=== PATIENT | male | born 1985 | race Caucasian/White ===

== ENCOUNTER 2022-06-18 07:42 | Outpatient (CLI) | payer OTHER, SELFPAY ==
[2022-06-18 08:52] LABS: SARS PCR* Negative SARS-CoV-2 (Negative)
--- NOTE | 2022-06-18 09:33 | W.ANESCHARGE ---
Anesthesia Charges Start Date/Time Anesthesia Start Date: 06/18/22 Anesthesia Start Time: 09:03 Stop Date/Time Anesthesia Stop Date: 06/18/22 Anesthesia Stop Time: 09:29 Summary Emergency: No
== END 2022-06-18 07:43 | disposition home or self-care (01) ==
LOC: OP CLINIC 07:43
PROVIDERS: PCP Nurse Practitioner Family; Visit Provider Surgery
DX: K52.9 Noninfective gastroenteritis and colitis, unspecified (principal); K57.30 Diverticulosis of large intestine without perforation or abscess without bleeding
CPT/HCPCS: 00811; 45380; 87635; 88305; J2704

== ENCOUNTER 2022-08-06 21:01 | Outpatient (CLI) | payer OTHER, SELFPAY ==
--- OUTSIDE RECORDS SUMMARY | 2022-08-06 21:04 | XMS_ITS | Continuity of Care Document ---
:1985 Author Organization [facility] Care Team Providers Name Role Phone [facility] Unavailable Unavailable Problems Combined list of problems from Department of Defense and Veterans Affairs facilities. It does not include entries that were removed or entered in error. Problem Status Onset Problem Type Date of Comments Source Date Resolution visit for: Inactive 07/26/20 Condition [facility] screening exam 11 depression Myopia, bilateral Active 10/03/18 Condition Do D 99 Regular Active 10/03/18 Condition DoD astigmatism, 99 bilateral Adjustment Disorder Active Condition [place] with Anxiety [place] HCS (ICD-9-CM 309.24) Concussion W/O Coma Active Condition [facility] HCS Gastroesophageal Active Condition [place] Reflux Disorder * [facility] (ICD-9-CM 530.81) Headaches * Active Condition [place] (ICD-9-CM 784.0) [place] [facility] Pain in joint Active Condition [place] involving shoulder V A HCS region (ICD-9-CM 719.41) Psychological Active Condition [place] factors affecting [facility] other physical condition (ICD-9-CM 316./V62.89) visit for: Active Condition [facility] services physical tendonitis Active Condition Do[place] bicipital left epistaxis Inactive Condition DoD joint pain, Active Condition Do[place] localized in the left shoulder assessment of Inactive Condition DoD patient condition work status blepharitis Inactive Condition DoD gastroenteritis Inactive Condition DoD visit for: Inactive Condition Do[place] examination of subpopulation astigmatism Inactive Condition [place] refractive error - Inactive Condition D oD myopia Diagnosis: Active Diagnosis [place] ICD-10-CM H53.30 [facility] Unspecified disorder of binocular visionwith Provider Comments: Unspecified Disorder of Binocular Vision Medications Combined list of outpatient medications from Department of Defense and Veterans Affairs facilities. Medications provided include 1) outpatient medications from the last 15 months, and 2) patient-reported medications. Medication Details Route Status Patient Prescription Prescription Last Ordering Order Source Instructions Expires Number Dispense Provider Date Date AMOX Active [id number] Nicholas EDWARDS 03/04/ Ph armac TR-POTASSIU 2 ENNIFER 2021 y Data M Transac CLAVULANATE tion (AMOXICILLI Service N/POTASSIUM Facilit CLAV), y 875-125 MG, TABLET, ORAL, SANDOZ, 20 ea. BOTTLE ESOMEPRAZOL TAKE 1 ORALLY ACTIVE NENA SUE 12/18/ [place] MAGNESIUM CAPSULE ER A 2010 OLIS V A 40MG CAP,EC BY MOUTH HCS EVERY DAY MODERNA Active [id number] BACHENBER 11/07/ P harmac COVID (12Y 1 G,RIDDHI 2021 y Clint a UP)VAC(EUA) Transac (COVID-19 tion vaccine, Service mRNA, Facilit [id number], y LNP-S (Moderna)/P F), 100MCG/0.5, VIAL, INTRAMUSC, MODERNA [employer], 5 ml VIAL OMEPRAZOLE Active [id number] BELLEFONTAINE, 11/07 4/ Pharmac (omeprazole 2 EPHANIE 2021 y Data ), 20 MG, Transac CAPSULE DR tion ORAL, Service SANDOZ, Facilit 1000 ea. y BOTTLE OMEPRAZOLE Active [id number] BELLEFONTAINE,ST 2/ Pharmac (omeprazole 2 EPHANIE 2021 y Data ), 20 MG, Transac CAPSULE , tion ORAL, Service SANDOZ, Facilit 1000 ea. y BOTTLE OMEPRAZOLE Active [id number] BELLEFONTAINE,ST 05/06 3/ Pharmac (omeprazole 2 EPHANIE 2021 y Data ), 20 MG, Transac CAPSULE DR tion ORAL, Service SANDOZ, Facilit 1000 ea. y BOTTLE OMEPRAZOLE Active [id number] EBONY 08/07 4/ Pharmac (omeprazole 1 ISMAEL 2020 y Data ), 20 MG, Transac CAPSULE DR tion ORAL, Service SANDOZ, Facilit 1000 ea. y BOTTLE PEG-3350 Active [id number] MAYER, P harmac AND 2 2021 y Data ELECTROLYTE Transac S (peg tion 3350/sod Service sulf/sod Facilit bicarb/sod y chloride/po tassium chloride), 236-22.74G, SOLN RECON, ORAL, [employer] PHARMA, 4000 ml BOTTLE Allergies, Adverse Reactions, Alerts Combined list of allergies from Department of Defense and Veterans Affairs facilities. It does not include entries that were removed or entered in error. Substance Category Reaction Severity Reaction Status Date Comments S ource type Reported No Known Drug Drug active R. W. Allergies allergy allergy 9 [place] [facility] Immunizations Combined list of available immunizations from the Department of Defense and Veterans Affairs facilities. Immunization Series Date Administered Site Reaction Lot CVX Drug St atus Comments Source Given By Number Code Cobbler Sole COVID-19, 08/27/ REECE MAYEN () Not C OVID-, DoD mRNA, LNP-S, 2020 MOTHY Given mRNA, PF, 100 mcg LNP-S, or 50 mcg PF, 100 dose mcg or 50 mcg dose Influenza, 1 16 150 Transcribed comple t Influenza DoD injectable, 2018 516 (TRS) ed , quadrivalent, inject abl preservative e, free quadrival ent, preservat michael free Influenza, 1 16 150 Seqirus (SEQ) comp let Influenza DoD injectable, 2018 518 ed , quadrivalent, inject abl preservative e, free quadrival ent, preservat michael free influenza 1 07/16/ UNK 88 Unknown (UNK) complet influenza DoD virus 2018 ed virus vaccine, vaccine, unspecified unspecif i formulation ed formulati on influenza, 1 [id number] Seqirus (SEQ) compl et influenza DoD injectable, 2016 ed , quadrivalent, inject abl contains e, preservative quadriv al ent, contains preservat michael Influenza, 1 9701 141 Seqirus (SEQ) comp let Influenza DoD seasonal, 2016 ed , injectable seasonal, injectabl e Influenza, 1 [id number] 141 Novartis complet I nfluenza DoD seasonal, 2016 Pharmaceutica ed , injectable l Preeit. (NOV) s easonal, injectabl e measles, 2 06/23/ UNK 03 Unknown (UNK) Not me asles, DoD mumps and 2015 Given mumps and rubella virus rubell a vaccine virus vaccine varicella 1 01/10/ UNK 21 Unknown (UNK) Not v aricella DoD virus vaccine 2015 Given virus vaccine Influenza, 1 07/30/ [id number] 150 Unknown (UNK) comple t Influenza DoD injectable, 2013 ed , quadrivalent, inject abl preservative e, free quadrival ent, preservat michael free Influenza, 1 09/11/ [id number] 153 Novartis complet I nfluenza DoD injectable, 2013 Pharmaceutica ed , Madin Grace l Preeti. (NOV) injectabl Canine e, Madin Kidney, Grace preservative Canine free Kidney, preservat michael free tetanus 1 07/29/ [id number] 115 Sanofi complet tetanu s DoD toxoid, 2011 Pasteur (PMC) ed toxo id, reduced reduced diphtheria diphtheri toxoid, and a toxoid , acellular and pertu is acellular vaccine, pertussis adsorbed vaccine, adsorbed Influenza, 1 07/29/ [id number] 140 [employer]KlNeuronex complet Influenza DoD seasonal, 2011 1AA (SKB) ed , injectable, seasonal , preservative injecta bl free e, preservat michael free Influenza, 1 07/11/ [id number] 140 MedImmune, complet Influenza DoD seasonal, 2010 Inc. (MED) ed , injectable, seasonal , preservative injecta bl free e, preservat michael free INFLUENZA, complet [place] UNSPECIFIED 2010 ed OL IS VA FORMULATION HC S influenza 1 07/28/ [id number] 15 CSL complet influe nza DoD virus 2010 Biotherapies, ed virus vaccine, Inc. (CSL) vaccin e, split virus split (incl. virus purified (incl. surface purified antigen)-reti surfac e red CODE antigen)- retired CODE Novel 1 08/19/ [id number] 127 Novartis complet Novel DoD influenza-H1N 2008 1A Pharmaceutica ed influenza 10-14, l Preeti. (NOV) -H1N1- 09, injectable injectabl e anthrax 3 08/17/ [id number] 24 Unknown (UNK) complet anthrax DoD vaccine 2009 ed vaccine influenza 1 06/30/ [id number] 15 Sanofi complet infl uenza DoD virus 2009 Pasteur (PMC) ed virus vaccine, vaccine, split virus split (incl. virus purified (incl. surface purified antigen)-reti surfac e red CODE antigen)- retired CODE anthrax 2 02/17/ [id number] 24 Emergent complet anthr ax DoD vaccine 2009 Bio[employer]ense ed vaccine [place] ([facility]) vaccinia 1 01/30/ [id number] 75 Unknown (UNK) comple t vaccinia DoD (smallpox) 2009 3A ed (smallpox vaccine ) vaccine anthrax 1 01/18/ [id number] 24 Emergent complet anthr ax DoD vaccine 2009 [employer] ed vaccine [employer] [place] (MIP) typhoid Vi 1 01/18/ [id number] 101 Sanofi complet typh oid DoD capsular 2008 Pasteur (PMC) ed Vi polysaccharid capsul ar e vaccine polysacch aride vaccine influenza 1 11/23/ [id number] 111 Unknown (UNK) compl et influenza DoD virus 2009 ed virus vaccine, vaccine, live, live, attenuated, attenuat e for d, for intranasal intranasa use l use TD(ADULT) 139 complet A RMY UNSPECIFIED 2008 ed FORMULATION influenza 1 10/17/ [id number] 111 MedImmune, complet influenza DoD virus 2008 Inc. (MED) ed virus vaccine, vaccine, live, live, attenuated, attenuat e for d, for intranasal intranasa use l use hepatitis B 3 07/12/ [id number] 43 [employer] [facility] t hepatitis DoD vaccine, 2006 0CA (SKB) ed B adult dosage vaccine , adult dosage hepatitis A 3 07/12/ AHAVB11 52 [employer] [facility] t hepatitis DoD vaccine, 2006 5CA (SKB) ed A adult dosage vaccine , adult dosage hepatitis A 2 11/12/ AHABB04 104 [facility] hepatitis DoD and hepatitis 2005 3CC (SKB) ed A and B vaccine hepatitis B vaccine measles, 1 0936P 03 Merck (MSD) complet me asles, DoD mumps and 2006 ed mumps and rubella virus rubell a vaccine virus vaccine tetanus and 1 10/10/ [id number] 09 Sanofi complet te tanus DoD diphtheria 2005 Pasteur (PMC) ed a nd toxoids, diphtheri adsorbed, a preservative toxoids , free, for adsorbed, adult use (2 preserv at Lf of tetanus michael fr ee, toxoid and 2 for edd lt Lf of use (2 Lf diphtheria of toxoid) tetanus toxoid and 2 Lf of diphtheri a toxoid) poliovirus 1 10/10/ Y0575 10 Sanofi complet polio viru DoD vaccine, 2006 Pasteur (PMC) ed s inactivated vaccine, inactivat ed meningococcal 1 10/10/ [id number] 32 Sanofi complet meningoco DoD polysaccharid 2006 Pasteur (PMC) ed ccal e vaccine polysacch (MPSV4) aride vaccine (MPSV4) hepatitis A 1 10/10/ AHABB03 104 SmithKline comple t hepatitis DoD and hepatitis 2006 0BA (SKB) ed A and B vaccine hepatitis B vaccine influenza 1 10/10/ [id number] 111 [facility] influenza DoD virus 2006 Inc. (MED) ed virus vaccine, vaccine, live, live, attenuated, attenuat e for d, for intranasal intranasa use l use Encounters Combined list of: 1) Encounters from Department of Veterans Affairs facilities going back up to the last 18 months. 2) Encounters from the Department of Defense facilities going back up to 280 months. Location Location Encounter Encounter Reason Attending ADM DC Stat us Disposition Source Details Type Number For Provider Date Date Visit OUTPATIENT [id number] RC, 10/09 Released w/o General SEEMA /2006 Limitations [facility] LAVINIA Teresa(IEP Optomet ry) OUTPATIENT [id number] 05/27 Released w /o Theater /2008 Limitations Facilit y OUTPATIENT [id number] 11/21 Released w /o Theater /2009 Limitations Facilit y OUTPATIENT [id number] 12/11 Released w /o Theater /2009 Limitations Facilit y OUTPATIENT [id number] harry REYES, 07/25 Release d w/o R. W. r SHANNON B Limitations Blis s injury [facility] JOSEPH Villatoro(Scor pion Team) OUTPATIENT [id number] harry NOLEN, 08/12 Release d R. W. r pain JOELLE with [place] Work/Duty [facility] Limitations JOSEPH Villatoro(Scor pion Team) [facility]PATIENT [id number] [facility], 08/22 Relea sed w/o R. W. UPDATE JOHN E. Limitations [place] [facility] JOSEPH Villatoro(Opto metry Clinic) OUTPATIENT [id number] f/u jose NOLEN, 09/04 Released R. W. harry LAI with [place] r Work/Duty [facility] Limitations JOSEPH Villatoro(Scor pion Team) OUTPATIENT [id number] ximena SCHWARTZ, 12/08 Release d w/o [place] 5 prescri CASANOVA Limitations hl p and [facility] request Optomet info ry) about laser surgery OUTPATIENT [id number] mha/430 [place], 03/17 Relea sed w/o [place]st[place] 0 6745 LEOBARDO GONZALEZIC Limitations hl [facility] M01B Red) OUTPATIENT [id number] pha/430 KENDRICK, 03/18 Release d w/o [place] 3 6745 ROGELIO Limitations hl BAH [facility] M01A Green) OUTPATIENT [id number] Notes ALEXIS 03/18 Relea sed w/o [facility] 6 Entered XI Limitations hl by: JUDAH [facility] LAUREN DEIDRE Hearing S,JUDAH Conserv A 13 ation) Mar 2019 0957 ------- ------- ------- ------- -- Audiogr am OUTPATIENT [id number] Gwendolyn REEVES, 07/16 Released w/o [place] 7 Entered MEG L Limitations hl by: [facility] LEANDRO, M01C MEG West) L 16 Jul 2019 0917 ------- ------- ------- ------- -- Flu late entry 019 OUTPATIENT [id number] MANISHA SCHWARTZ, 08/19 Release d w/o [place] 2 CASANOVA L Limitations hl [facility] Optomet ry) OUTPATIENT [id number] initial WENDY, 09/22 Relea sed w/o [place] 8 consult IFRAH Limitations hl [facility] Ophthal mology) OUTPATIENT [id number] BRIEF SHAW, 10/26 Released w/o [place] 0 SHANNON Limitations hl [facility]hthal [facility]) OUTPATIENT [id number] consent SHAW, 10/28 Releas ed [employer] 1 SHANNON with hl Work/Duty [facility] Limitations Ophthal mology) OUTPATIENT [id number] 1 day SHAW, 10/29 Released w/o [employer] 1 pop Limitations hl lasik [facility]) OUTPATIENT [id number] 1 week SHAW, 11/03 Release d w/o [place] 7 pop SHANNON Limitations hl lasik [facility] Ophthal [facility]) OUTPATIENT [id number] f/u EFREN, 11/30 Release d w/o [place] 7 lasik CASANOVA L /2020 Limitations hl surgery [facility] - Optomet [id number] ry) OUTPATIENT [id number] Sleep [place], 12/08 Release d w/o [place] 9 initial LEOBARDO CHIU Limitations h l /////// [facility]([address] Red) OUTPATIENT [id number] Gwendolyn KENDRICK, 12/16 Released w/o [employer] 2 Entered ROGELIO Limitations hl by: OLVIN [facility] JAIME, M01A JUMA Price) 17 Dec 2019 1534 ------- ------- ------- ------- -- Possibl e COVID J2 TELE [id number] Notes NIKKY, 12/20 Land varsha CONSULT 7 Entered hl by: [facility] Manju KENDRICK M01A CHARU Price) TORO Haley 21 Dec 2019 0828 ------- ------- ------- ------- -- Negativ e COVID OUTPATIENT [id number] Gwendolyn ZULUAGA, 01/18 Relea sed w/o [employer] 2 Entered Limitations hl by: GUANAKO [facility] HAYDEE M01A ALISE ARDON) EZEKIEL MUJICA 19 Jan 2020 1057 ------- ------- ------- ------- -- Labs OUTPATIENT [id number] Gwendolyn NICHOLAS, 01/23 Released w/o [employer] 6 Entered ALANIS P Limitations hl by: [facility] Nicholas NICHOLAS EREMY P Conserv Jan ation) 2019 1411 ------- ------- ------- ------- -- audiogr am OUTPATIENT [id number] shpe/ 1 KARYNA, 01/30 Releas ed w/o Landstu 1 [phone] FRANK H Limitations h l 5438 [facility] M01B Red) TELE [id number] Gwendolyn VENCES, 02/09 Land varsha CONSULT 7 Entered BOBBY hl by: [facility] CRISTOFER M01B ANO,THE Red) BINH M 10 Feb 2020 0849 ------- ------- ------- ------- -- Referra l to [facility] TELE [id number] Notes [facility], 02/13 Landstu CONSULT 2 Entered hl by: ALESSANDRO [facility] CRISTOFER M01B ANO,THE Red) [facility] 14 Feb 2020 0715 ------- ------- ------- ------- -- Referra l OUTPATIENT [id number] Notes [facility]02/16 Released w/o Landstu 9 Entered Limitations hl by: ALESSANDRO [facility], M01A TEJINDER Price) KIKA Negrete 17 Feb 2020 1014 ------- ------- ------- ------- -- care coordin ation follow up OUTPATIENT [id number] Notes [facility]02/22 Released w/o [place] 0 Entered Limitations hl by: ALESSANDRO [facility], M01A TEJINDER Price) KIKA Negrete 23 Feb 2020 1447 ------- ------- ------- ------- -- new bere hagen CASE [id number] Diagnos DORSIOBHAN-ERIC 04/03 [place] MANAGEMENT [id number] is: RAGINI POWER /2020 [facility] ICD-10- LLE L [facility] CM H53.30 Unspeci fied disorde r of binocul ar vision< br/>wit h Provide r Comment s: Unspeci fied Disorde r of Binocul ar Vision Procedures Combined list of: 1) Procedures from Department of Veterans Affairs facilities going back up to the last 18 months, not all VA non-surgical procedures are included; 2) All procedures from the Department of Defense facilities. Procedure Procedure Type Code Date Perfomer Comments Sourc e Ear mold/insert, CASILLASGAXIO DoD not disposable, any 019 JUDAH BRINK type DEIDRE Patient education, CASILLASGAXIO DoD not otherwise cla 019 LA, JUDAH ified, DEIDRE non-physician provider, individual, per se ion Threshold Audiogram Threshold Audiogram 0208T ALEXIS GOMEZ DoD (Pure Tone) (Pure Tone) 019 JUDAH BRINK Automated Automated DEIDRE Psychometric Psychometric 80825 MARGA [place] Emotional / Emotional / 019 LEOBARDO CHIU Behavioral A e ment Behavioral Assessment [facility] Services [id number] Adithya SCHWARTZ [facility] Fitting Monofocal Fitting Monofocal 019 L Except For Aphakia Except For Aphakia Ophthalmological Ophthalmological 31856 JOCELYNE SCHAWRTZ [facility] New Patient Start New Patient Start 019 L Comprehensive Care [place] [address] [facility] Refractive State Refractive State 019 [place] [address] JOHN [place] WITHOUT DoD Visual Acuity, Visual Acuity, 011 E. GLASSES Quantitative, Quantitative, 20/400 [facility] Bilateral Bilateral WITH GLASSES 20/20 OU [facility] UPDATED 12/04 FOR VISION [place] [address] [facility] Refractive State Refractive State 006 CHRISTOPHER M [facility] [address] [facility] Fitting Monofocal Fitting Monofocal 006 CHRISTOPHER M Except For Aphakia Except For Aphakia Influenza Split Influenza Split [address] [facility] Virus Vaccine IM Virus Vaccine IM MEG Villegas With Preservative With Preservative Quadrivalent 0.50mL Quadrivalent 0.50mL Dosage Dosage Immunization Immunization 32012 [facility] Administration By Administration By MEG Villegas Injection, One Injection, One Vaccine Vaccine Ophthalmological Ophthalmological 55917 [facility] Prior Patient Start Prior Patient Start L Comprehensive Care [place] [address] [facility] Refractive State Refractive State L Computerized Computerized 63774 [facility] Corneal Topography Corneal Topography L Ophthalmological Ophthalmological 39189 IFRAH NGUYEN [facility] New Patient Start New Patient Start L Comprehensive Care Comprehensive Care Corneal Pachymetry Corneal Pachymetry 45864 SAE NGUYEN Both Eyes Both Eyes L Laser in situ BOB, see [facility] keratomileusis JIMBO for surgery (LASIK) documents Postoperative Postoperative 99919 Do Piyush SQUIRES Visit, Without Visit, Without SHANNON Hendricks Laser in situ SCHWARTZ, CASANOVA Do D keratomileusis L (LASIK) Behavioral health Do Piyush [place] outreach service LEOBARDO CHIU (planned approach to reach a targeted population) Psychometric Psychometric 19193 [place], [facility]-20, [facility] Emotional / Emotional / LEOBARDO CHIU CSSRS, RIP, Behavioral A e ment Behavioral [place] Assessment Sleepiness scale Non-Physician Phone Non-Physician Phone [phone] Beverly SHER Call To Call To FLY Patient/Provider Patient/Provider Brief (5-10min) Brief (5-10min) Threshold Audiogram Threshold Audiogram 0208T GAVIN NICHOLAS (Pure Tone) (Pure Tone) P Automated Automated Patient education, ALANIS NICHOLAS not otherwise cla P ified, non-physician provider, individual, per se ion Coordinated care TEJINDER MCALLISTER [facility] fee, risk adjusted MERIZIER maintenance SCREENING TEST OF Do D VISUAL ACUITY, 011 QUANTITATIVE, BILATERAL SKIN TEST; [facility] TUBERCULOSIS, 009 INTRADERMAL IMMUNIZATION DoD ADMINISTRATION 006 (INCLUDES PERCUTANEOUS, INTRADERMAL, SUBCUTANEOUS, OR INTRAMUSCULAR INJECTIONS); 1 VACCINE (SINGLE OR COMBINATION VACCINE/TOXOID) HEPATITIS A AND [facility] HEPATITIS B VACCINE 006 (HEPA-HEPB), ADULT DOSAGE, FOR INTRAMUSCULAR USE FITTING OF [facility] SPECTACLES, EXCEPT 006 FOR APHAKIA; MONOFOCAL SKIN TEST; [facility] TUBERCULOSIS, 006 INTRADERMAL SKIN TEST; [facility] TUBERCULOSIS, 010 INTRADERMAL COORDINATED CARE DoD FEE, RISK ADJUSTED 020 MAINTENANCE COORDINATED CARE [facility] FEE, RISK ADJUSTED 020 MAINTENANCE SCREENING TEST OF Do D VISUAL ACUITY, 020 QUANTITATIVE, BILATERAL PATIENT EDUCATION, D oD NOT OTHERWISE 020 CLASSIFIED, NON-PHYSICIAN PROVIDER, INDIVIDUAL, PER SESSION TELE ASSESS & MGT Do D SRV PROV QUAL 020 NONPHYS HLTH CARE PRO TO EST PAT,PARENT,GUARD NOT ORIG REL ASSESS & MGT SRV PROV W/IN PREV 7 DAYS NOR LEAD ASSESS & MGT SRV/PX W/IN NXT 24 HR/SOON APT;5-10 MIN MED DIS BRIEF DoD EMOTIONAL/BEHAVIORA 020 L ASSESSMENT (EG, DEPRESSION INVENTORY, ATTENTION-DEFICIT/H YPERACTIVITY DISORDER [ADHD] SCALE), WITH SCORING AND DOCUMENTATION, PER STANDARDIZED INSTRUMENT LASER IN SITU [facility] KERATOMILEUSIS 020 (LASIK) POSTOPERATIVE DoD FOLLOW-UP VISIT, 020 NORMALLY INCLUDED IN THE SURGICAL PACKAGE, INDICATE THAT EVALUATION & MANAGEMENT SERVICE WAS PERFORMED DURING A POSTOPERATIVE PERIOD REASON RELATED ORIGINAL PROCEDURE POSTOPERATIVE DoD FOLLOW-UP VISIT, 020 NORMALLY INCLUDED IN THE SURGICAL PACKAGE, INDICATE THAT EVALUATION & MANAGEMENT SERVICE WAS PERFORMED DURING A POSTOPERATIVE PERIOD REASON RELATED ORIGINAL PROCEDURE LASER IN SITU [facility] KERATOMILEUSIS 020 (LASIK) OPHTHALMOLOGICAL DoD SERVICES: MEDICAL 020 EXAMINATION AND EVALUATION, WITH INITIATION OR CONTINUATION OF DIAGNOSTIC AND TREATMENT PROGRAM; INTERMEDIATE, ESTABLISHED PATIENT OPHTHALMIC [facility] ULTRASOUND, 019 ECHOGRAPHY, DIAGNOSTIC; CORNEAL PACHYMETRY, UNILATERAL OR BILATERAL (DETERMINATION OF CORNEAL THICKNESS) COMPUTERIZED [facility] CORNEAL TOPOGRAPHY, 019 UNILATERAL OR BILATERAL, WITH INTERPRETATION AND REPORT IMMUNIZATION DoD ADMINISTRATION 019 (INCLUDES PERCUTANEOUS, INTRADERMAL, SUBCUTANEOUS, OR INTRAMUSCULAR INJECTIONS); 1 VACCINE (SINGLE OR COMBINATION VACCINE/TOXOID) PURE TONE [facility] AUDIOMETRY 019 (THRESHOLD), AUTOMATED; AIR ONLY SCREENING TEST OF Do D VISUAL ACUITY, 019 QUANTITATIVE, BILATERAL BRIEF DoD EMOTIONAL/BEHAVIORA 019 L ASSESSMENT (EG, DEPRESSION INVENTORY, ATTENTION-DEFICIT/H YPERACTIVITY DISORDER [ADHD] SCALE), WITH SCORING AND DOCUMENTATION, PER STANDARDIZED INSTRUMENT FITTING OF DoD SPECTACLES, EXCEPT 019 FOR APHAKIA; MONOFOCAL Social History Combined list of available smoking, tobacco, and other social history from Department of Defense andVeterans Affairs facilities. Social History Type Response Date Comment Source Tobacco smoking status LIFETIME [facility] This section is an [facility] empty social history section.
--- OUTSIDE RECORDS SUMMARY | 2022-08-06 21:06 | XMS_ITS | Encounter Summary ---
:1985 Author Organization [facility] Address [address] [place] [address] Care Team Providers Name Role Phone Rody Washburn APRN C.N.PAlice, D.N.P. Primary Care Provid Reason for Referral Outpatient (Routine) - Closed Specialty Diagnoses / Procedures Referred By Contact Refer red To Contact Emergency Medicine Diagnoses Pain Left Ankle And Joints Left Foot Chino Shine [facility] Tequila GAVIRIA M.D. [address] [address] Referral ID Status Reason Start Date Expiration Date Visits Requ ested Visits Authorized [id number] Closed 06/14/2021 06/14/2022 1 1 Reason for Visit Reason Comments Leg Injury Encounter Details Date Type Department Care Team Description 06/14/2021 Emergency [place] [facility] Eliza Shine Pain Left Ankle And Mary Mehta III, M.D. Joints Left Foot [id number] (Primary Dx) [place] [phone] (Wo rk) Social History Tobacco Use Types Packs/Day Years Used Date Smoking Tobacco: Former Smokeless Tobacco: Never Alcohol Use Standard Drinks/Week Comments Yes 0 (1 standard drink = 0.6 oz pure alcoho l) 20 drinks weekly Alcohol Habits Answer Date Recorded How often do you have a drink containing 4 or more times a w lower sioux 03/15/2021 alcohol? How many drinks containing alcohol do you have 3 or 4 03/15/2021 on a typical day when you are drinking? How often do you have six or more drinks on one Never 03/15/2021 occasion? Social Isolation Answer Date Recorded In a typical week, how many times do you Twice a week 03/15/2021 talk on the phone with family, friends, or neighbors? How often do you get together with friends Once a week 03/15/2021 or relatives? How often do you attend mu-ism or uatsdin Never 03/15/2021 services? Do you belong to any clubs or organizations Yes 03/15/2021 such as mu-ism groups, unions, [employer] or athletic groups, or school groups? How often do you attend meetings of the More than 4 times pe r year 03/15/2021 clubs or organizations you belong to? Are you now , , , 03/15/2021 , never or living with a partner? Physical Activity Answer Date Recorded On average, how many days per week do you engage in moderate to 4 days 03/15/2021 strenuous exercise (like walking fast, running, jogging, dancing, swimming, biking, or other activities that cause a light or heavy sweat)? On average, how many minutes do you engage in exercise at th is 60 min 03/15/2021 level? Stress Answer Date Recorded Do you feel stress - tense, restless, nervous, or Only a lit tle 03/15/2021 anxious, or unable to sleep at night because your mind is troubled all the time - these days? Financial Resource Strain Answer Date Recorded How hard is it for you to pay for the very basics like Not v nika hard 03/15/2021 food, housing, medical care, and heating? Intimate Partner Violence Answer Date Recorded Within the last year, have you been afraid of your partner o r No 03/15/2021 ex-partner? Within the last year, have you been humiliated or emotionall y No 03/15/2021 abused in other ways by your partner or ex-partner? Within the last year, have you been kicked, hit, slapped, or No 03/15/2021 otherwise physically hurt by your partner or ex-partner? Within the last year, have you been raped or forced to have any No 03/15/2021 kind of sexual activity by your partner or ex-partner? Food Insecurity Answer Date Recorded Within the past 12 months, you worried that your food would Never true 03/15/2021 run out before you got money to buy more. Within the past 12 months, the food you bought just didn't N ever true 03/15/2021 last and you didn't have money to get more. Transportation Needs Answer Date Recorded In the past 12 months, has lack of transportation kept you f rom No 03/15/2021 medical appointments or from getting medications? In the past 12 months, has lack of transportation kept you f rom No 03/15/2021 meetings, work, or getting things needed for daily living? Housing Stability Answer Date Recorded In the last 12 months, was there a time when you were not ab le No 03/15/2021 to pay the mortgage or rent on time? In the last 12 months, how many places have you lived? 1 03/15/2021 In the last 12 months, was there a time when you did not hav e a No 03/15/[address] sleep or slept in a alf (including now)? Education Answer Date Recorded What is the highest level of school Master's degree (e.g., M A, MS, 03/14/2021 you have completed or the highest Shubham, MEd, MILLWORK ESTIMATOR, LAURA) degree you have received? Sex Assigned at Date Recorded Not on file documented as of this encounter Last Filed Vital Signs Vital Sign Reading Time Taken Comments Blood Pressure 138/89 06/14/2021 10:05 AM CDT Pulse 68 06/14/2021 10:05 AM CDT Temperature 36.8 ??C (98.2 ??F) 06/14/2021 10:05 AM CDT Respiratory Rate 16 06/14/2021 10:05 AM CDT Oxygen Saturation 98% 06/14/2021 10:05 AM CDT Inhaled Oxygen Concentration - - Weight 102 kg (224 lb 13.9 oz) 06/14/2021 10:07 AM CDT Height - - Body Mass Index 33.31 03/15/2021 10:53 AM CDT documented in this encounter Discharge Instructions AttachmentsThe following attachments cannot be sent through Care Everywhere.Foot Pain (Hong Konger)documented in this encounter Medications at Time of Discharge Medication Sig Dispensed Refills Start Date End Date diphenhydrAMINE-aceta Take 1 tablet by mouth 0 minophen (TYLENOL PM at bedtime as needed. EXTRA STRENGTH) sleep, do not take more 25-500 mg per tablet than 4 grams total of acetomenophen from all sources naproxen (NAPROSYN) Take 500 mg by mouth 2 0 05/06 500 mg tablet (two) times a day. omeprazole (PriLOSEC) Take 1 capsule (20 mg 90 capsule 3 08/24/[address] capsule total) by mouth daily. documented as of this encounter ED Notes Chino Shine III, M.D. - 06/14/2021 11:11 AM CDT Images from the original note were not included. SUBJECTIVE CHIEF COMPLAINT/REASON FOR VISIT Leg Injury HISTORY OF PRESENT ILLNESS History provided by: Patient and medical records Foot Injury Location: Foot Foot location: L foot Pain details: Quality: Aching, sharp and shooting Radiates to: Does not radiate Severity: Moderate Onset quality: Sudden Duration: 1 day Timing: Constant Progression: Worsening Chronicity: Recurrent Dislocation: no Foreign body present: No foreign bodies Prior injury to area: Yes Relieved by: NSAIDs (pain is improved with walking boot.) Worsened by: Bearing weight and flexion Associated symptoms: decreased ROM Associated symptoms: no back pain, no fatigue, no fever, no itching, no muscle weakness, no numbness, no stiffness, no swelling and no tingling Risk factors: no concern for non-accidental trauma, no frequent fractures, no known bone disorder, no obesity and no recent illness He has had problems with this for a month. He was previously put in a walking boot. REVIEW OF SYSTEMS Constitutional: Negative for fatigue and fever. HENT: Negative for congestion and sore throat. Respiratory: Negative for shortness of breath. Cardiovascular: Negative for leg swelling. Musculoskeletal: Positive for extremity pain. Negative for back pain and stiffness. Skin: Negative for itching. OBJECTIVE Initial Vitals Temperature Pulse Rate Heart Rate Resp Rate Blood Pressure SpO2 06/14/21 1005 06/14/21 1005 -- 06/14/21 1005 06/14/21 1005 06/14/21 1005 36.8 ??C 68 16 138/89 98 % Pain Score 06/14/21 1009 7 PHYSICAL EXAMINATION Constitutional: Nursing note and vitals reviewed. Musculoskeletal: Left foot: Swelling present. No foot drop. Feet: Neurological: Alert and oriented to person, place, and time. He has normal sensation. ASSESSMENT/PLAN IMPRESSION AND PLAN Persistent mid left foot pain that is worse today than in previous days. Initially there was a possibility of a Lisfranc fracture but none was identified. I recommended that he follow up with primary medical provider for consideration of more advanced imaging. In the meantime, he should continue with the boot and use [id number] medications for pain management. Reasons return to the emergency department discussed in detail. DIFFERENTIAL DIAGNOSIS Conditions include, but are not limited to: Fracture, sprain, contusion, dislocation, vascular damage, nerve damage, ligament damage, tendon damage, and other etiologies. I reviewed previous medical records including documentation from previous visits and radiology images/report. I personally reviewed the radiology image(s) and reviewed the radiology report(s). The Radiology exam interpretation(s) is/are normal. Final Diagnoses: as of Jun 14 1111 Pain Left Ankle And Joints Left Foot Chino Shine III, M.D. 06/14/211919 documented in this encounter Plan of Treatment Scheduled Referrals Name Type Priority Associated Order Schedule Diagnoses POST ED VISIT Outpatient Referral Routine Pain Left Ankle And Expected: Orthopedic Surgery Joints Left Foot 06/17 (Approximate), Expires: 06/26/2024 documented as of this encounter Procedures Procedure Name Priority Date/Time Associated Comments Diagnosis DX FOOT LEFT 3+ RAD - Semiurgent 06/14/2021 10:38 Resu lts for this VIEWS (Fast; most ED AM CDT procedure are in patients; some the results inpatients) section. documented in this encounter Results DX Foot Left 3+ Views (06/14/2021 10:38 AM CDT) Anatomical Region Laterality Modality Lower Extremity, Foot, Musculoskeletal RST LOS, Left Digital Radiography Musculoskeletal ARZ LOS, Muskuloskeletal FLA LOS Specimen (Source) Anatomical Collection Method Collection Time Re ceived Time Location / / Volume Laterality 06/14/2021 10:41 AM CDT Impressions 06/14/2021 10:42 AM CDT No acute abnormality. Narrative 06/14/2021 10:42 AM CDT EXAM: DX FOOT LEFT 3+ VIEWS COMPARISON: 06/04/2021 FINDINGS: Accessory ossicle adjacent to the cuboid and navicular. No acute fracture. No soft tissue abnormality. Procedure Note Kashmir Blake M.D. - 06/14/2021Formatti ng of this note might be different from the original. EXAM: DX FOOT LEFT 3+ VIEWS COMPARISON: 06/04/2021 FINDINGS: Accessory ossicle adjacent to the cuboid and navicular. No acute fracture. No soft tissue abnormality. IMPRESSION: No acute abnormality. Chino Shine III, M.D. IMG DIAGNOSTIC IMAGING PROCEDURES documented in this encounter Visit Diagnoses Diagnosis Pain Left Ankle And Joints Left Foot - P rimary documented in this encounter Care Teams Funeral Pre Arrangement Counselor Relationship Specialty Start Date End Date Rody Washburn APRN, C.N.P., D.N.P . PCP - General 05/07/[address] [place] [address] documented as of this encounter
--- OUTSIDE RECORDS SUMMARY | 2022-08-06 21:06 | XMS_ITS | Clinical Summary ---
:1985 Author Organization [facility] Address [address] [place] [address] Care Team Providers Name Role Phone Rody Washburn APRN, C.N.P., D.N.P. Primary Care Provid er Source Comments Patient records contain information from all sites at [facility]. For routine questions regarding patient records, call [phone] during business hours, M-F 8:00 AM - 5:00 PM Central Time. Record requests for emergency care only can be directed to [phone] at any time.[facility] Allergies No known active allergies Medications Medication Sig Dispensed Refills Start Date End Date Status diphenhydrAMINE-ac Take 1 tablet by 0 08/24/2017 Active etaminophen mouth at bedtime as (TYLENOL PM EXTRA needed. sleep, do not STRENGTH) 25-500 take more than 4 mg per tablet grams total of acetomenophen from all sources naproxen Take 500 mg by mouth. 0 05/17/2021 Active (NAPROSYN) 500 mg tablet naproxen Take 500 mg by mouth 0 05/17/2021 Active (NAPROSYN) 500 mg 2 (two) times a day. tablet omeprazole TAKE 1 CAPSULE BY 90 capsule 3 11/26/2021 Active (PriLOSEC) [address] capsule Active Problems Problem Noted Date Tear Hip Labral Initial Right 07/09/2018 Pain Hip Right 02/28/2015 Overview: Right hip borderline dysplasia. Femoroacetabular impingement. Gastroesophageal Reflux Disease Without Esophagitis Encounters Date Type Specialty Care Team Description 05/24/2022 Orders Only Rody Washburn APRN, C .N.P., Screening Lipid D.N.P. from Last 3 Months Immunizations Name Administration Dates Next Due Anthrax 08/17/2009 H1N1 Inj 08/19/2009 HepA / HepB 11/12/2005 HepA Adult 07/12/2007 HepB Adult 07/12/2007 IPV 10/10/2005 Influenza (IM) Preservative Free 07/08/2016, 10/26/2015, Influenza Split 07/07/2017, 07/30/2014, 08/18/2013, 07/28/2010 Influenza TIV (IM) 07/09/2016 Influenza, Injectable, Quadrivalent 07/16/2018, 07/17/2017 Influenza, Seasonal, Injectable 07/11/2015, 07/26/2014, 10/2012 Influenza, Unspecified 07/20/2020, 07/16/2018, 09/11/2013, 08/06/2010 MPSV4 10/10/2005 PPSV23 10/27/2012 Smallpox 01/30/2009 Td, (Adult) Unspecified 10/06/2008, 10/10/2005 Tdap 07/29/2012 TyVi (inj) 01/18/2009 CHARI 10/06/1988 influenza LAIV (Nasal) (2 years 11/23/2008 through 49 years) influenza high dose (65 years or 07/07/2017, 07/30/2014, older) (PF) influenza vaccine quad 06/22/2020, 07/15/2019 (FLUZONE/FLUARIX) (6 months and older)(PF) Social History Tobacco Use Types Packs/Day Years Used Date Smoking Tobacco: Former Smokeless Tobacco: Never Alcohol Use Standard Drinks/Week Comments Yes 0 (1 standard drink = 0.6 oz pure alcoho l) 20 drinks weekly Alcohol Habits Answer Date Recorded How often do you have a drink containing 4 or more times a w marshall 03/15/2021 alcohol? How many drinks containing alcohol [...] or relatives? How often do you attend sabianism or mu-ism Never 03/15/2021 services? Do you belong to any clubs or organizations Yes 03/15/2021 such as sabianism groups, unions, fraternal or athletic groups, or school groups? How [...] pay for the very basics like Not liberty nika hard 03/15/2021 food, housing, medical care, [...] place to sleep or slept in a half-way (including now)? Education Answer Date Recorded What is the highest level of school Master's degree (e.g., M A, MS, 03/14/2021 you have completed or the highest Shubham, MEd, POTATO CHIP PROCESSING SUPERVISOR, LAURA) degree you have received? Sex Assigned at Date Recorded Not on file Last Filed Vital Signs Vital Sign Reading Time Taken Comments Blood Pressure 138/89 06/14/2021 10:05 AM CDT Pulse 68 06/14/2021 10:05 AM CDT Temperature 36.8 ??C (98.2 ??F) 06/14/2021 10:05 AM CDT Respiratory Rate 16 06/14/2021 10:05 AM CDT Oxygen Saturation 98% 06/14/2021 10:05 AM CDT Inhaled Oxygen Concentration - - Weight 102 kg (224 lb 13.9 oz) 06/14/2021 10:07 AM CDT Height 175 cm (5' 8.9) 03/15/2021 10:53 AM CDT Body Mass Index 33.31 03/15/2021 10:53 AM CDT Plan of Treatment Health Maintenance Due Date Last Done Comments HIV Screening 1985 Hepatitis C Screening 1985 Lipid (Cholesterol) 1985 Screening Depression Screening (Annual 10/06/2021 PHQ-2) COVID-19 Vaccine (4 - 10/22/2021 08/27/2021, 01/14/2021, Booster for Moderna series) 12/17/2020 DTaP,Tdap,and Td Vaccines (2 07/29/2022 07/29/2012, 009, - Td or Tdap) 10/10/2005 Hepatitis B Vaccines Completed 07/12/2007, 11/12/2005, 10/10/2005 Orthopoxvirus Vaccine Completed 01/30/2009 Pneumococcal vaccine (0-64 Aged Out 10/27/2012 No lo nger eligible years) based on patient 's age to complete this topic Influenza Vaccine Completed 07/11/2022, 07/04/2021, 07/20/2020, Additional history exists Medical Devices Implanted Type Area Granite Installer Device Shelf Model / Identifier Expiration Date Ser ial / Lot Trimed-Screw Magalie. 2.3mm X 24mm - [place] [id number] Hardware e.g. [employer] Implanted: Qty: 1 on 12/03/2012 pins/screws/r ods Description: Device Granite Installer - Tr[employer] d [employer].. Device Status Text - [id number]. Self Tap-Screw 4.5 X 76 - [place] [id number] Hardware e.g. pins/screws/r ods Depuy Synthes Implanted: Qty: 1 on 08/25/2017 Description: Device Granite Installer - Synth es. Device Status Text - [id number]. Insurance Payer Benefit Plan Subscriber ID Effective Dates Phone Address Type / Group SHU [place] JUNEDALE [id number] [facility] [phone] [facility] T [facility] t 8 [employer] [facility] [address] [place] [address] (Work) IRIS Guaman [phone] Care Teams Pool Table Operator Relationship Specialty Start Date End Date Rody Washburn APRN, C.N.P., D.N.P . PCP - General 05/07/[address] [place] [address]
--- OUTSIDE RECORDS SUMMARY | 2022-08-06 21:06 | XMS_ITS | Encounter Summary ---
:1985 Author Organization [facility] Address [address] [place] [address] Care Team Providers Name Role Phone Rody Washburn APRN, C.NMauro, D.N.P. Primary Care Provid Reason for Referral Outpatient (Routine) - Closed Specialty Diagnoses / Procedures Referred By Contact Refer red To Contact Diagnoses Pain Foot Left [facility] ThomasNMauro, D.N.P. [address] [place] [address] Referral ID Status Reason Start Date Expiration Date Visits Requ ested Visits Authorized [id number] Closed 06/04/2021 06/04/2022 1 1 Scheduling Instructions 3 weeks out please. Reason for Visit Reason Comments Follow-up Outpatient (Routine) - Closed Specialty Diagnoses / Procedures Referred By Contact Refer red To Contact Family Medicine Diagnoses Tendonitis Peroneal Left Karina Alicea V[facility] Thomas LEDESMANMauro, D.N.P. [address] [place] [phone] Referral ID Status Reason Start Date Expiration Date Visits Requ ested Visits Authorized [id number] Closed 05/22/2021 05/22/2022 1 1 Encounter Details Date Type Department Care Team Description 06/04/2021 Office Visit Department of Family Karina Alicea Pain Foot Left (Primary Dx); Medicine, [place] Shukla, Thomas LEDESMANAlicePAlice, Aleksandar holden Peroneal Left Building, in [place], [place] 200 [facility] [address] [place] [phone] Social History Tobacco Use Types Packs/Day Years Used Date Smoking Tobacco: Former Smokeless Tobacco: Never Alcohol Use Standard Drinks/Week Comments Yes 0 (1 standard drink = 0.6 oz pure alcoho l) 20 drinks weekly Alcohol Habits Answer Date Recorded How often do you have a drink containing 4 or more times a w [place] 03/15/2021 alcohol? How many drinks containing alcohol [...] or relatives? How often do you attend holiness or yazidi Never 03/15/2021 services? Do you belong to any clubs or organizations Yes 03/15/2021 such as holiness groups, unions, fraternal or athletic groups, or [...] place to sleep or slept in a jail (including now)? Education Answer Date Recorded What is the highest level of school Master's degree (e.g., M A, MS, 03/14/2021 you have completed or the highest Shubham, MEd, NAIL CUTTER, LAURA) degree you have received? Sex Assigned at Date Recorded Not on file documented as of this encounter Last Filed Vital Signs Vital Sign Reading Time Taken Comments Blood Pressure 130/81 06/04/2021 8:07 AM CDT Pulse 70 06/04/2021 8:07 AM CDT Temperature - - Respiratory Rate - - Oxygen Saturation - - Inhaled Oxygen Concentration - - Weight - - Height - - Body Mass Index - - documented in this encounter Progress Notes Karina Alicea V., BALTAZAR, C.N.P., D.N.P. - 06/04/2021 8:00 AM CDT CHIEF COMPLAINT / REASON FOR VISIT Jhon Banegas is a 35 y.o. male presenting today for evaluation of Follow-up SUBJECTIVE HISTORY OF PRESENT ILLNESS #1 Pain Foot Left #2 Tendonitis Peroneal Left This is a 35-year-old male who is here for left foot pain, with insidious onset, about May 10, 25 days ago, while he was out of town on two weeks of service. 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 He had no specific trauma, though he was on his feet more and using different footwear. He was seen in the emergency department in [place], at an outside facility, where an x-ray was performed, and showed no bony abnormalities. He was discharged with naproxen by mouth 500 mg twice daily, whichhelped the pain initially. When I saw him 2 weeks ago, pain was 7/10, located lateral left foot and is worse when 1st rising inthe morning and rising from a seated position to walk. Whereas he was limping 2 weeks ago, he is notlimping today. Today pain is 4/10 only after prolonged walking in the boot. Has been mostly resting, elevating, taking naproxen 500 twice daily. Tried without boot one day but definitely felt a difference with pain not using the boot. The following portions of the patient???s history were reviewed and updated as appropriate: allergies, current medications, family history, medical history, social history, surgical history and problemlist. OBJECTIVE PHYSICAL EXAM GENERAL APPEARANCE: Well developed, well nourished male in no acute distress. Gait is non-antalgic. SKIN: No skin eruptions over the area of concern of the left foot. EXTREMITIES: Left foot compared to unaffected right foot. The foot and ankle are neurovascularly intact. He is able to fully actively range his left foot and ankle. He can range his ankle without much discomfort. Today there is focal tenderness of the proximal to mid- 5th metatarsal, whereas pain location was less specific on his last exam. There is no other focal tenderness. BP 130/81 (BP Location: Left arm, Patient Position: Sitting, Cuff Size: Large) Pulse 70 ASSESSMENT / PLAN #1 Pain Foot Left - DX Foot Left 3+ Views; Future; Expected date: 06/04/2021 #2 Tendonitis Peroneal Left - Family Medicine office visit (clinic) X-ray today to assess healing/potential stress reaction of the left 5th metatarsal. Continue consistent use of long boot. Discussed 2 week f/u with either primary care or Orthopedics, depending on result. Continue naproxen PRN, elevation, rest. He has paperwork for the he will send to me. documented in this encounter Miscellaneous Notes Addendum Note - Karina Alicea APRN, C.N.P., D.N.P. - 06/04/2021 8:00 AM CDT Addended by: KARINA ALICEA V on: 06/04/2021 02:20 PM Modules accepted: Orders documented in this encounter Plan of Treatment Scheduled Referrals Name Type Priority Associated Order Schedule Diagnoses Musculoskeletal - ICS Outpatient Routine Pain Foot Left Expe cted: nonsurgical consult Referral 06/25/20 21 (clinic) - RST use only ([place] roximate), Expires: 06/04/2024 documented as of this encounter Results DX Foot Left 3+ Views (06/04/2021 8:54 AM CDT) Anatomical Region Laterality Modality Lower Extremity, Foot, Musculoskeletal RST LOS, Left Digital Radiography Musculoskeletal ARZ LOS, Muskuloskeletal FLA LOS Specimen (Source) Anatomical Collection Method Collection Time Re ceived Time Location / / Volume Laterality 06/04/2021 9:10 AM CDT Impressions 06/04/2021 9:11 AM CDT Mild left hindfoot valgus and pes planus. Left foot is otherwise negative. Narrative 06/04/2021 9:11 AM CDT EXAM: ??DX FOOT LEFT 3+ VIEWS Procedure Note Magdiel Simons M.D. - 06/04/2021Forma tting of this note might be different from the original. EXAM: DX FOOT LEFT 3+ VIEWS IMPRESSION: Mild left hindfoot valgus and pes planus . Left foot is otherwise negative. Karina Alicea APRN C.N.P., D.N.P. IMG DIAGNOSTIC IMAGING PROCEDURES documented in this encounter Visit Diagnoses Diagnosis Pain Foot Left - Primary Tendonitis Peroneal Left Pain Foot Left documented in this encounter Care Teams Dimension Warehouse Supervisor Relationship Specialty Start Date End Date Rody Washburn APRN, C.N.P., D.N.P . PCP - General 05/07/19 [address] [place] [address] documented as of this encounter
--- OUTSIDE RECORDS SUMMARY | 2022-08-06 21:06 | XMS_ITS | Encounter Summary ---
:1985 Author Organization [facility] Address [address] [place] [address] Care Team Providers Name Role Phone Rody Washburn APRN, C.N.P., D.N.P. Primary Care Provid er Encounter Details Date Type Department Care Team Description 05/24/2022 Orders Only RST PCP HLTH MNT Rody Washburn APR N, Screening Lipid C.N.P., D.N.P. [address] [place], [place] [phone] (Wo rk) Social History Tobacco Use Types Packs/Day Years Used Date Smoking Tobacco: Former Smokeless Tobacco: Never Alcohol Use Standard Drinks/Week Comments Yes 0 (1 standard drink = 0.6 oz pure alcoho l) 20 drinks weekly Alcohol Habits Answer Date Recorded How often do you have a drink containing 4 or more times a w [place] 03/15/2021 alcohol? How many drinks containing alcohol [...] or relatives? How often do you attend buddhist or christian Never 03/15/2021 services? Do you belong to any clubs or organizations Yes 03/15/2021 such as buddhist groups, unions, fraternal or athletic groups, or [...] place to sleep or slept in a residential (including now)? Education Answer Date Recorded What is the highest level of school Master's degree (e.g., M [place], [place], 03/14/2021 you have completed or the highest Shubham, MEd, CUSTOMER SUCCESS SPECIALIST, LAURA) degree you have received? Sex Assigned at Date Recorded Not on file documented as of this encounter Plan of Treatment Scheduled Orders Name Type Priority Associated Diagnoses Order S chedule Lipid Panel Lab Routine Screening Lipid Expected: , Expires: 11/20/2022 documented as of this encounter Visit Diagnoses Diagnosis Screening Lipid documented in this encounter Care Teams Breast Buffer Relationship Specialty Start Date End Date Rody Washburn APRN, C.N.P., D.N.P . PCP - General 05/07/19 [address] [place] [address] documented as of this encounter
--- OUTSIDE RECORDS SUMMARY | 2022-08-06 21:06 | XMS_ITS | Encounter Summary ---
:1985 Author Organization [facility] Address [address] [place] [id number] Care Team Providers Name Role Phone Rody Washburn APRN, C.N.P., D.N.P. Primary Care Provid er Reason for Visit Reason Comments Foot Pain Left Outpatient (Routine) - Closed Specialty Diagnoses / Procedures Referred By Contact Refer red To Contact Diagnoses Pain Foot [facility] C.[facility].N.P. [address] [place] [phone] Referral ID Status Reason Start Date Expiration Date Visits Requ ested Visits Authorized [id number] Closed 06/04/2021 06/04/2022 1 1 Encounter Details Date Type Department Care Team Description 07/16/2021 Comprehensive Visit Department of Jono Olvera Pain Fo ot Left; Orthopedic Surgery H, PAliceAAlice-C. Pain Left Ankle And Joints Left Foot in [address] [place] [phone] [place], [place] [phone] (Work) [phone] Social History Tobacco Use Types Packs/Day Years Used Date Smoking Tobacco: Former Smokeless Tobacco: Never Alcohol Use Standard Drinks/Week Comments Yes 0 (1 standard drink = 0.6 oz pure alcoho l) 20 drinks weekly Alcohol Habits Answer Date Recorded How often do you have a drink containing 4 or more times a w [place] 03/15/2021 alcohol? How many drinks containing alcohol [...] or relatives? How often do you attend amish or baptism Never 03/15/2021 services? Do you belong to any clubs or organizations Yes 03/15/2021 such as amish groups, unions, fraternal or athletic groups, or [...] place to sleep or slept in a custodial (including now)? Education Answer Date Recorded What is the highest level of school Master's degree (e.g., M A, MS, 03/14/2021 you have completed or the highest Shubham, MEd, SENIOR SHAREPOINT DEVELOPER, LAURA) degree you have received? Sex Assigned at Date Recorded Not on file documented as of this encounter Consult Notes Jono Olvera P.A.-C. - 07/16/2021 8:45 AM CDT SUBJECTIVE REASON FOR VISIT ICS Orthopedic Consult Rody Washburn APRN, C.N.P., D.N.P. #1 Pain Foot Left #2 Pain Left Ankle And Joints Left Foot HISTORY OF PRESENT ILLNESS Mr. Banegas is a 35 y.o. male referred by Karina Tian APRN, C.N.P., D.N.P. for the evaluation of left lateral foot symptoms. He states symptoms developed while he was on training in early May. He recalls no injury. The pain was intense. He was evaluated immediately at that time, filed event paperwork. He has also been evaluated by med specialist at [facility] where MRI was obtained. He has been in a walking boot over the last 6 weeks. He feels pain has improved significantly while in the boot. He tried to wean out on Friday, but felt pain quickly returned. Locates pain to the lateral aspect of the left foot at approximately the base of the fifth metatarsal. OBJECTIVE PHYSICAL EXAM General: Awake and alert. No acute distress. Appropriate affect. Musculoskeletal: Examination was not performed. BMI Readings from Last 1 Encounters: 06/14/21 33.31 kg/m?? Wt Readings from Last 1 Encounters: 06/14/21 102 kg ASSESSMENT / PLAN #1 Pain Foot Left #2 Pain Left Ankle And Joints Left Foot We discussed that this has been filed as a or work related event. He is not needing emergent care or treatment. We will refer him to the appropriate clinic, [facility] where he can be fully evaluated, provided possible work restrictions and help navigate the work/ related event. He states having an MRI as well as orthopedic specialty consultation. We have provided a release of information sheet that he can have this information sent to [facility] for his upcoming appointment.We discussed in the meantime he should remain in the boot as he is pain-free while using. He indicated understanding of and agreement with the treatment plan and wished to proceed. This will be a no charge visit for the patient. Jono Olvera P.A.-C. documented in this encounter Plan of Treatment Not on filedocumented as of this encounter Visit Diagnoses Diagnosis Pain Foot Left Pain Left Ankle And Joints Left Foot documented in this encounter Care Teams Group Controller Relationship Specialty Start Date End Date Rody Washburn APRN, C.N.P., D.N.P . PCP - General 05/07/[address] [place] [address] documented as of this encounter
--- OUTSIDE RECORDS SUMMARY | 2022-08-06 21:06 | XMS_ITS | Encounter Summary ---
:1985 Author Organization [facility] Address [address] [place] [address] Care Team Providers Name Role Phone Rody Washburn APRN, C.N.P., D.N.P. Primary Care Provid Encounter Details Date Type Department Care Team Description 08/29/2021 Orders Only RST PCP HLTH MNT Rody Washburn APR N, C.N.P., D.N.P. [address] [place], [place] [phone] (Wo rk) Social History Tobacco Use Types Packs/Day Years Used Date Smoking Tobacco: Former Smokeless Tobacco: Never Alcohol Use Standard Drinks/Week Comments Yes 0 (1 standard drink = 0.6 oz pure alcoho l) 20 drinks weekly Alcohol Habits Answer Date Recorded How often do you have a drink containing 4 or more times a w [place] 03/15/2021 alcohol? How many drinks containing alcohol [...] or relatives? How often do you attend yazidi or yazidi Never 03/15/2021 services? Do you belong to any clubs or organizations Yes 03/15/2021 such as yazidi groups, unions, fraternal or athletic groups, or [...] place to sleep or slept in a [place] [facility] (including now)? Education Answer Date Recorded What is the highest level of school Master's degree (e.g., [place]ammad [place], MS, 03/14/2021 you have completed or the highest Shubham, MEd, PRIVATE DUTY RN, LAURA) degree you have received? Sex Assigned at Date Recorded Not on file documented as of this encounter Plan of Treatment Not on filedocumented as of this encounter Visit Diagnoses Not on filedocumented in this encounter Care Teams Electromechanical Equipment Tester Relationship Specialty Start Date End Date Rody Washburn APRN, C.N.P., D.N.P . PCP - General 05/07/19 [address] [place] [address] documented as of this encounter
--- OUTSIDE RECORDS SUMMARY | 2022-08-06 21:06 | XMS_ITS | Encounter Summary ---
:1985 Author Organization [facility] Address [address] [place] [address] Care Team Providers Name Role Phone Rody Washburn APRN, C.N.P., D.N.P. Primary Care [facility] Reason for Visit Reason Comments Med Refill Encounter Details Date Type Department Care Team Description 11/22/2021 Refill Department of [facility] Rody Washburn APRN, Med Refill Medicine, [facility], C.N. P., D.N.P. in [facility] [address] [facility] [address] [place] [address] [place] [address] [phone] Social History Tobacco Use Types Packs/Day Years Used Date Smoking Tobacco: Former Smokeless Tobacco: Never Alcohol Use Standard Drinks/Week Comments Yes 0 (1 standard drink = 0.6 oz pure alcoho l) 20 drinks weekly Alcohol Habits Answer Date Recorded How often do you have a drink containing 4 or more times a w [place] 03/15/2021 alcohol? How many drinks containing alcohol [...] or relatives? How often do you attend protestant or anglican Never 03/15/2021 services? Do you belong to any clubs or organizations Yes 03/15/2021 such as protestant groups, unions, fraternal or athletic groups, or [...] place to sleep or slept in a correction (including now)? Education Answer Date Recorded What is the highest level of school Master's degree (e.g., Hammad [place], MS, 03/14/2021 you have completed or the highest Shubham, MEd, STILL CLEANER, LAURA) degree you have received? Sex Assigned at Date Recorded Not on file documented as of this encounter Plan of Treatment Not on filedocumented as of this encounter Visit Diagnoses Not on filedocumented in this encounter Care Teams Muck Miner Relationship Specialty Start Date End Date Rody Washburn APRN, C.N.P., D.N.P . PCP - General 05/07/19 [address] [place] [address] documented as of this encounter
--- OUTSIDE RECORDS SUMMARY | 2022-08-06 21:06 | XMS_ITS | Encounter Summary ---
:[address] [facility] Address [address] [place] [address] Care Team Providers Name Role Phone Rody Washburn APRN, C.N.P., D.N.P. Primary Care [facility] Reason for Visit Reason Comments Med Refill Encounter Details Date Type Department Care Team Description 08/23/2021 Refill Department of [facility] Rody Washburn APRN, Med Refill Medicine, [facility], C.N. P., D.N.P. in [facility] [address] [facility] [address] [place] [address] [place] [phone] [phone] Social History Tobacco Use Types Packs/Day Years Used Date Smoking Tobacco: Former Smokeless Tobacco: Never Alcohol Use Standard Drinks/Week Comments Yes 0 (1 standard drink = 0.6 oz pure alcoho l) 20 drinks weekly Alcohol Habits Answer Date Recorded How often do you have a drink containing 4 or more times a w [place] 03/15/2021 alcohol? How many drinks containing alcohol [...] or relatives? How often do you attend uatsdin or pentecostal Never 03/15/2021 services? Do you belong to any clubs or organizations Yes 03/15/2021 such as uatsdin groups, unions, fraternal or athletic groups, or [...] have completed or the highest Shubham, MEd, MANAGER STATISTICAL PROGRAMMING, LAURA) degree you have received? Sex Assigned at Date Recorded Not on file documented as of this encounter Plan of Treatment Not on filedocumented as of this encounter Visit Diagnoses Not on filedocumented in this encounter Care Teams Ethics Instructor Relationship Specialty Start Date End Date Rody Washburn APRN, C.N.P., D.N.P . PCP - General 05/07/19 [address] [place] [address] documented as of this encounter
--- OUTSIDE RECORDS SUMMARY | 2022-08-06 21:06 | XMS_ITS | Encounter Summary ---
:1985 Author Organization [facility] Address [address] [place] [address] Care Team Providers Name Role Phone Rody Washburn APRN C.N.PAlice, D.N.P. Primary Care Provid Encounter Details Date Type Department Care Team Description 06/15/2021 Clinical Communication Department of [facility], Merritt Cueva APRN C.N.Sen, Building, in D.N.P. [place], [place] [address] [facility] [address] [place] [phone] Social History Tobacco Use Types Packs/Day Years Used Date Smoking Tobacco: Former Smokeless Tobacco: Never Alcohol Use Standard Drinks/Week Comments Yes 0 (1 standard drink = 0.6 oz pure alcoho l) 20 drinks weekly Alcohol Habits Answer Date Recorded How often do you have a drink containing 4 or more times a w [place] 03/15/2021 alcohol? How many drinks containing alcohol [...] or relatives? How often do you attend druze or evangelical Never 03/15/2021 services? Do you belong to any clubs or organizations Yes 03/15/2021 such as druze groups, unions, fraternal or athletic groups, or [...] place to sleep or slept in a intermediate (including now)? Education Answer Date Recorded What is the highest level of school Master's degree (e.g., M A, MS, 03/14/2021 you have completed or the highest Shubham, MEd, WIRE STRANDER, LAURA) degree you have received? Sex Assigned at Date Recorded Not on file documented as of this encounter Miscellaneous Notes Telephone Encounter - Vanda Cote - 06/15/2021 9:35 AM CDT Chino Jc has put in a request for you to schedule an office visit for your ED follow up, with an expected completion date around 06/17. To secure an appointment, please respond with your appointment time preferences (e.g. day of week, time of day, etc.) that would be close to the expected date that was requested. You can also reach us at your clinic appointment line if you would prefer to schedule this over the phone between 7 am-6 pm, Friday-Friday. [place]: [phone] [place]: [phone] [place]: [phone] [place]: [phone] [place]: [phone] [place]: [phone] [place] or [facility]: [phone] [place], [place], or [facility]: [phone] [place]:[phone] [place]: [phone] Thank you for trusting your health care to [facility]. documented in this encounter Plan of Treatment Not on filedocumented as of this encounter Visit Diagnoses Not on filedocumented in this encounter Care Teams Veterinary Radiologist Relationship Specialty Start Date End Date Rody Washburn APRN, C.N.P., D.N.P . PCP - General 05/07/19 [address] [place] [address] documented as of this encounter
--- OUTSIDE RECORDS SUMMARY | 2022-08-06 21:06 | XMS_ITS | Encounter Summary ---
:1985 Author Organization [facility] Address [address] [place] [address] Care Team Providers Name Role Phone Rody Washburn APRN C.N.P., D.N.P. Primary Care Provid er Encounter Details Date Type Department Care Team Description 06/04/2021 Hospital Encounter Department of Karina Tian Pain Foot Left Radiology, Merritt Shukla APRN, C.NMauro, Building, in D.N.P. [place], [place] [address] [facility] [address] [place] [phone] Social History Tobacco Use Types Packs/Day Years Used Date Smoking Tobacco: Former Smokeless Tobacco: Never Alcohol Use Standard Drinks/Week Comments Yes 0 (1 standard drink = 0.6 oz pure alcoho l) 20 drinks weekly Alcohol Habits Answer Date Recorded How often do you have a drink containing 4 or more times a w [place] 03/15/2021 alcohol? How many drinks containing alcohol [...] or relatives? How often do you attend religious or faith Never 03/15/2021 services? Do you belong to any clubs or organizations Yes 03/15/2021 such as religious groups, unions, fraternal or athletic groups, or [...] place to sleep or slept in a skilled nursing (including now)? Education Answer Date Recorded What is the highest level of school Master's degree (e.g., M [place], MS, 03/14/2021 you have completed or the highest Shubham, MEd, SLICE CUTTING MACHINE OPERATOR HELPER, LAURA) degree you have received? Sex Assigned at Date Recorded Not on file documented as of this encounter Medications at Time of Discharge [...] mouth daily. documented as of this encounter Plan of Treatment Not on filedocumented as of this encounter Procedures Procedure Name Priority Date/Time Associated Comments Diagnosis DX FOOT LEFT 3+ RAD - Routine 06/04/2021 8:54 Pain Foot Left Result s for this VIEWS (most inpatients AM CDT procedure a re in and all the results outpatients) section. documented in this encounter Results DX [...] planus . Left foot is otherwise negative. Adithya Beaslye APRN.N.P., D.N.P. IMG DIAGNOSTIC IMAGING PROCEDURES documented in this encounter Visit Diagnoses Diagnosis Pain Foot Left documented in this encounter Care Teams Master Fire Control Technician Relationship Specialty Start Date End Date Rody Washburn APRN, C.N.P., D.N.P . PCP - General 05/07/19 [address] [place] [address] documented as of this encounter
--- OUTSIDE RECORDS SUMMARY | 2022-08-06 21:07 | XMS_ITS | Encounter Summary ---
:1985 Author Organization [facility] Address [address] [place] [address] Care Team Providers Name Role Phone Unavailable Primary Care Provider Unavailable Encounter Details Date Type Department Care Team Description 07/05/2014 Hospital Encounter HX NO MAPPING Social History Tobacco Use Types Packs/Day Years Used Date Smoking Tobacco: Never Assessed Alcohol Habits Answer Date Recorded How often do you have a drink containing 4 or more times a w [place] 03/15/2021 alcohol? How many drinks containing alcohol [...] or relatives? How often do you attend anglican or mu-ism Never 03/15/2021 services? Do you belong to any clubs or organizations Yes 03/15/2021 such as anglican groups, unions, fraternal or athletic groups, or [...] minutes do you engage in exercise at is 60 min 03/15/2021 level? Stress Answer [...] place to sleep or slept in a penitentiary (including now)? Sex Assigned at Date Recorded Not on file documented as of this encounter Plan of Treatment Not on filedocumented as of this encounter Visit Diagnoses Not on filedocumented in this encounter
--- OUTSIDE RECORDS SUMMARY | 2022-08-06 21:07 | XMS_ITS | Encounter Summary ---
:1985 Author Organization [facility] Address [address] [place] [address] Care Team Providers Name Role Phone Unavailable Primary Care Provider Unavailable Encounter Details Date Type Department Care Team Description 07/05/2014 Hospital Encounter HX NO MAPPING Social History Tobacco Use Types Packs/Day Years Used Date Smoking Tobacco: Never Assessed Alcohol Habits Answer Date Recorded How often do you have a drink containing 4 or more times a w [place] 03/15/2021 alcohol? How many drinks containing alcohol [...] How often do you attend holiness or sikhism Never 03/15/2021 services? Do you belong to [...] or slept in a custodial (including now)? Sex Assigned at Date Recorded Not on file documented as of this encounter Plan of Treatment Not on filedocumented as of this encounter Visit Diagnoses Not on filedocumented in this encounter
--- OUTSIDE RECORDS SUMMARY | 2022-08-06 21:07 | XMS_ITS | Encounter Summary ---
:1985 Author Organization [facility] Address [address] [place] [address] Care Team Providers Name Role Phone Rody Washburn APRN, C.N.P., D.N.P. Primary Care Provid er Reason for Visit Reason Comments Knee Pain Ankle Pain Encounter Details Date Type Department Care Team Description 02/08/2020 Emergency [facility] Estephanie Delgado APRN, C.N.P. [address] [place] [address] Pain Knee Right Department Scott Miles, P.A.-CAlice [address] [place] [phone] (Primary Dx) [address] [place] [phone] Social History Tobacco Use Types Packs/Day Years Used Date Smoking Tobacco: Former Smokeless Tobacco: Never Alcohol Use Standard Drinks/Week Comments Yes 0 (1 standard drink = 0.6 oz pure alcoho l) 20 drinks weekly Alcohol Habits Answer Date Recorded How often do you have a drink containing 4 or more times a w [place] 03/15/2021 alcohol? How many drinks containing alcohol [...] or relatives? How often do you attend lutheran or islam Never 03/15/2021 services? Do you belong to any clubs or organizations Yes 03/15/2021 such as lutheran groups, unions, fraternal or athletic groups, or [...] or slept in a half-way (including now)? Sex Assigned at Date Recorded Not on file documented as of this encounter Last Filed Vital Signs Vital Sign Reading Time Taken Comments Blood Pressure 119/78 02/08/2020 4:30 PM CDT Pulse 51 02/08/2020 4:30 PM CDT Temperature 36.3 ??C (97.3 ??F) 02/08/2020 4:22 PM CDT Respiratory Rate 16 02/08/2020 4:22 PM CDT Oxygen Saturation 96% 02/08/2020 4:30 PM CDT Inhaled Oxygen Concentration - - Weight 101 kg (222 lb 10.6 oz) 02/08/2020 4:14 PM CDT Height 172.7 cm (5' 8) 02/08/2020 4:14 PM CDT Body Mass Index 33.86 02/08/2020 4:14 PM CDT documented in this encounter Discharge Instructions Discharge InstructionsScott Miles P.A.-C. - 02/08/2020 4:46 PM CDT Tylenol 500 - 1000 mg every 8 hours as needed for pain. Ibuprofen 400 - 600 mg every 8 hours as needed for pain. Please take with food. Do not exceed 3000 mg of Tylenol daily. Patient education handouts Follow-up with Orthopedics Return to Emergency Department for any new or worsening symptoms as discussed in addition to following up with primary care as directed. AttachmentsThe following attachments cannot be sent through Care Everywhere. Acute Knee Pain Adult Kogq-xj-Ofst (Malaysian)RICE Therapy for Routine Care of Injuries Ayjz-cs-Lpen (Malaysian)documented in this encounter Medications at Time of Discharge Medication Sig Dispensed Refills Start Date End Date diphenhydrAMINE-acetami Take 1 tablet by mouth 0 08/24/2017 nophen (TYLENOL PM at bedtime as needed. EXTRA STRENGTH) 25-500 sleep, do not take mg per tablet more than 4 grams total of acetomenophen from all sources acetaminophen (TYLENOL) Take 2 tablets by 0 08/2403/15/2021 500 mg tablet mouth every 6 (six) hours as needed. for pain; Can purchase over the counter; Maximum acetaminophen should not exceed 4,000 mg in 24 hours from all sources. ibuprofen Take 2-4 tablets by 0 08/25/201703/15 (ADVIL,MOTRIN) 200 mg mouth daily as needed. tablet pain, held for surgery, ok to resume 10/07/2016 omeprazole (PriLOSEC) Take 1 capsule by 0 017 09/21/2020 20 mg capsule mouth daily. documented as of this encounter ED Notes Jhon Delgado APRN, C.N.P. - 02/08/2020 4:59 PM CDT I have personally seen and examined this patient. I have fully participated in the care of this patient. I have reviewed all clinical information including history, physical exam, orders, and plan. I agree with the note of the MEDICAL OFFICE SPECIALIST/PA. Right knee pain without red flag findings. XR completed. Will refer to ortho. Pain control, return, etc discussed. Final Diagnoses: as of Feb 07 1734 Pain Knee Right - Concern for meniscal injury Jhon Delgado APRN, C.N.P. 02/08/201733 Scott Miles P.A.Sarita. - 02/08/2020 4:22 PM CDT SUBJECTIVE CHIEF COMPLAINT/REASON FOR VISIT Knee Pain and Ankle Pain HISTORY OF PRESENT ILLNESS Jhon Banegas is a 34 y.o. male presents to [facility] ED requesting evaluation for knee pain. No significant past medical history. Patient explains that he just returned from [place] - he is currently in the - and specifically wants a note that he has had multiple COVID-19 tests and has no respiratory symptoms or any concern for COVID-19 exposure. Notes he is presenting for evaluation of his right knee which she had a base provider look at his knee and had an x-ray performed over in [place] in late January which was noted to be unremarkable. Noteshis pain is been present for approximately 2 weeks and is most noticeable after he finishes a run due to the patient being a frequent an active runner. Explains that he took an approximate 5 day break from running and had almost complete resolution of his pain however after a 2 mi run today when he finished he had extreme pain in his right knee and some radiation down in to his right ankle for which prompted him for emergency evaluation. Denies any falls onto his right knee or any significant trauma. Denies any hip pain. Denies any previous surgeries or scopes on his right knee. Does note he has had some mild edema on his right knee with compared to his left knee. No fevers. No erythema. Patient is not immunocompromised. History provided by: Patient and medical records station mechanic needed/used: no REVIEW OF SYSTEMS Constitutional: Negative for fever. Respiratory: Negative for shortness of breath. Cardiovascular: Negative for chest pain. Gastrointestinal: Negative for abdominal pain and vomiting. Musculoskeletal: Positive for extremity pain (Right knee). Neurological: Negative for headaches. OBJECTIVE Initial Vitals [02/08/20 1622] Temperature Pulse Rate Heart Rate Resp Rate Blood Pressure SpO2 36.3 ??C (!) 48 -- 16 130/89 95 % Pain Score 9 PHYSICAL EXAMINATION Constitutional: Nursing note and vitals reviewed. He appears not lethargic. No distress. HENT: Head: Normocephalic and atraumatic. Mouth/Throat: Mucous membranes are moist. Eyes: Conjunctivae and EOM are normal. Pupils are equal, round, and reactive to light. Extraocular Movements: EOM normal. Cardiovascular: Normal rate. Capillary refill: takes less than 3 seconds, Edema: no edema noted Negative Homans Pulmonary/Chest: Effort normal. No tachypnea. No respiratory distress. Musculoskeletal: Normal range of motion. No deformity. Comments: Negative anterior and posterior drawer bilaterally Negative for increased laxity of collateral ligaments of knees bilaterally Negative Sasha's test Distal circulation intact noting 2+ dorsalis pedis and posterior tibial pulses with distal capillaryrefill less than 2 seconds Strength and sensory intact upper and lower extremities bilaterally Neurological: He is alert and oriented to person, place, and time. He is not disoriented. He exhibits normal muscle tone. Coordination normal. Skin: Skin is warm, dry and normal color. He is not diaphoretic. Psychiatric: He has a normal mood and affect. His behavior is normal. ASSESSMENT/PLAN Impression and Plan The patient presents to the ED for evaluation of knee pain. ?? DISPOSITION: After considering the HPI, physical exam, diagnostic evaluation my clinical impression is pain knee right - concern for meniscal injury. Patient is awake, alert, oriented and appropriate to questions who is nontoxic or ill-appearing. Initial presentation to ED notable for an afebrile 34-year-old male with vital signs notable for asymptomatic sinus bradycardia to 48. See HPI for more details. All life threatening and critical diagnoses considered. Secondary to knee pain x2 weeks in the absence of any systemic signs of infection and no concern for septic joint or deep vein thrombosis a shared decision making discussion was had with patient when moving forward with x-ray evaluation to rule out acute fracture. I reviewed previous medical records including documentation from previous visits. I personally reviewed the radiology image(s) and reviewed the radiology report(s). The Radiology exam interpretation(s) is/are normal. ED Course as of Feb 07 1659 Tue February 08, [id number] IMPRESSION: Trace right knee joint effusion or synovitis. Right knee otherwise negative. DX Knee Right 4+ Views 1654 Updated patient with results of any x-ray showing negative for acute fractures. Noted that his story is consistent with possible meniscal injury and that he may benefit from MRI imaging and follow-up with Orthopedics. Patient showed verbal understanding. Referral placed orthopedics. Pain management discussed with patient and will proceed with ttqm-bai-asetwpj management includingboth Tylenol and ibuprofen in addition to conservative therapies including rest, ice, compression and elevation. I encourage follow up with their primary care provider as indicated. I also encourage to return emergency department for worsening symptoms or any other concerns that they feels requires further evaluation. This plan of discharge and follow-up including all test results was discussed in detail with opportunity to ask questions during discharge process. At this time there no further questions regarding this plan and discussion. I will discharge them home in stable condition. Final Diagnoses: as of Feb 07 1659 Pain Knee Right - Concern for meniscal injury Scott Miles P.A.-C. 02/08/201658 Alyssa Meadows R.N. - 02/08/2020 4:14 PM CDT 34 year old male admit to ED with complaints of right knee pain that started about 2 weeks ago. Alyssa Meadows R.N. 02/08/20 1615 documented in this encounter Plan of Treatment Not on filedocumented as of this encounter Procedures Procedure Name Priority Date/Time Associated Comments Diagnosis DX KNEE RIGHT 4+ RAD - Semiurgent 02/08/2020 4:43 Resu lts for this VIEWS (Fast; most ED PM CDT procedure are in patients; some the results inpatients) section. documented in this encounter Results DX Knee Right 4+ Views (02/08/2020 4:43 PM CDT) Anatomical Region Laterality Modality Lower Extremity, Knee, Musculoskeletal RST LOS, Right Digital Radiography Musculoskeletal ARZ LOS, Muskuloskeletal FLA LOS Specimen (Source) Anatomical Collection Method Collection Time Re ceived Time Location / / Volume Laterality 02/08/2020 4:45 PM CDT Impressions 02/08/2020 4:46 PM CDT Trace right knee joint effusion or synovitis. Right knee otherwise negative. Narrative 02/08/2020 4:46 PM CDT EXAM: DX KNEE RIGHT 4+ VIEWS Procedure Note Dustin Myers M.D. - 02/08/2020For matting of this note might be different from the original. EXAM: DX KNEE RIGHT 4+ VIEWS IMPRESSION: Trace right knee joint effusion or synov itis. Right knee otherwise negative. Scott Miles P.A.-C. IMBob DIAGNOSTIC IMAGING PROCE GONZALO documented in this encounter Visit Diagnoses Diagnosis Pain Knee Right - Primary documented in this encounter Care Teams Welfare Service Aide Relationship Specialty Start Date End Date Rody Washburn APRN, C.N.P., D.N.P . PCP - General 05/07/19 [address] [place] [phone] documented as of this encounter
--- OUTSIDE RECORDS SUMMARY | 2022-08-06 21:07 | XMS_ITS | Encounter Summary ---
:1985 Author Organization [facility] Address [address] [place] [address] Care Team Providers Name Role Phone Rody Washburn APRN, C.N.P., D.N.P. Primary Care Provid er Encounter Details Date Type Department Care Team Description 02/14/2020 Clinical Communication Department of Presched[facility], Orthopedic Surgery in [place], [place] [address] [place] [phone] Social History Tobacco Use Types Packs/Day Years Used Date Smoking Tobacco: Former Smokeless Tobacco: Never Alcohol Use Standard Drinks/Week Comments Yes 0 (1 standard drink = 0.6 oz pure alcoho l) 20 drinks weekly Alcohol Habits Answer Date Recorded How often do you have a drink containing 4 or more times a w [place] 03/15/2021 alcohol? How many drinks containing alcohol [...] or relatives? How often do you attend synagogue or moravian Never 03/15/2021 services? Do you belong to any clubs or organizations Yes 03/15/2021 such as synagogue groups, unions, fraternal or athletic groups, or [...] place to sleep or slept in a m[facility] (including now)? Sex Assigned at Date Recorded Not on file documented as of this encounter Plan of Treatment Not on filedocumented as of this encounter Visit Diagnoses Not on filedocumented in this encounter Care Teams Motorcycle Mechanic Relationship Specialty Start Date End Date Rody Washburn APRN, C.N.P., D.N.P . PCP - General 05/07/19 [address] [place] [address] documented as of this encounter
--- OUTSIDE RECORDS SUMMARY | 2022-08-06 21:07 | XMS_ITS | Encounter Summary ---
:1985 Author Organization [facility] Address [address] [place] [id number] Care Team Providers Name Role Phone Rody Washburn APRN C.N.PAlice, D.N.P. Primary Care Provid Reason for Referral Outpatient (Routine) - Closed Specialty Diagnoses / Procedures Referred By Contact Refer red To Contact Family Medicine Diagnoses Tendonitis Peroneal Left Karina Tian V.[facility] Adithya LEDESMA.N.PAlice, D.N.P. [address] [place] [phone] Referral ID Status Reason Start Date Expiration Date Visits Requ ested Visits Authorized [id number] Closed 05/22/2021 05/22/2022 1 1 Reason for Visit Reason Comments Other Appointment Request (Routine) - Closed Specialty Diagnoses / Procedures Referred By Contact Refer red To Contact Family Medicine Referral ID Status Reason Start Date Expiration Date Visits Requ ested Visits Authorized [id number] Closed 05/21/2021 05/21/2022 1 1 Encounter Details Date Type Department Care Team Description 05/22/2021 Office Visit Department of Karina Shaikh Tend onitis Peroneal Medicine, Merritt Shukla APRN C.N.PAlice, Left (Primary Dx) Building, in [place], [place] [address] [place] [address] [place] [phone] Social History Tobacco Use Types Packs/Day Years [...] How often do you attend druze or latter day Never 03/15/2021 services? Do you belong to [...] place to sleep or slept in a [facility] (including now)? Education Answer Date Recorded What is the highest level of school Master's degree (e.g., M A, MS, 03/14/2021 you have completed or the highest Shubham, MEd, WASHERY ENGINEER, LAURA) degree you have received? Sex Assigned at Date Recorded Not on file documented as of this encounter Last Filed Vital Signs Vital Sign Reading Time Taken Comments Blood Pressure 145/74 05/22/2021 1:10 PM average of 3 CDT Pulse 60 05/22/2021 1:10 PM CDT Temperature - - Respiratory Rate - - Oxygen Saturation - - Inhaled Oxygen Concentration - - Weight 102 kg (225 lb 1.4 oz) 05/22/2021 1:10 PM CDT Height - - Body Mass Index 33.34 03/15/2021 10:53 AM CDT documented in this encounter Progress Notes Lenny Yang L.P.N. - 05/22/2021 1:30 PM CDT The patient was fitted with a long Walker brace (boot) size large. The patient/caregiver was instructed on how to apply the device and how to increase/decrease the air cells in the device. The patient was encouraged to wear a sock for comfort as well as the proper height/style of shoes to wear on the non-involved foot. The patient/caregiver was able to demonstrate proper application/adjustment of theAircast-AirSelect Walker. Vendor-produced educational materials were provided to the patient. Patient was allowed to walk around room and encouraged to take his time walking. He was given the option of also using crutches to help with walking. He denies that there is enough pain to proceed with crutches. Karina Tian V., BALTAZAR, C.N.P., D.N.P. - 05/22/2021 1:30 PM CDT CHIEF COMPLAINT / REASON FOR VISIT Jhon Banegas is a 35 y.o. male presenting today for evaluation of Other SUBJECTIVE HISTORY OF PRESENT ILLNESS #1 Tendonitis Peroneal Left This is a 35-year-old male who is here for left foot pain, with insidious onset, about May 10, 12 days ago, while he was out of town on two weeks of service. 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 He had no known trauma, though he was on his feet more and using different footwear. He was seenin the emergency department in [place], at an outside facility, where an x-ray was performed, and showed no bony abnormalities. He was discharged with naproxen by mouth 500 mg twice daily, which helped the pain initially. Pain is 7/10, located lateral left foot and is worse when 1st rising in the morning and rising from a seated position to walk. He has been limping. He otherwise feels well and afebrile. Medical history significant for remote hand fracture which sounds like it was traumatic. The following portions of the patient???s history were reviewed and updated as appropriate: allergies, current medications, family history, medical history, social history, surgical history and problemlist. OBJECTIVE PHYSICAL EXAM GENERAL APPEARANCE: Well developed, well nourished male in no acute distress. Gait is antalgic. SKIN: No skin eruptions over the area of concern of the left foot. EXTREMITIES: Left foot compared to unaffected right foot. The foot and ankle are neurovascularly intact. He is able to fully actively range his left foot and ankle, with increased pain on eversion and inversion of the ankle as well as standing on tiptoes. He does have some weakness on tiptoe on the left. Arches are intact. Pain is elicited over left lateral foot and extending slightly to the plantar surface. When I palpate the 5th metatarsal in particular there is no focal tenderness there. There isalso no lateral malleolus tenderness. Other than noted above, normal sensation. BP 145/74 (BP Location: Left arm, Patient Position: Sitting, Cuff Size: Regular) Comment: average of3 Pulse 60 Wt 102 kg BMI 33.34 kg/m?? ASSESSMENT / PLAN #1 Tendonitis Peroneal Left - Family Medicine office visit (clinic); Future; Expected date: 06/05/2021 I do not think additional imaging would be helpful at this time. He was placed in a long walking boot for at least 2 weeks, at which time he will return for repeat evaluation, considering the need for physical therapy at that time. If he has worsening or having no improvement at the return visit, one could consider additional imaging such as ultrasound. He declined a refill of naproxen, electing instead to use his home supply. He should rest ice and elevate his lower extremity and use the boot at all times of day and night except for when showering. documented in this encounter Plan of Treatment Scheduled Referrals Name Type Priority Associated Diagnoses Order S [facility] Medicine Outpatient Referral Routine Tendonitis Peronea l Expected: office visit Left 06/05/2021 (clinic) (Approximate), Expires: 05/22/2024 documented as of this encounter Visit Diagnoses Diagnosis Tendonitis Peroneal Left - Primary documented in this encounter Care Teams Hose Sprayer Relationship Specialty Start Date End Date Rody Washburn APRN, C.N.P., D.N.P . PCP - General 05/07/19 [address] [place] [address] documented as of this encounter
--- OUTSIDE RECORDS SUMMARY | 2022-08-06 21:07 | XMS_ITS | Encounter Summary ---
:1985 Author Organization [facility] Address [address] [place] [address] Care Team Providers Name Role Phone Unavailable Primary Care Provider Unavailable Encounter Details Date Type Department Care Team Description 12/17/2012 Hospital Encounter HX NO MAPPING Social History Tobacco Use Types Packs/Day Years Used Date Smoking Tobacco: Never Assessed Alcohol Habits Answer Date Recorded How often do you have a drink containing 4 or more times a w [place] 03/15/2021 alcohol? How many drinks containing alcohol [...] or relatives? How often do you attend quaker or confucianism Never 03/15/2021 services? Do you belong to any clubs or organizations Yes 03/15/2021 such as quaker groups, unions, fraternal or athletic groups, or [...] or slept in a jail (including now)? Sex Assigned at Date Recorded Not on file documented as of this encounter Plan of Treatment Not on filedocumented as of this encounter Visit Diagnoses Not on filedocumented in this encounter
--- OUTSIDE RECORDS SUMMARY | 2022-08-06 21:07 | XMS_ITS | Encounter Summary ---
:1985 Author Organization [facility] Address [address] [place] [address] Care Team Providers Name Role Phone Rabia Aquino P.A.-C., M.S., M.P.A. Primary Care Provider Unavailable Encounter Details Date Type Department Care Team Description 02/19/2018 Abstract DATA ABSTRACTION Provider, Historical Social History Tobacco Use Types Packs/Day Years Used Date Smoking Tobacco: Former Alcohol Habits Answer Date Recorded How often do you have a drink containing 4 or more times a w [place] 03/15/2021 alcohol? How many drinks containing alcohol [...] or relatives? How often do you attend orthodoxy or judaism Never 03/15/2021 services? Do you belong to any clubs or organizations Yes 03/15/2021 such as orthodoxy groups, unions, fraternal or athletic groups, or [...] place to sleep or slept in a snf (including now)? Sex Assigned at Date Recorded Not on file documented as of this encounter Plan of Treatment Not on filedocumented as of this encounter Visit Diagnoses Not on filedocumented in this encounter Care Teams Air Brake Rigger Relationship Specialty Start Date End Date Rabia Aquino P.A.-C., M.S., PCP - General Internal Medicine 12/0405/06/19 Carol. documented as of this encounter
--- OUTSIDE RECORDS SUMMARY | 2022-08-06 21:07 | XMS_ITS | Encounter Summary ---
:1985 Author Organization [facility] Address [address] [place] [address] Care Team Providers Name Role Phone Unavailable Primary Care Provider Unavailable Encounter Details Date Type Department Care Team Description 07/05/2014 Hospital Encounter HX NO MAPPING Social History Tobacco Use Types Packs/Day Years Used Date Smoking Tobacco: Never Assessed Alcohol Habits Answer Date Recorded How often do you have a drink containing 4 or more times a w m[employer] ig[place] 03/15/2021 alcohol? How many drinks containing alcohol [...] or relatives? How often do you attend hinduism or scientology Never 03/15/2021 services? Do you belong to any clubs or organizations Yes 03/15/2021 such as hinduism groups, unions, fraternal or athletic groups, or [...] or slept in a [facility] (including now)? Sex Assigned at Date Recorded Not on file documented as of this encounter Plan of Treatment Not on filedocumented as of this encounter Visit Diagnoses Not on filedocumented in this encounter
--- OUTSIDE RECORDS SUMMARY | 2022-08-06 21:07 | XMS_ITS | Encounter Summary ---
:[address] [facility] Address [address] [place] [address] Care Team Providers Name Role Phone Rody Washburn APRN, C.N.P., D.N.P. Primary Care Provid Reason for Visit Reason Comments Pre-visit Testing Orders Encounter Details Date Type Department Care Team Description 02/18/2020 Clinical Department of Gabby White Pre-visit Manju hope Communication Orthopedic Surgery Gwendolyn Cueva Orders in [address] [facility] [address] [place], [place] [phone] (Work) [phone] Social History Tobacco Use Types Packs/Day Years Used Date Smoking Tobacco: Former Smokeless Tobacco: Never Alcohol Use Standard Drinks/Week Comments Yes 0 (1 standard drink = 0.6 oz pure alcoho l) 20 drinks weekly Alcohol Habits Answer Date Recorded How often do you have a drink containing 4 or more times a w [place] 03/15/2021 alcohol? How many drinks containing alcohol [...] or relatives? How often do you attend scientologist or evangelical Never 03/15/2021 services? Do you belong to any clubs or organizations Yes 03/15/2021 such as scientologist groups, unions, fraternal or athletic groups, or [...] place to sleep or slept in a longterm (including now)? Sex Assigned at Date Recorded Not on file documented as of this encounter Miscellaneous Notes Telephone Encounter - Kavya Harrison - 02/18/2020 2:38 PM CDT Triage Comments: Gabby White M.D. 02/17/2020 4:39 PM CDT xrays needed: B 45 PA flexion WB views and B patellar axial views. PA or MD Recommend evaluation first, then determine if MRI is needed or not. Per triage note, please verify the orders and sign. I am not sure of the knee x- ray views wanted. Kavya Nugent documented in this encounter Plan of Treatment Not on filedocumented as of this encounter Visit Diagnoses Diagnosis Pain Knee Right - Primary documented in this encounter Care Teams Pigskin Trimmer Relationship Specialty Start Date End Date Rody Washburn APRN, C.N.P., D.N.P . PCP - General 05/07/19 [address] [place] [address] documented as of this encounter
--- OUTSIDE RECORDS SUMMARY | 2022-08-06 21:07 | XMS_ITS | Encounter Summary ---
:1985 Author Organization [facility] Address [address] [place] [address] Care Team Providers Name Role Phone Rody Washburn APRN, C.N.P., D.N.P. Primary Care Provid er Reason for Visit Reason Comments Sinusitis Encounter Details Date Type Department Care Team Description 04/11/2021 Nurse [facility] Sin[facility] Medicine, [facility], in [facility] jovita [address] [place] [address] Social History Tobacco Use Types Packs/Day Years Used Date Smoking Tobacco: Former Smokeless Tobacco: Never Alcohol Use Standard Drinks/Week Comments Yes 0 (1 standard drink = 0.6 oz pure alcoho l) 20 drinks weekly Alcohol Habits Answer Date Recorded How often do you have a drink containing 4 or more times a w [place] 03/15/2021 alcohol? How many drinks containing alcohol [...] or relatives? How often do you attend yazidism or amish Never 03/15/2021 services? Do you belong to any clubs or organizations Yes 03/15/2021 such as yazidism groups, unions, fraternal or athletic groups, or [...] place to sleep or slept in a group home (including now)? Education Answer Date Recorded What is the highest level of school Master's degree (e.g., M A, MS, 03/14/2021 you have completed or the highest Shubham, MEd, LOG CHECK SCALER, LAURA) degree you have received? Sex Assigned at Date Recorded Not on file documented as of this encounter Miscellaneous Notes Telephone Encounter - Macy Cleveland R.N. - 04/11/2021 10:58 AM CDT Chief Complaint / Reason for Call Patient is a 35 y.o. male calling regarding Sinusitis. Assessment Concern: Nasal congestion and feeling of fullness in the head/jaw. Drainage has been green in color.No cough or fever. Rating pain at 3/10. No difficulty breathing. Present for: A few weeks Home cares tried: Sinus sprays Calling to request: Advice The recommended disposition is See a health care provider within 3 days. Patient meets criteria for RN sinusitis protocol. Prescription sent to patient's preferred pharmacy.Advised to call back with any new or worsening symptoms, and patient verbalized understanding. Reason for Disposition ? ? [1] Sinus congestion (pressure, fullness) AND [2] present > 10 days Protocols used: SINUS PAIN OR [id number] Care Advice Patient/Caregiver understands and will follow care advice?: Yes, able to teach back SEE PCP WITHIN 3 DAYS: * You need to be seen within 2 or 3 days. Call your doctor (or EVP SALES/PA) during regular office hours and make an appointment. A clinic or urgent care center are good places to go for care if your doctor'soffice is closed or you can't get an appointment. NOTE: If office will be open tomorrow, tell callerto call then, not in 3 days. PAIN MEDICINES: * For pain relief, take acetaminophen, ibuprofen, or naproxen. * Use the lowest amount that makes your pain feel better. CALL BACK IF: * Difficulty breathing (and not relieved by cleaning out nose) * You become worse. CARE ADVICE given per Sinus Pain or Congestion (Adult) guideline. documented in this encounter Plan of Treatment Not on filedocumented as of this encounter Visit Diagnoses Not on filedocumented in this encounter Care Teams Fire Alarm Mechanic Relationship Specialty Start Date End Date Rody Washburn APRN, C.N.P., D.N.P . PCP - General 05/07/19 [address] [place] [address] documented as of this encounter
--- OUTSIDE RECORDS SUMMARY | 2022-08-06 21:07 | XMS_ITS | Encounter Summary ---
:1985 Author Organization [facility] Address [address] [place] [address] Care Team Providers Name Role Phone Rabia Aquino P.A.-C., M.Torey., M.P.A. Primary Care Provider Unavailable Encounter Details Date Type Department Care Team Description 08/25/2017 - Hospital Encounter HX RST UNIT 9-2 08/27/2017 ORTHOPEDICS Social History Tobacco Use Types Packs/Day Years Used Date Smoking Tobacco: Never Assessed Alcohol Habits Answer Date Recorded How often do you have a drink containing 4 or more times a w match-e-be-nash-she[place]wish band 03/15/2021 alcohol? How many drinks containing alcohol [...] or relatives? How often do you attend restorationism or pentecostal Never 03/15/2021 services? Do you belong to any clubs or organizations Yes 03/15/2021 such as restorationism groups, unions, fraternal or athletic groups, or [...] place to sleep or slept in a fdc (including now)? Sex Assigned at Date Recorded Not on file documented as of this encounter Last Filed Vital Signs Vital Sign Reading Time Taken Comments Blood Pressure 110/59 08/27/2017 10:43 NIBP - Value fr om AM COMMUNICATIONS EQUIPMENT OPERATOR Chartplus. Pulse 77 08/27/2017 10:45 Value from [facility] tplus. AM COMMUNICATIONS EQUIPMENT OPERATOR Temperature - - Respiratory Rate 16 08/27/2017 10:43 Value from [facility] rtplus. AM COMMUNICATIONS EQUIPMENT OPERATOR Oxygen Saturation - - Inhaled Oxygen - - Concentration Weight 99.8 kg (220 lb 0.3 08/25/2017 6:33 AM oz) COMMUNICATIONS EQUIPMENT OPERATOR Height 172.5 cm (5' 7.91) 08/25/2017 6:33 AM COMMUNICATIONS EQUIPMENT OPERATOR Body Mass Index 33.54 08/25/2017 6:33 AM COMMUNICATIONS EQUIPMENT OPERATOR documented in this encounter Medications at Time of [...] mg in 24 hours from all sources. aspirin 81 mg chewable Chew 1 tablet 2 (two) 0 02/08/2020 tablet times a day. Take for 6 weeks following surgery, stop date 10/06/2016 ibuprofen Take 2-4 tablets by 0 08/25/201703/15 (ADVIL,MOTRIN) 200 mg mouth daily as needed. tablet pain, held for surgery, ok to resume 10/07/2016 indomethacin (INDOCIN Take 1 capsule by 0 017 02/08/2020 SR) 75 mg ER capsule mouth daily. Take for a total of 7 day postoperatively, stop date 09/01/2017 omeprazole (PriLOSEC) Take 1 capsule by 0 017 09/21/2020 20 mg capsule mouth daily. oxyCODONE (ROXICODONE) Take 1-2 tablets by 0 08/0602/08/2020 5 mg immediate release mouth every 4 (four) tablet hours as needed. For pain not relieved by acetaminophen; take 1 tablet for pain 4-6/10 and 2 tablets for pain 7-10/10. sennosides-docusate Take 1 tablet by mouth 0 08/0602/08/2020 sodium (SENNA WITH 2 (two) times a day as DOCUSATE SODIUM) 8.6-50 needed. Use as needed mg per tablet for constipation while on narcotic pain medication; Can purchase over the counter. traMADol (ULTRAM) 50 mg Take 1 tablet by mouth 0 08/24/2017 02/08/2020 tablet every 6 (six) hours as needed. Pain not relieved by acetaminophen. documented as of this encounter Plan of Treatment Not on filedocumented as of this encounter Procedures Procedure Name Priority Date/Time Associated Comments Diagnosis ELECTROLYTE (CHEM 4) Routine 08/26/2017 3:49 AM R esults for this PANEL, S/P COMMUNICATIONS EQUIPMENT OPERATOR procedure are i n the results section. CBC WITHOUT Routine 08/26/2017 3:49 AM Results f or this DIFFERENTIAL, B COMMUNICATIONS EQUIPMENT OPERATOR procedure ar e in the results section. DX HIP RIGHT 2-3 Routine 08/25/2017 10:22 Results for this VIEWS AM COMMUNICATIONS EQUIPMENT OPERATOR procedure are i n the results section. FL FLUORO LESS THAN 1 Routine 08/25/2017 9:49 AM Results for this HOUR COMMUNICATIONS EQUIPMENT OPERATOR procedure are i n the results section. HXINTRA-OP AUTO TX Routine 08/25/2017 8:49 AM Res ults for this COMMUNICATIONS EQUIPMENT OPERATOR procedure are i n the results section. ABORH, RBC Routine 08/25/2017 7:09 AM Results f or this COMMUNICATIONS EQUIPMENT OPERATOR procedure are i n the results section. ANTIBODY SCREEN, B Routine 08/25/2017 7:09 AM Res ults for this COMMUNICATIONS EQUIPMENT OPERATOR procedure are i n the results section. documented in this encounter Results Electrolyte (Chem 4) Panel (08/26/2017 3:49 AM COMMUNICATIONS EQUIPMENT OPERATOR) Analysis Performed At Patho logist Time Signature Chloride, S 98 98 - 107 [facility] MMOL/L [facility] HX Bicarbonate, 25 22 - 29 [facility] P/S MMOL/L [facility] eGFR-Black/Afri >60 >60 [facility] can Portuguese ML/MIN/BSA [facility] BUN (Blood Urea 13 8 - 24 [facility] Nitrogen), S MG/DL [facility]ATORIES - [facility] Sodium, S 137 135 - 145 [facility] MMOL/L [facility] - [facility] Potassium, S 4.5 3.6 - 5.2 [facility] MMOL/L [facility] - [facility] Creatinine 0.9 0.8 - 1.3 [facility] MG/DL [facility] - [facility] eGFR >60 >60 [facility] Non-Black/Afric ML/MIN/BSA LABORATORIES - an Portuguese [facility] Anion Gap 14 7 - 15 [facility]ATORIES - [facility] Glucose, S 128 70 - 140 [facility] MG/DL [facility] - [facility] Specimen Anatomical Collection Method Collection Time Receive d Time (Source) Location / / Volume Laterality 08/26/2017 3:49 AM 3:49 COMMUNICATIONS EQUIPMENT OPERATOR AM COMMUNICATIONS EQUIPMENT OPERATOR Aly Steel M.D. LAB BLOOD ADD-ON Performing Organization Address City/[facility]/RUST Code Phon e Number [facility] LABORATORIES - [address] [place] [phone] [facility] (ABNORMAL) CBC without Differential (08/26/2017 3:49 AM COMMUNICATIONS EQUIPMENT OPERATOR) [facility] gist Method Time Signature Hemoglobin 12.1 (L) 13.5 - [facility] 17.5 G/DL [facility] - [facility] Hematocrit 33.4 (L) 38.8 - [facility] 50.0 % LABORATORIES - [facility] RBC Distrib 11.7 (L) 11.8 - [facility] Width 15.6 % [facility] - [facility] Platelet Count 228 150 - 450 [facility] X10(9)/L [facility]ATORIES - [facility] Leukocytes 13.7 (H) 3.5 - [facility] 10.5 LABORATORIES - X10(9)/L [facility] Erythrocytes 3.89 (L) 4.32 - [facility] 5.72 LABORATORIES - X10(12)/L [facility] MCV 85.9 81.2 - [facility] 95.1 FL LABORATORIES - [facility] Specimen Anatomical Collection Method Collection Time Receive d Time (Source) Location / / Volume Laterality 08/26/2017 3:49 AM 7 3:49 COMMUNICATIONS EQUIPMENT OPERATOR AM COMMUNICATIONS EQUIPMENT OPERATOR Aly Steel M.D. LAB BLOOD ADD-ON Performing Organization Address City/[facility]/ZIP Code Phon e Number [facility] LABORATORIES - [address] [place], [place] [address] [facility] DX Hip Right 2-3 Views (08/25/2017 10:22 AM COMMUNICATIONS EQUIPMENT OPERATOR) Anatomical Region Laterality Modality Lower Extremity, Hip Right Radiographic Imagin g Specimen (Source) Anatomical Collection Method Collection Time Re ceived Time Location / / Volume Laterality 08/25/2017 10:22 AM COMMUNICATIONS EQUIPMENT OPERATOR Impressions 08/25/2017 10:24 AM COMMUNICATIONS EQUIPMENT OPERATOR Right periacetabular osteotomy. Negative for PO purposes. Electronically signed by: ?? Renita Covington MD [id number] 25-Aug-2017 10:24 Narrative 08/25/2017 10:24 AM COMMUNICATIONS EQUIPMENT OPERATOR 25-Aug-2017 10:22:00 ??Exam: Hip 2vw AP/Lat RT Indications: POST-OP. Dysplasia vs aceta bular retroversion, right hip carmen-osteotomy. ORIGINAL REPORT - 25-Aug-2017 10:24:00 EXAM: Right Hip 2vw AP/Lat: Procedure Note Tin Covington M.D. - 12/31/2017Form atting of this note might be different from the original. 25-Aug-2017 10:22:00 Exam: Hip 2vw AP/La t RT Indications: POST-OP. Dysplasia vs aceta bular retroversion, right hip carmen-osteotomy. ORIGINAL REPORT - 25-Aug-2017 10:24:00 EXAM: Right Hip 2vw AP/Lat: IMPRESSION: Right periacetabular osteoto my. Negative for PO purposes. Electronically signed by: Renita Covington MD [id number] 25-Aug-2017 10:24 Aly Steel M.D. [facility] Fluoro Less Than 1 Hour (08/25/2017 9:49 AM COMMUNICATIONS EQUIPMENT OPERATOR) Anatomical Region Laterality Modality Radiographic Imaging Specimen (Source) Anatomical Collection Method Collection Time Re ceived Time Location / / Volume Laterality 08/25/2017 9:49 AM COMMUNICATIONS EQUIPMENT OPERATOR Impressions 08/25/2017 9:50 AM COMMUNICATIONS EQUIPMENT OPERATOR Image intensifier used. Image(s) acquired. Electronically signed by: ?? Nawaf Damon MD ??[id number] 25-Aug-2017 09:50 Narrative 08/25/2017 9:50 AM COMMUNICATIONS EQUIPMENT OPERATOR 25-Aug-2017 09:49:00 ??Exam: Fluoro < 1hr MSK Indications: FLUORO. Dysplasia vs acetab ular retroversion, right hip carmen-osteotomy. ORIGINAL REPORT - 25-Aug-2017 09:50:00 EXAM: Fluoro < 1hr MSK: Procedure Note Dany Damon M.D. - 12/31/2017Formatt ing of this note might be different from the original. 25-Aug-2017 09:49:00 Exam: Fluoro < 1hr MSK Indications: FLUORO. Dysplasia vs acetab ular retroversion, right hip carmen-osteotomy. ORIGINAL REPORT - 25-Aug-2017 09:50:00 EXAM: Fluoro < 1hr MSK: IMPRESSION: Image intensifier used. Imag e(s) acquired. Electronically signed by: Nawaf Damon MD [id number] 25-Aug-2017 09:50 Aly Steel M.D. IMG FLUOROSCOPY PROCEDURES HX intra-Op Auto Tx (08/25/2017 8:49 AM COMMUNICATIONS EQUIPMENT OPERATOR) Analysis Performed At Patho logist Time Signature HXRBC # UNITS 0.52 [facility] TRANSFUSED [facility] HXRBC UNIT INFO RBC [facility] Comment: Component Type Intraoperative Salvaged R BC Unit Number =[id number] Issue Date/Time [id number] Specimen (Source) Anatomical Collection Method Collection Time Re ceived Time Location / / Volume Laterality 08/25/2017 8:49 AM COMMUNICATIONS EQUIPMENT OPERATOR Historical Provider LAB HISTORICAL ORDERS Performing Organization Address City/[facility] Phon e Number [facility] LABORATORIES - [address] [place] [phone] [facility] Antibody Screen, RBC (08/25/2017 7:09 AM COMMUNICATIONS EQUIPMENT OPERATOR) Patholo gist Method Time Signature Antibody Negative [facility] Screen [facility] Specimen (Source) Anatomical Collection Method Collection Time Re ceived Time Location / / Volume Laterality 08/25/2017 7:09 AM COMMUNICATIONS EQUIPMENT OPERATOR Historical Provider LAB BLOOD BANK TEST ORDERABL ES Performing Organization Address City/[facility] Phon e Number [facility] - [address] [place] [address] [facility] ABORh, RBC (08/25/2017 7:09 AM COMMUNICATIONS EQUIPMENT OPERATOR) P athologist Signature HXABO/RH BLOOD O Pos [facility] TYPE [facility] Specimen (Source) Anatomical Collection Method Collection Time Re ceived Time Location / / Volume Laterality 08/25/2017 7:09 AM COMMUNICATIONS EQUIPMENT OPERATOR Historical Provider LAB BLOOD BANK TEST ORDERABL ES Performing Organization Address City/State/ZIP Code Phon e Number [facility] LABORATORIES - [address] [place], [place] [address] [facility] documented in this encounter Visit Diagnoses Not on filedocumented in this encounter Care Teams Timber Repairer Relationship Specialty Start Date End Date Rabia Aquino P.A.-C., M.S., PCP - General Internal Medicine 12/0405/06/19 M.P.A. documented as of this encounter
--- OUTSIDE RECORDS SUMMARY | 2022-08-06 21:07 | XMS_ITS | Encounter Summary ---
:1985 Author Organization [facility] Address [address] [place] [address] Care Team Providers Name Role Phone Rody Washburn APRN, C.N.P., D.N.P. Primary Care Provid Reason for Visit Reason Comments Foot Pain Encounter Details Date Type Department Care Team Description 03/14/2021 Nurse Triage Department [facility] [address] [facility] [address] [place] [address] [place], [place] [phone] Social History Tobacco Use Types Packs/Day Years Used Date Smoking Tobacco: Former Smokeless Tobacco: Never Alcohol Use Standard Drinks/Week Comments Yes 0 (1 standard drink = 0.6 oz pure alcoho l) 20 drinks weekly Alcohol Habits Answer Date Recorded How often do you have a drink containing 4 or more times a w [place] 03/15/2021 alcohol? How many drinks containing alcohol [...] or relatives? How often do you attend judaism or cheondoism Never 03/15/2021 services? Do you belong to any clubs or organizations Yes 03/15/2021 such as judaism groups, unions, fraternal or athletic groups, or [...] place to sleep or slept in a usp (including now)? Education Answer Date Recorded What is the highest level of school Master's degree (e.g., M A, MS, 03/14/2021 you have completed or the highest Shubham, MEd, DEPUTY SHERIFF LIEUTENANT, LAURA) degree you have received? Sex Assigned at Date Recorded Not on file documented as of this encounter Miscellaneous Notes Telephone Encounter - Vandana Paz R.N. - 03/14/2021 9:35 AM CDT Chief Complaint / Reason for Call Patient is a 35 y.o. male calling regarding Foot Pain. Assessment Concern: Patient calls to report right foot pain which has flared up in the past 24 hours. He statesthat there is a discolored dime sized area on the ball of his foot causing him discomfort but only when direct pressure is applied. Present for: 1 month Home cares tried: Rest Calling to request: Appointment The recommended disposition is See a health care provider within 3 days. Reason for Disposition ? ? [1] MODERATE pain (e.g., interferes with normal activities, limping) AND [2] present > 3 days Protocols used: FOOT [id number] Care Advice Patient/Caregiver understands and will follow care advice?: Yes, able to teach back SEE PCP WITHIN 3 DAYS PAIN MEDICINES: * For pain relief, take acetaminophen, ibuprofen, or naproxen. * Use the lowest amount that makes your pain feel better. CALL BACK IF: * Fever occurs * You become worse. COVID-19 Nurse Line Screening ASSESSMENT Region Select appropriate region: : [place] Age Pathway Select approprite pathway: : Adult Have you had close contact* with a person who has a LABORATORY CONFIRMED case of COVID-19 in the past 14 days?: No (Continue Screening) In the last 48 hours, have you had a fever* OR symptoms that are unrelated to a preexisting illness?: No symptoms noted (Continue Screening) Have you tested positive for COVID-19 in the last 90 days?: No (Continue Screening) Have you been advised to undergo testing or are you requesting testing?: No, testing not recommended(End Screening) Testing Recommendation Endpoint Is testing recommended? : Not recommended to test PLAN Endpoint recommendation: Screening negative, testing not indicated at this time Care Points: -Wash hands frequently with soap and water for at least 20 seconds -If soap and water are not available, use a hand long wall mining machine helper -Avoid touching your eyes, nose and mouth. -Clean and disinfect high-touch surfaces routinely. -Wear a mask over your nose and mouth. A cloth face cover is not a substitute for social distancing -Continue to keep about 6 feet between yourself and others. -Avoid public areas and public transportation. -Find new ways to connect with family and friends, get support and share feelings. -Seek emergent care if any of the following occur Trouble breathing Bluish lips or face Persistent pain or pressure in the chest New confusion or inability to rouse. -Notify your regular care provider of any new or worsening symptoms. Asymptomatic without exposure Carepoints: Testing is not recommended at this time. If you become symptomatic, please call back for additional screening. Education: Patient/caregiver able to teach back Patient agreeable to plan of care: Yes The following references were used: [facility] novel coronavirus (COVID- 19) resources documented in this encounter Plan of Treatment Not on filedocumented as of this encounter Visit Diagnoses Not on filedocumented in this encounter Care Teams Company Doctor Relationship Specialty Start Date End Date Rody Washburn APRN, C.N.P., D.N.P . PCP - General 05/07/[address] [place] [address] documented as of this encounter
--- OUTSIDE RECORDS SUMMARY | 2022-08-06 21:07 | XMS_ITS | Encounter Summary ---
:1985 Author Organization [facility] Address [address] [place] [address] Care Team Providers Name Role Phone Unavailable Primary Care Provider Unavailable Encounter Details Date Type Department Care Team Description 03/14/2014 [facility] Tony Rod D.O., M.P.H. [address] [place] [phone] (Wo rk) Social History Tobacco Use Types Packs/Day Years Used Date Smoking Tobacco: Never Assessed Alcohol Habits Answer Date Recorded How often do you have a drink containing 4 or more times a w [place] 03/15/2021 alcohol? How many drinks containing alcohol [...] or relatives? How often do you attend yarsanism or anabaptist Never 03/15/2021 services? Do you belong to any clubs or organizations Yes 03/15/2021 such as yarsanism groups, unions, fraternal or athletic groups, or [...]
--- OUTSIDE RECORDS SUMMARY | 2022-08-06 21:07 | XMS_ITS | Encounter Summary ---
:1985 Author Organization [facility] Address [address] [place] [address] Care Team Providers Name Role Phone Unavailable Primary Care Provider Unavailable Encounter Details Date Type Department Care Team Description 12/02/2012 Hospital Encounter HX NO MAPPING Social History Tobacco Use Types Packs/Day Years Used Date Smoking Tobacco: Never Assessed Alcohol Habits Answer Date Recorded How often do you have a drink containing 4 or more times a w [place] 03/15/2021 alcohol? How many drinks containing alcohol [...] How often do you attend holiness or sabianism Never 03/15/2021 services? Do you belong to [...]
--- OUTSIDE RECORDS SUMMARY | 2022-08-06 21:07 | XMS_ITS | Encounter Summary ---
:1985 Author Organization [facility] Address [address] [place] [address] Care Team Providers Name Role Phone Unavailable Primary Care Provider Unavailable Encounter Details Date Type Department Care Team Description 07/05/2014 Hospital Encounter HX NO MAPPING Social History Tobacco Use Types Packs/Day Years Used Date Smoking Tobacco: Never Assessed Alcohol Habits Answer Date Recorded How often do you have a drink containing 4 or more times a w [place] 03/15/2021 alcohol? How many drinks containing alcohol [...] or relatives? How often do you attend zoroastrianism or confucianism Never 03/15/2021 services? Do you belong to any clubs or organizations Yes 03/15/2021 such as zoroastrianism groups, unions, fraternal or athletic groups, or [...] place to sleep or slept in a nursing home (including now)? Sex Assigned at Date Recorded Not on file documented as of this encounter Plan of Treatment Not on filedocumented as of this encounter Visit Diagnoses Not on filedocumented in this encounter
--- OUTSIDE RECORDS SUMMARY | 2022-08-06 21:07 | XMS_ITS | Encounter Summary ---
:1985 Author Organization [facility] Address [address] [place] [address] Care Team Providers Name Role Phone Rody Washburn APRN, C.N.Sen, D.N.P. Primary Care Provid Reason for Referral Outpatient (Routine) - Closed Specialty Diagnoses / Procedures Referred By Contact Refer red To Contact Sports Medicine Diagnoses [facility] LEDESMAN.Sen, D.N.P. [address] [place] [address] Referral ID Status Reason Start Date Expiration Date Visits Requ ested Visits Authorized [id number] Closed 03/15/2021 03/15/2022 1 1 Reason for Visit Reason Comments Foot Pain Right foot Appointment Request (Routine) - Closed Specialty Diagnoses / Procedures Referred By Contact Refer red To Contact Family Medicine Diagnoses [facility] Procedures Referral ID Status Reason Start Date Expiration Date Visits Requ ested Visits Authorized [id number] Closed 03/14/2021 03/14/2022 1 1 Encounter Details Date Type Department Care Team Description 03/15/2021 Office Visit Department of Rody Tomas in Foot Right Medicine, Merritt Cueva APRN, C.N.PAlice, ([facility] Building, in D.N.P. [place], [place] [address] [place] [address] [place] [phone] Social History Tobacco Use Types Packs/Day Years Used Date Smoking Tobacco: Former Smokeless Tobacco: Never Alcohol Use Standard Drinks/Week Comments Yes 0 (1 standard drink = 0.6 oz pure alcoho l) 20 drinks weekly Alcohol Habits Answer Date Recorded How often do you have a drink containing 4 or more times a w [place] 03/15/2021 alcohol? How many drinks containing alcohol [...] or relatives? How often do you attend latter-day or judaism Never 03/15/2021 services? Do you belong to any clubs or organizations Yes 03/15/2021 such as latter-day groups, unions, fraternal or athletic groups, or [...] have completed or the highest Shubham, MEd, ELECTROPHYSIOLOGY TECHNICIAN, LAURA) degree you have received? Sex Assigned at Date Recorded Not on file documented as of this encounter Last Filed Vital Signs Vital Sign Reading Time Taken Comments Blood Pressure 111/68 03/15/2021 10:53 AM CDT Pulse 48 03/15/2021 10:53 AM CDT Temperature - - Respiratory Rate - - Oxygen Saturation - - Inhaled Oxygen Concentration - - Weight 101 kg (222 lb 1.8 oz) 03/15/2021 10:53 AM CDT Height 175 cm (5' 8.9) 03/15/2021 10:53 AM CDT Body Mass Index 32.9 03/15/2021 10:53 AM CDT documented in this encounter Patient Instructions Patient InstructionsRody Washburn APRN, C.N.P., D.N.P. - 03/15/2021 11:00 AM CDT Images from the original note were not included. Patient Education Metatarsalgia Introduction Your feet are a firm but flexible foundation. If you are like the typical Serbian, you will take nearly 15,000 steps today -- walking about ynlv-xys-e-half miles. Over the span of your lifetime, you???ll walk enough to agdaagux the earth three times. Your feet must support you every step of the way. One of the most common problems that can slow you down is an ailment called metatarsalgia (met???-ah-tar-ruth???amber-ah). This pain can range from simply annoying to disabling. This booklet contains information about the common causes of metatarsalgia and steps you can take to help relieve the pain. Metatarsalgia The term metatarsalgia includes a group of foot disorders which share a common symptom -- pain in the front (ball) of the foot. The pain may feel as though you have efrain in your shoe, however, X-rays usually show nothing irregular. The ball of your foot may also become red and inflamed, and a callus may form on the skin under the head (end) of a metatarsal bone (see figure 1). Metatarsalgia has many causes; however, simple treatments usually bring about relief. To help you discover the source of your foot pain, it is important that you begin by understanding the structure ofyour foot. Structure of your foot Your foot is made of 26 bones, held together by tough, cord-like ligaments. As you walk, your tendons work the bones like levers, making movement possible. Tendons are cord-like structures that attach muscle to bone. In the middle of your foot are five long bones called the metatarsals (see figure 1).Each of these bones ends at the ball of your foot and has a narrow shaft and a knobby tip, similar to the knuckles in your hands. Hinge joints between the metatarsals and phalanges (bones in the toes) allow your toes to move up and down and, to a lesser extent, sideways. When you walk, the metatarsal bones bear the weight of your body as your foot pushes off the ground (see figure 2). If there is more pressure on the end of one bone, it presses on the skin beneath it. This causes pain and inflammation in the ball of the foot, or metatarsalgia. A callus, or thickening of the skin, may also form on the ball of the foot and swelling may occur. Common causes Metatarsalgia can affect people of all ages. However, it is most common in middle-aged and elderly women. Factors that increase your risk include: ?? Heredity -- A major function of the foot is to absorb shock. A flat foot or high-arched foot may prevent yourweight from being evenly distributed when you walk or run and focus stress on the balls of your feet. If you were born with either of these foot types or develop flat arches, metatarsalgia may result. In addition, metatarsals that are too long or too short can cause an uneven distribution of weight onyour feet. The result is stress on the balls of your feet. ?? Foot disorders -- Stress fractures and inflammatory arthritis (such as rheumatoid arthritis) can contribute to metatarsalgia. ?? Thinning of the fat pad -- The natural cushioning (fat pad) in the balls on the feet helps to absorb shock. As you age, thiscushioning can become thinner or worn. ?? Overloaded feet -- Excess weight from or obesity and standing or walking on hard surfaces for long periodscan place extra pressure on the bones in the balls of your feet. The result is muscle fatigue, pain and swelling. ?? Nerve disorders -- Alvarez???s neuroma is a benign growth that can develop on a nerve within your foot. The neuroma can cause a burning, numbness or shooting pain that may radiate to other parts of your foot. Soreness may persist even when you are resting. Self-help steps ?? Wear appropriate shoes -- Do not wear tight shoes or shoes with thin soles and high heels. High heels shift the weight of your body to the front of the foot causing more pressure and strain on the joints at the ball of your foot. Wear shoes with low heels (one to two inches maximum) which distribute your body weight over your entire foot. The toe box should be wide enough for the ball of your foot to fit comfortably in thewidest part of the shoe. Wear shoes with good arch support and shock absorption. If you have symptoms of a Alvarez???s neuroma, remove your shoes occasionally and gently massage the painful area -- if you pinch or rub firmly, you may experience pain as intense as when you hit your ???funny bone.? Use an orthotic device -- If you have a foot deformity, wearing a custom shoe insert can help change and distribute pressure on your foot more evenly. A foot and ankle specialist can prescribe an orthotic device that is bestsuited to your needs. Pre-made inserts are also available without a prescription. ?? Use a metatarsal pad -- A metatarsal pad placed just behind the ball of your foot can lift and take pressure off the painful area. Proper placement of the pad is essential. Be sure to ask for assistance from your health care provider when placing the pad. Because the pad occupies space, you may need a larger shoe when using a pad. ?? Use pain relievers -- Vmnr-vva-oblvmek medications such as ibuprofen (examples are Advil??? and Motrin???) or naproxen (examples are Aleve??? and Naproxyn???) may ease your pain and reduce inflammation. Reduce their use as your pain improves. ?? Lose weight -- If you are overweight, shed excess pounds to reduce pressure on your feet. ?? Try alternative forms of exercise -- Temporarily reduce walking or jogging until metatarsalgia pain stops. Gradually return to your usual exercise program when you have recovered. While your foot is healing, try exercises such as swimming, water aerobics or bicycling that put less stress on your feet. ?? Consider surgery -- Surgery is seldom needed to treat metatarsalgia. However, if conservative treatment for Alvarez???s neuroma fails, surgery to remove the neuroma may be needed. Surgical treatment for other types of metatarsalgia includes repositioning of the metatarsal bones. Although these treatments may offer relie f, the potential risk includes transferring metatarsalgia pain to another part of the foot. Be sure to discuss the risks and benefits of various treatment options with a foot and ankle specialist. Conclusion Metatarsalgia in its mildest form can be annoying. However, in more extreme cases it can be disabling. Fortunately, simple treatments usually bring relief and allow most people to gradually resume their normal activities. This material is for your education and information only. This content does not replace medical advice, diagnosis or treatment. New medical research may change this information. If you have questions about a medical condition, always talk with your health care provider. ? 2001 [facility] ([facility]). All rights reserved. [id number] documented in this encounter Progress Notes Rody Washburn APRN, C.N.P., Piyush.N.P. - 03/15/2021 11:00 AM CDT Images from the original note were not included. SUBJECTIVE CHIEF COMPLAINT / REASON FOR VISIT Jhon Banegas is a 35 y.o. male who presents for evaluation of Foot Pain (Right foot ). HISTORY OF PRESENT ILLNESS 1. 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 For the past month he has been experiencing pain on the plantar aspect of his right foot on the ball of the foot, between the second and third toes. Pain began after running. Over the past few weeks pain has become more persistent and severe. No known injury or trauma aside from running routinely on gravel roads. No swelling, erythema, or ecchymosis. The following portions of the patient's history were reviewed and updated as appropriate: allergies,current medications and problem list. OBJECTIVE PHYSICAL EXAM Constitutional Appearance: Normal appearance. Musculoskeletal Right foot: Normal range of motion. No deformity. Left foot: Normal range of motion. No deformity. Feet: Feet Right foot: Skin integrity: Dry skin present. Left foot: Skin integrity: Dry skin present. Comments: Bilateral feet and ankles warm and well-perfused, normal range of motion.Neurological Mental Status: He is alert. ASSESSMENT / PLAN #1 Pain Foot Right Benjamin has been experiencing pain on the plantar aspect of the right foot for the past month. Suspect metatarsalgia. Recommend conservative treatment with rest, ice, OTC metatarsal pad, and supportive shoes. He would like an x-ray and referral to Sports Medicine which is quite reasonable. Should x-ray show fracture follow-up with Ortho as needed. - Sports Medicine - General consult (clinic); Future; Expected date: 03/15/2021 - DX Foot Right 3+ Views; Future; Expected date: 03/15/2021 PATIENT EDUCATION Ready to learn, no apparent learning barriers were identified; learning preferences include listening. documented in this encounter Plan of Treatment Scheduled Referrals Name Type Priority Associated Diagnoses Order S [facility] Sports Medicine - Outpatient Referral Routine Pain Foot Right Expected: General consult 03/15/2021 (clinic) (Approximate), Expires: 03/15/2024 documented as of this encounter Results DX Foot Right 3+ Views (03/15/2021 2:29 PM CDT) Anatomical Region Laterality Modality Lower Extremity, Foot, Musculoskeletal RST LOS, Right Digital Radiography Musculoskeletal ARZ LOS, Muskuloskeletal FLA LOS Specimen (Source) Anatomical Collection Method Collection Time Re ceived Time Location / / Volume Laterality 03/15/2021 2:38 PM CDT Impressions 03/15/2021 2:39 PM CDT No acute abnormalities are identified in the right foot. Narrative 03/15/2021 2:39 PM CDT EXAM: DX FOOT RIGHT 3+ VIEWS COMPARISON: None. FINDINGS: No acute abnormalities are delroy ntified in the right foot. No fractures are seen. There is normal mineralization and alignment. No significant arthritic changes are identified. Procedure Note Varun Limon M.D. - 03/15/2021Format ting of this note might be different from the original. EXAM: DX FOOT RIGHT 3+ VIEWS COMPARISON: None. FINDINGS: No acute abnormalities are delroy ntified in the right foot. No fractures are seen. There is normal mineralization and alignment. No significant arthritic changes are identified. IMPRESSION: No acute abnormalities are identified in the right foot. Rody Washburn APRN, C.N.P., Piyush.N.P. IMG DIAGNOSTIC IMAGING PROCEDURES documented in this encounter Visit Diagnoses Diagnosis Pain Foot Right - Primary Pain Foot Right documented in this encounter Care Teams Poultry Killer Relationship Specialty Start Date End Date Rody Washburn APRN, C.N.P., Piyush.N.P . PCP - General 05/07/19 [address] [place] [address] documented as of this encounter
--- OUTSIDE RECORDS SUMMARY | 2022-08-06 21:07 | XMS_ITS | Encounter Summary ---
:1985 Author Organization [facility] Address [address] [place] [address] Care Team Providers Name Role Phone Unavailable Primary Care Provider Unavailable Encounter Details Date Type Department Care Team Description 12/02/2012 Hospital Encounter HX NO MAPPING Social History Tobacco Use Types Packs/Day Years Used Date Smoking Tobacco: Never Assessed Alcohol Habits Answer Date Recorded How often do you have a drink containing 4 or more times a w [place] 03/15/2021 alcohol? How many drinks containing alcohol [...] or relatives? How often do you attend catholic or taoist Never 03/15/2021 services? Do you belong to any clubs or organizations Yes 03/15/2021 such as catholic groups, unions, fraternal or athletic groups, or [...] place to sleep or slept in a prison (including now)? Sex Assigned at Date Recorded Not on file documented as of this encounter Plan of Treatment Not on filedocumented as of this encounter Visit Diagnoses Not on filedocumented in this encounter
--- OUTSIDE RECORDS SUMMARY | 2022-08-06 21:07 | XMS_ITS | Encounter Summary ---
:1985 Author Organization [facility] Address [address] [place] [address] Care Team Providers Name Role Phone Rody Washburn APRN, C.NMauro, D.N.P. Primary Care Provid Reason for Visit Outpatient (Routine) - Closed Specialty Diagnoses / Procedures Referred By Contact Refer red To Contact Sports Medicine Diagnoses [facility] LEDESMAN.Sen, D.N.P. [address] [place] [phone] Referral ID Status Reason Start Date Expiration Date Visits Requ ested Visits Authorized [id number] Closed 03/15/2021 03/15/2022 1 1 Encounter Details Date Type Department Care Team Description 03/21/2021 Comprehensive Visit Department of Sports Stella, Ed pradhan Pain Foot Right Medicine in [place]wendolyn Negrete [place], [place] [address] [place] [address] [place] [phone] Social History Tobacco Use Types Packs/Day Years Used Date Smoking Tobacco: Former Smokeless Tobacco: Never Alcohol Use Standard Drinks/Week Comments Yes 0 (1 standard drink = 0.6 oz pure alcoho l) 20 drinks weekly Alcohol Habits Answer Date Recorded How often do you have a drink containing 4 or more times a w [place] 03/15/2021 alcohol? How many drinks containing alcohol [...] or relatives? How often do you attend baptist or spiritism Never 03/15/2021 services? Do you belong to any clubs or organizations Yes 03/15/2021 such as baptist groups, unions, fraternal or athletic groups, or [...] place to sleep or slept in a retirement (including now)? Education Answer Date Recorded What is the highest level of school Master's degree (e.g., M A, MS, 03/14/2021 you have completed or the highest Shubham, MEd, MECHANICAL ENGINEERING PROFESSOR, LAURA) degree you have received? Sex Assigned at Date Recorded Not on file documented as of this encounter Patient Instructions Patient InstructionsCarolyn Samuel, L.A.T. - 03/21/2021 1:30 PM CDT Instructions for follow up care: Today you saw Dr. Douglas for evaluation of your right foot. Discussed at your appointment were the following items: Diagnosis: right foot- metatarsalgia Plan: Dr. Douglas recommend cross training for a couple weeks to help settle down the pain in your foot.It is also recommended that you get over the counter orthotic to help with dissipate force over the metatarsal heads. It is also recommended that you change your shoes regularly, especially if you notice excessive wear pattern. 350 -400 miles (500 miles maximum) on a pair of shoes is best, depending on type of shoe you are wearing. When you return to run, make sure that you ramp up your mileage slowly, and cross train intermittently as part of your work out plan. For any further questions or concerns, please contact [facility] Department of Orthopedics and Sports Medicine via your patient portal or call [phone]. documented in this encounter Consult Notes Vicente Douglas M.D. - 03/21/2021 1:30 PM CDT SUBJECTIVE REQUESTING PROVIDER Rody Washburn APRN, C.N.P., D.N.P. REASON FOR CONSULT Right foot pain HISTORY OF PRESENT ILLNESS Mr. Jhon Banegas is a 35 y.o. male who presents today for evaluation of right foot pain. This delightful gentleman relates 4-5 week history of right foot pain in the region of the metatarsal heads. Hestarted running on a regular basis and November and has gradually progressed his mileage to around 4miles, 3-5 days per week. He does not relate any specific injury, though he was running on uneven ground with a fair amount of gravel. Pain is worse with increased walking and with impact activity. He denies any radiation of pain and there is no focal lower extremity weakness or sensory symptoms. The following portions of the patient's history were reviewed and updated as appropriate: allergies,current medications, family history, medical history, social history, surgical history and problem list. REVIEW OF SYSTEMS REVIEW OF SYSTEMS I have briefly reviewed the Review of Systems as noted on the Health history form. I am only responding to those symptoms which are directly relevant to the specific indication for my consultation. I recommend that the patient follow up with their primary or referring provider to pursue any other symptoms which may be of concern. OBJECTIVE There were no vitals taken for this visit. PHYSICAL EXAM Physical Exam General/constitutional: Well-developed, well-nourished male in no acute distress. Mental status/psychologic: Appropriate mood and affect. No atypical or exaggerated pain responses were noted. Grossly oriented with coherent speech and thought processing Neurologic: Sensation: Normal light touch sensation in lower extremities Musculoskeletal: Gait: Gait reveals normal katy and stride. Non-antalgic. Strength: Ankle group muscles have normal and symmetric muscle strength, bulk, and tone Palpation: No widespread tenderness Joint ROM: Joint range of motion within functional limits throughout Provocative maneuvers: Right ankle/foot: Ankle drawer is equal symmetric bilaterally and squeeze and external rotation stress tests are negative. There is no medial or lateral ankle ligament tenderness. Metatarsal squeeze test is negative. There is no palpable Jannet's click. There is mild pain on palpation of the 3rd metatarsal head but no significant swelling. Skin: Skin grossly negative for erythema, breakdown, or concerning lesions in affected area Lymphatic: No lymphedema appreciated in the involved extremity Cardiovascular: Good peripheral perfusion. No significant lower extremity edema Respiratory: Breathing comfortable and regular. No dyspnea noted DIAGNOSTICS Imaging: I reviewed the following images and Radiology report with the patient, with findings as noted: DX Foot Right 3+ Views Result Date: 03/15/2021 Impression: No acute abnormalities are identified in the right foot. ASSESSMENT / PLAN 1. Pain Foot Right I discussed the diagnosis and general prognosis with the patient, and we developed the following action plan: Findings are consistent with right metatarsalgia. We will fit him with orthotics to optimize foot biomechanics and hopefully unload the metatarsal head region. We also discussed cross training with low-impact exercise and activity for the next 2-3 weeks, and we also discussed incorporating some low-impact cross- training into his regular aerobic conditioning program. Follow-up: as needed. EDUCATION We discussed the diagnosis and treatment plan in detail. The patient expressed understanding of the content. Learning preferences include listening. No apparent learning barriers were identified PPE use information for possible contact monitoring: PPE used during visit: Provider was wearing a mask and eye protection throughout entire session. Patient was wearing a mask throughout entire session. Signed by: Vicente Douglas M.D. 03/21/2021 2:14 PM CDT documented in this encounter Plan of Treatment Not on filedocumented as of this encounter Visit Diagnoses Diagnosis Pain Foot Right documented in this encounter Care Teams Toll Service Observer Relationship Specialty Start Date End Date Rody Washburn APRN, C.N.P., D.N.P . PCP - General 05/07/19 [address] [place] [address] documented as of this encounter
--- OUTSIDE RECORDS SUMMARY | 2022-08-06 21:07 | XMS_ITS | Encounter Summary ---
:1985 Author Organization [facility] Address [address] [place] [address] Care Team Providers Name Role Phone Unavailable Primary Care Provider Unavailable Encounter Details Date Type Department Care Team Description 07/05/2014 Hospital Encounter HX NO MAPPING Social History Tobacco Use Types Packs/Day Years Used Date Smoking Tobacco: Never Assessed Alcohol Habits Answer Date Recorded How often do you have a drink containing 4 or more times a w [place] 03/15/2021 alcohol? How many drinks containing alcohol [...] or relatives? How often do you attend zoroastrian or pentecostal Never 03/15/2021 services? Do you belong to any clubs or organizations Yes 03/15/2021 such as zoroastrian groups, unions, fraternal or athletic groups, or [...] place to sleep or slept in a [facility] (including now)? Sex Assigned at Date Recorded Not on file documented as of this encounter Plan of Treatment Not on filedocumented as of this encounter Visit Diagnoses Not on filedocumented in this encounter
--- OUTSIDE RECORDS SUMMARY | 2022-08-06 21:07 | XMS_ITS | Encounter Summary ---
:1985 Author Organization [facility] Address [address] [place] [address] Care Team Providers Name Role Phone Rody Washburn APRN, C.NMauro, D.N.P. Primary Care Provid Encounter Details Date Type Department Care Team Description 03/15/2021 Hospital Encounter Department of Rody Washburn [facility] Right Radiology in [place] D.N.P. [address] [place] [address] [address] [place] [phone] (Wo rk) Social History Tobacco Use Types [...] or relatives? How often do you attend baptism or evangelical Never 03/15/2021 services? Do you belong to any clubs or organizations Yes 03/15/2021 such as baptism groups, unions, fraternal or athletic groups, or [...] have completed or the highest Shubham, MEd, ARMORED SERVICE TECHNICIAN, LAURA) degree you have received? Sex [...] grams total of acetomenophen from all sources omeprazole (PriLOSEC) Take 1 capsule (20 mg 90 capsule 3 08/24/[address] capsule total) by mouth daily. documented as of this encounter Plan of Treatment Not on filedocumented as of this encounter Procedures Procedure Name Priority Date/Time Associated Comments Diagnosis DX FOOT RIGHT 3+ RAD - Routine 03/15/2021 2:29 Pain Foot Right Resu lts for this VIEWS (most inpatients PM CDT procedure a re in and all the results outpatients) section. documented in this encounter Results DX Foot Right 3+ [...] the right foot. Rody Washburn APRN, C.N.P., D.N.P. IMG DIAGNOSTIC IMAGING PROCEDURES documented in this encounter Visit Diagnoses Diagnosis Pain Foot Right documented in this encounter Care Teams Railroad Carman Relationship Specialty Start Date End Date Rody Washburn APRN, C.N.P., D.N.P . PCP - General 05/07/[address] [place] [address] documented as of this encounter
--- OUTSIDE RECORDS SUMMARY | 2022-08-06 21:07 | XMS_ITS | Encounter Summary ---
:1985 Author Organization [facility] Address [address] [place] [address] Care Team Providers Name Role Phone Rody Washburn APRN, C.N.P., D.N.P. Primary Care Provid er Encounter Details Date Type Department Care Team Description 05/13/2019 Orders Only RST PCP [facility] MNT Rody Washburn APR N, Screening Lipid C.N.P., D.N.P. [address] [place], [place] [phone] (Wo rk) Social History Tobacco Use Types Packs/Day Years Used Date Smoking Tobacco: Former Alcohol Habits Answer Date Recorded How often do you have a drink containing 4 or more times a w [place] 03/15/2021 alcohol? How many drinks containing alcohol [...] How often do you attend religious or jainism Never 03/15/2021 services? Do you belong to [...] place to sleep or slept in a care home (including now)? Sex Assigned at Date Recorded Not on file documented as of this encounter Plan of Treatment Not on filedocumented as of this encounter Visit Diagnoses Diagnosis Screening Lipid documented in this encounter Care Teams Head Worker Relationship Specialty Start Date End Date Rody Washburn APRN, C.N.P., D.N.P . PCP - General 05/07/19 [address] [place] [address] documented as of this encounter
--- OUTSIDE RECORDS SUMMARY | 2022-08-06 21:07 | XMS_ITS | Encounter Summary ---
:1985 Author Organization [facility] Address [address] [place] [address] Care Team Providers Name Role Phone Rody Washburn APRN, C.N.P., D.N.P. Primary Care Provid er Encounter Details Date Type Department Care Team Description 08/14/2020 Orders Only RST PCP [facility] MNT Rody Washburn APR N, Screening Lipid C.N.P., D.N.P. [address] [place], [place] [phone] (Wo rk) Social History Tobacco Use Types Packs/Day Years Used Date Smoking Tobacco: Former Smokeless Tobacco: Never Alcohol Use Standard Drinks/Week Comments Yes 0 (1 standard drink = 0.6 oz pure alcoho l) 20 drinks weekly Alcohol Habits Answer Date Recorded How often do you have a drink containing 4 or more times a w hopi 03/15/2021 alcohol? How many drinks containing alcohol [...] or relatives? How often do you attend yarsani or temple Never 03/15/2021 services? Do you belong to any clubs or organizations Yes 03/15/2021 such as yarsani groups, unions, fraternal or athletic groups, or [...] or slept in a intermediate (including now)? Sex Assigned at Date Recorded Not on file documented as of this encounter Plan of Treatment Not on filedocumented as of this encounter Visit Diagnoses Diagnosis Screening Lipid documented in this encounter Care Teams Environmental Services Aide Relationship Specialty Start Date End Date Rody Washburn APRN, C.N.P., D.N.P . PCP - General 05/07/19 [address] [place] [address] documented as of this encounter
--- OUTSIDE RECORDS SUMMARY | 2022-08-06 21:07 | XMS_ITS | Encounter Summary ---
:1985 Author Organization [facility] Address [address] [place] [address] Care Team Providers Name Role Phone Unavailable Primary Care Provider Unavailable Encounter Details Date Type Department Care Team Description 01/12/2013 Hospital Encounter HX RST PMR PT OT CON Noel Hernandez C.H.T., O.T. [address] [place] [phone] (Wo rk) Social History Tobacco Use Types Packs/Day Years Used Date Smoking Tobacco: Never Assessed Alcohol Habits Answer Date Recorded How often do you have a drink containing 4 or more times a w [place] 03/15/2021 alcohol? How many drinks containing alcohol [...] or relatives? How often do you attend anabaptist or scientology Never 03/15/2021 services? Do you belong to any clubs or organizations Yes 03/15/2021 such as anabaptist groups, unions, fraternal or athletic groups, or [...] place to sleep or slept in a assisted (including now)? Sex Assigned at Date Recorded Not on file documented as of this encounter Plan of Treatment Not on filedocumented as of this encounter Visit Diagnoses Not on filedocumented in this encounter
--- OUTSIDE RECORDS SUMMARY | 2022-08-06 21:07 | XMS_ITS | Encounter Summary ---
:1985 Author Organization [facility] Address [address] [place] [address] Care Team Providers Name Role Phone Rabia Aquino P.A.-C., M.S., M.P.A. Primary Care Provider Unavailable Encounter Details Date Type Department Care Team Description 09/15/2015 Hospital Encounter HX NO MAPPING Social History [...] How often do you attend hinduism or zoroastrian Never 03/15/2021 services? Do you belong to [...] on filedocumented in this encounter Care Teams Housefellow Relationship Specialty Start Date End Date Rabia Aquino P.A.-C., M.S., PCP - General Internal Medicine 12/0405/06/19 MAlicePAdeline. documented as of this encounter
--- OUTSIDE RECORDS SUMMARY | 2022-08-06 21:07 | XMS_ITS | Encounter Summary ---
:1985 Author Organization [facility] Address [address] [place] [address] Care Team Providers Name Role Phone Unavailable Primary Care Provider Unavailable Encounter Details Date Type Department Care Team Description 12/03/2012 Hospital Encounter HX RST NURSING Myles Joseph D.O., M.S. [address] [place], [place] [phone] (Wo rk) Social History Tobacco Use Types Packs/Day Years Used Date Smoking Tobacco: Never Assessed Alcohol Habits Answer Date Recorded How often do you have a drink containing 4 or more times a w [place] 03/15/2021 alcohol? How many drinks containing alcohol [...] or relatives? How often do you attend confucianism or mormonism Never 03/15/2021 services? Do you belong to any clubs or organizations Yes 03/15/2021 such as confucianism groups, unions, fraternal or athletic groups, or [...]
--- OUTSIDE RECORDS SUMMARY | 2022-08-06 21:07 | XMS_ITS | Encounter Summary ---
:1985 Author Organization [facility] Address [address] [place] [address] Care Team Providers Name Role Phone Rabia Aquino P.A.-C., M.Torey., M.P.A. Primary Care Provider Unavailable Reason for Visit Reason Comments Pain Pt has several complaints to day. When asked to pick one he states he has right sided pain x10 days worse wi th twisting and turning , no pain when standing Encounter Details Date Type Department Care Team Description 10/17/2017 Emergency [facility] Monroe, Pos tprocedural Hematoma Of Skin And Subcutaneous Tissue Following Other Procedure (Primary Dx); Department P.A.-C. Pain Right Lower Quadrant [address] [place] [id number] [phone] Social History Tobacco Use Types Packs/Day Years Used Date Smoking Tobacco: Never Assessed Alcohol Habits Answer Date Recorded How often do you have a drink containing 4 or more times a w minto 03/15/2021 alcohol? How many drinks containing alcohol [...] or relatives? How often do you attend caodaism or rastafarian Never 03/15/2021 services? Do you belong to any clubs or organizations Yes 03/15/2021 such as caodaism groups, unions, fraternal or athletic groups, or [...] Sign Reading Time Taken Comments Blood Pressure 112/79 10/17/2017 3:02 PM UI ENGINEER Pulse 78 10/17/2017 3:02 PM UI ENGINEER Temperature 36.6 ??C (97.9 ??F) 10/17/2017 3:02 PM UI ENGINEER Respiratory Rate 16 10/17/2017 3:02 PM UI ENGINEER Oxygen Saturation 97% 10/17/2017 3:02 PM UI ENGINEER Inhaled Oxygen Concentration - - Weight 102 kg (224 lb 13.9 oz) 10/17/2017 2:13 PM UI ENGINEER Height 172 cm (5' 7.72) 10/17/2017 2:13 PM UI ENGINEER Body Mass Index 34.48 10/17/2017 2:13 PM UI ENGINEER documented in this encounter Discharge Instructions AttachmentsThe following attachments cannot be sent through Care Everywhere. Hematoma [id number] (South Korean)documented in this encounter Medications at Time of [...] by acetaminophen. documented as of this encounter ED Notes Juana Monroe P.A.-C., P.A. - 10/17/2017 2:36 PM CST SUBJECTIVE CHIEF COMPLAINT/REASON FOR VISIT Pain (Pt has several complaints today. When asked to pick one he states he has right sided pain x10 days worse with twisting and turning , no pain when standing) HISTORY OF PRESENT ILLNESS Pt presents with concern of R side pain that has been there 10 days or more. Cannot recall when the pain started or what he was doing at the time. 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 The pain has increased in the past 2-3 days. The pain radiates into the groin sometimes. Denies UTI sxs or hematuria. Has felt nauseous the pastcouple of days without vomiting or diarrhea. Denies fevers. Denies cough or URI sxs. Pt is s/p R carmen-acetabular osteotomy done in [place] on 08/25/17. Denies complications. Just returned to work 3 days ago s/p surgery. REVIEW OF SYSTEMS Constitutional: Negative for fever. HENT: Negative. Negative for ear pain, sinus pressure and sore throat. Eyes: Negative. Respiratory: Negative for cough and shortness of breath. Cardiovascular: Negative for chest pain. Gastrointestinal: Positive for nausea. Negative for diarrhea and vomiting. Endocrine: Negative. Genitourinary: Negative. Negative for dysuria and hematuria. Musculoskeletal: Negative. Skin: Negative. Allergic/Immunologic: Negative. Neurological: Negative. Hematological: Negative. Psychiatric/Behavioral: Negative. OBJECTIVE Initial Vitals [10/17/17 1410] Temperature Pulse Rate Heart Rate Resp Rate Blood Pressure SpO2 36.4 ??C 75 -- 16 112/82 94 % Pain Score 8 PHYSICAL EXAMINATION Constitutional: He appears well-developed and well-nourished. No distress. HENT: Head: Normocephalic and atraumatic. Mouth/Throat: Oropharynx is clear and moist. Mucous membranes are moist. No tonsillar exudate. Eyes: EOM are normal. Pupils are equal, round, and reactive to light. Cardiovascular: Normal rate and regular rhythm. Pulmonary/Chest: Effort normal and breath sounds normal. There is normal air entry. No respiratory distress. Abdominal: Soft. There is tenderness (RLQ, neg [place]. ). There is no guarding. No flank pain. No pain with twisting or lateral bending of the torso nor with movement of the UE. Musculoskeletal: Normal range of motion. Tender when palpated along R upper iliac crest. Suture site appears to be healing well without redness, swelling, or drainage. No pain with AROM or PROM at joint. Neurological: He is alert and oriented to person, place, and time. Skin: Skin is warm and dry. No rash noted. Psychiatric: He has a normal mood and affect. His behavior is normal. Nursing note and vitals reviewed. ASSESSMENT/PLAN CT with possible hematoma RLQ s/p surgery. WBC unremarkable and no other indicators for possible infectious process. Sxs cares at this time. Ibuprofen may help. Has f/u with Ortho next week. Advised tof/u prn. RTER prn. ED Course as of Oct 17 1557 Fri Oct 17, [address] Abdomen Pelvis with IV Contrast Final Diagnoses: as of Oct 17 1557 Postprocedural Hematoma Of Skin And Subcutaneous Tissue Following Other Procedure Pain Right Lower Quadrant Juana Monroe P.A.-C., P.A. 10/17/17 1600 ENGINEER documented in this encounter Plan of Treatment Not on filedocumented as of this encounter Procedures Procedure Name Priority Date/Time Associated Comments Diagnosis CT ABDOMEN PELVIS RAD - Semiurgent 10/17/2017 3:25 Res ults for this WITH IV CONTRAST (Fast; most ED PM UI ENGINEER procedure are in patients; some the results inpatients) section. CBC WITH STAT 10/17/2017 2:38 Results for this DIFFERENTIAL, B PM UI ENGINEER procedure ar e in the results section. BASIC METABOLIC STAT 10/17/2017 2:38 Results f or this PANEL, S/P PM UI ENGINEER procedure are i n the results section. URINALYSIS WITH STAT 10/17/2017 2:30 Results f or this MICROSCOPIC IF PM UI ENGINEER procedure are in INDICATED, U the results section. MICROSCOPIC MANUAL STAT 10/17/2017 2:30 Result s for this PM UI ENGINEER procedure are i n the results section. documented in this encounter Results CT Abdomen Pelvis with IV Contrast (10/17/2017 3:25 PM UI ENGINEER) Anatomical Region Laterality Modality Abdomen, Pelvis N/A Computed Tomography Specimen (Source) Anatomical Collection Method Collection Time Re ceived Time Location / / Volume Laterality 10/17/2017 3:33 PM UI ENGINEER Impressions 10/17/2017 3:41 PM UI ENGINEER IMPRESSION: 1. ??Previous surgical changes right hem ipelvis. 2. ??Mild infiltration right lower quadr ant anterior abdominal wall subcutaneous fat. 3. ??Hepatic steatosis and borderline sp lenomegaly. 4. ??Small left renal cyst. Narrative 10/17/2017 3:41 PM UI ENGINEER EXAM: CT ABDOMEN PELVIS WITH IV CONTRAST COMPARISON: Pelvis x-ray 08/25/2017 FINDINGS: CHEST:Visible portions of the ??lung bas es are unremarkable. The visible portions of the heart and aorta are unremarkable. LIVER: Diffuse low-attenuation of the li evette compatible with hepatic steatosis. Gallbladder is unremarkable. SPLEEN: Spleen is mildly enlarged measur ing 14.4 cm, may be normal variant. STOMACH/DUODENUM: Stomach and duodenum a re unremarkable. PANCREAS: Pancreas is unremarkable. ADRENAL GLANDS: Adrenal glands are unrem arkable. KIDNEYS: 1.2 cm cyst inferior pole left kidney. ??Kidneys otherwise unremarkable. COLON/SMALL BOWEL: Mild colonic divertic ulosis without evidence of diverticulitis. ??Abdominal and pelvic b owel loops including appendix otherwise appear normal. PELVIS: Pelvic contents are unremarkable . MESENTERY AND RETROPERITONEUM: ??No sign ificant abdominal or pelvic lymphadenopathy or ascites. ?? Aorta and mesenteric vessels are unremarkable. ABDOMINAL WALL: Mild infiltration of the right lower quadrant anterior abdominal wall fat, may be postoperative. ??Could also be related to hematoma or less likely infection. BONES: Previous surgical changes right h emipelvis. ??No pathologic osseous lesions. Procedure Note Kashmir Blake M.D. - 10/17/2017Formatti ng of this note might be different from the original. EXAM: CT ABDOMEN PELVIS WITH IV CONTRAST COMPARISON: Pelvis x-ray 08/25/2017 FINDINGS: CHEST:Visible portions of the lung bases are unremarkable. The visible portions of the heart and aorta are unremarkable. LIVER: Diffuse low-attenuation of the li evette compatible with hepatic steatosis. Gallbladder is unremarkable. SPLEEN: Spleen is mildly enlarged measur ing 14.4 cm, may be normal variant. STOMACH/DUODENUM: Stomach and duodenum a re unremarkable. PANCREAS: Pancreas is unremarkable. ADRENAL GLANDS: Adrenal glands are unrem arkable. KIDNEYS: 1.2 cm cyst inferior pole left kidney. Kidneys otherwise unremarkable. COLON/SMALL BOWEL: Mild colonic divertic ulosis without evidence of diverticulitis. Abdominal and pelvic bow el loops including appendix otherwise appear normal. PELVIS: Pelvic contents are unremarkable . MESENTERY AND RETROPERITONEUM: No signif icant abdominal or pelvic lymphadenopathy or ascites. Aorta and me senteric vessels are unremarkable. ABDOMINAL WALL: Mild infiltration of the right lower quadrant anterior abdominal wall fat, may be postoperative. Could al so be related to hematoma or less likely infection. BONES: Previous surgical changes right h emipelvis. No pathologic osseous lesions. IMPRESSION: 1. Previous surgical changes right hemip val. 2. Mild infiltration right lower quadran t anterior abdominal wall subcutaneous fat. 3. Hepatic steatosis and borderline sple nomegaly. 4. Small left renal cyst. Juana Monroe P.A.-C. IMG CT PROCEDURES BMP (Basic Metabolic Panel) (10/17/2017 2:38 PM [facility]) athologist Signature Potassium, P 3.9 3.6 - 5.2 10/17/2017 [facility] mmol/L 3:09 PM [facility] Sodium, P 140 135 - 145 10/17/2017 [facility] mmol/L 3:09 PM [facility] Chloride, P 98 98 - 107 10/17/2017 [facility] mmol/L 3:09 PM [facility] Bicarbonate, P 27 22 - 29 10/17/2017 [facility] mmol/L 3:09 PM [facility] Anion Gap, P 15 7 - 15 10/17/2017 [facility] 3:09 PM [facility] BUN (Blood Urea 11 8 - 24 10/17/2017 [facility] Nitrogen), P mg/dL 3:09 PM [facility] Creatinine 0.91 0.74 - 10/17/2017 [facility] 1.35 mg/dL 3:09 PM [facility] eGFR-Black/Afri >90 >=60 10/17/2017 [facility] can Slovenian mL/min/BSA 3:09 PM [facility] Comment: ----ADDITIONAL INFORMATION---- Estimated GFR calculated using the 2009 CKD_EPI creatinine equation. eGFR Non-Black/ >90 >=60 mL/min/BSA 10/17/2017 3:09 PM [facility] Slovenian [facility] Comment: ----ADDITIONAL INFORMATION---- Estimated GFR calculated using the 2009 CKD_EPI creatinine equation. Calcium, Total, P 9.6 8.9 - 10.1 mg/dL 10/17/2017 3 :09 PM [facility] Glucose, P 96 70 - 140 mg/dL 10/17/2017 3:09 PM [facility] Specimen Anatomical Collection Method Collection Time Receive d Time (Source) Location / / Volume Laterality Blood (Blood, 10/17/2017 2:38 PM 10/17/19 18 2:40 Venous) UI ENGINEER PM UI ENGINEER Juana Monroe P.A.-C. LAB BLOOD ADD-ON Performing Organization Address City/State/ZIP Code Phon e Number [facility]- [address] [place] [id number] [facility] CBC with Differential (10/17/2017 2:38 PM UI ENGINEER) P athologist Signature Hemoglobin 14.8 13.2 - 10/17/2017 [facility] 16.6 g/dL 2:45 PM [facility] Hematocrit 42.6 38.3 - 10/17/2017 [facility] 48.6 % 2:45 PM [facility] Erythrocytes 4.88 4.35 - 10/17/2017 [facility] 5.65 2:45 PM UI ENGINEER HEALTH x10(12)/L [facility] MCV 87.3 78.2 - 10/17/2017 [facility] 97.9 fL 2:45 PM [facility] RBC Distrib Width 11.9 11.8 - 10/17/2017 [facility] 14.5 % 2:45 PM [facility] Platelet Count 259 135 - 317 10/17/2017 [facility] x10(9)/L 2:45 PM [facility] Leukocytes 6.7 3.4 - 9.6 10/17/2017 [facility] x10(9)/L 2:45 PM [facility] Neutrophils 4.53 1.56 - 10/17/2017 [facility] 6.45 2:45 PM UI ENGINEER HEALTH x10(9)/L [facility] Lymphocytes 1.34 0.95 - 10/17/2017 [facility] 3.07 2:45 PM UI ENGINEER HEALTH x10(9)/L [facility] Monocytes 0.66 0.26 - 10/17/2017 [facility] 0.81 2:45 PM UI ENGINEER HEALTH x10(9)/L [facility] Eosinophils 0.11 0.03 - 10/17/2017 [facility] 0.48 2:45 PM UI ENGINEER HEALTH x10(9)/L [email or web address] [facility] Basophils 0.03 0.01 - 10/17/2017 [facility] 0.08 2:45 PM [facility] x10(9)/L [facility] Specimen Anatomical Collection Method Collection Time Receive d Time (Source) Location / / Volume Laterality Blood (Blood, 10/17/2017 2:38 PM 10/17/19 18 2:40 Venous) UI ENGINEER PM UI ENGINEER Juana Monroe P.A.-C. LAB BLOOD ADD-ON Performing Organization Address City/State/ZIP Code Phon e Number [facility]- [id number] [facility] [address] [place] [address] [facility] (ABNORMAL) Microscopic Manual (10/17/2017 2:30 PM UI ENGINEER) athologist Signature White Blood Occ-3 /hpf 10/17/2017 [facility] Cells 2:57 PM [facility] Comment: ----REFERENCE VALUE---- Males: 0-3 Females: 0-10 Unknown: 0-10 Red Blood Cells Occ-2 0 - 2 /hpf 10/17/2017 2:58 PM [facility] Dysmorphic RBC <=25 <=25 % 10/17/2017 2:57 PM [facility] Casts, Hyaline CANCELED /lpf 10/17/2017 2:58 PM [facility] Comment: REVISED RESULTS ----PREVIOUSLY REPORTED ---- >100 Normal (Reported 10/17/2017 14:57) Epithelial Casts 4-10 (A) None Seen /lpf 10/17/2017 2:58 PM [facility] Red Blood Cell Casts 4-10 (A) None Seen /lpf 10/17/2017 2:5 8 PM [facility] Granular Casts None Seen None Seen /lpf 10/17/2017 2:[address] [facility] Squamous Epithelial Occ-3 /hpf 10/17/2017 2:[address] [facility] Bacteria None Seen None Seen 10/17/2017 2:57 PM [facility] Specimen Anatomical Collection Method Collection Time Receive d Time (Source) Location / / Volume Laterality Urine 10/17/2017 2:30 PM 8 2:53 UI ENGINEER PM UI ENGINEER Juana Monroe P.A.-C. LAB URINE ORDERABLES Performing Organization Address City/State/ZIP Code Phon e Number [facility]- [id number] [address] [facility] (ABNORMAL) Urinalysis with Microscopic if Indicated (10/17/2017 2:30 PM UI ENGINEER) P athologist Signature Source Midstream 10/17/2017 [facility] 2:53 PM [facility] Clarity Clear Clear 10/17/2017 [facility] 2:53 PM [facility] Color Yellow 10/17/2017 [facility] 2:53 PM [facility] Comment: ----REFERENCE VALUE---- Colorless Yellow [place] Blood Trace (A) Negative 10/17/2017 2:53 PM [facility] Nitrite Negative Negative 10/17/2017 2:53 PM [facility] Leukocyte Esterase Negative Negative 10/17/2017 2:53 PM [facility] Protein, U Negative mg/dL 10/17/2017 2:53 PM [facility] Comment: ----REFERENCE VALUE---- Negative Trace Glucose Negative Negative mg/dL 10/17/2017 2:53 PM [facility] Ketones, QL(U) Negative Negative mg/dL 10/17/2017 2:53 PM [facility] Bilirubin Negative Negative 10/17/2017 2:53 PM [facility] pH 5.5 5.0 - 8.0 10/17/2017 2:53 PM [facility] Specific [place] 1.025 1.001 - 1.035 10/17/2017 2:53 PM [facility] Urobilinogen 0.2 0.2 - 1.0 mg/dL 10/17/2017 2:53 PM [facility] Specimen Anatomical Collection Method Collection Time Receive d Time (Source) Location / / Volume Laterality Urine 10/17/2017 2:30 PM 8 2:41 UI ENGINEER PM UI ENGINEER Juana Monroe P.A.-C. LAB URINE ORDERABLES Performing Organization Address City/State/ZIP Code Phon e Number [facility]- [id number] [place] [address] [facility] documented in this encounter Visit Diagnoses Diagnosis Postprocedural Hematoma Of Skin And Subc utaneous Tissue Following Other Procedure - Primary Pain Right Lower Quadrant documented in this encounter Administered Medications Inactive Administered Medications - up to 3 most recent administrations Medication Order MAR Action Action Date Dose Rate Site iohexol (for_OMNIPAQUE) 300 mg Given 10/17/2017 3:00 PM UI ENGINEER 150 mL iodine/mL solution - ADS Override Pull Starting on Fri10/17/17 at 1441, For 1 dose, Created by cabinet override iohexol 300 mg iodine/mL solution 150 mL (for_OMNIPAQUE) 150 mL, intravenous, Once in imaging, co ntrast, Starting on Fri10/17/17 at 1444, For 1 dose NaCl 0.9 % bolus 78 mL New Bag 10/17/2017 2:46 PM UI ENGINEER 78 mL 78 mL, intravenous, Once, On Fri10/17/17 at 1446, For 1 dose sodium chloride 0.9 % injection 10 mL Given 10/17/2017 3:00 PM UI ENGINEER 10 mL 10 mL, intravenous, As needed, line care, Starting on Fri10/17/17 at 1445 documented in this encounter Active and Recently Administered Medications Times are shown in UI ENGINEER. Scheduled Medication Order 10/15/2017 10/16/2017 10/17/2017 NaCl 0.9 % bolus 78 mL (COMPLETED) 1446 (New Bag - Provider: Elisa Fonseca(Caden)) 78 mL, intravenous, Once, On Fri10/17/17 at 1446, For 1 dose PRN Medication Order 10/15/2017 10/16/2017 10/17/2017 iohexol 300 mg iodine/mL solution 150 mL (for_OMNIPAQUE) 1500 (Not Given - Provider: Elias Fonseca(R) - Reason: Other) 150 mL, intravenous, Once in imaging, co ntrast, Starting on Fri10/17/17 at 1444, For 1 dose sodium chloride 0.9 % injection 10 mL 1500 (Given - Provider: Elisa Fonseca(Caden)) 10 mL, intravenous, As needed, line care, Starting on Fri 8 at 1445 No Frequency Medication Order 10/15/2017 10/16/2017 10/17/2017 iohexol (for_OMNIPAQUE) 300 mg iodine/mL solution - ADS Override Pull (COMPLETED) 1500 (Given - Provid er: Elisa Fonseca(Caden)) Starting on Fri10/17/17 at 1441, For 1 dose, Created by cabinet override documented in this encounter Care Teams Claims Analyst Relationship Specialty Start Date End Date Rabia Aquino P.A.-C., M.S., PCP - General Internal Medicine 12/0405/06/19 Carol. documented as of this encounter
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
--- OUTSIDE RECORDS SUMMARY | 2022-08-06 21:08 | XMS_ITS | Encounter Summary ---
:1985 Author Organization [facility] Address [address] [place] [address] Care Team Providers Name Role Phone Unavailable Primary Care Provider Unavailable Encounter Details Date Type Department Care Team Description 10/17/2012 Hospital Encounter HX RST EMERGENCY Provider, Historic al TRAUMA UNI Social History Tobacco Use Types Packs/Day Years Used Date Smoking Tobacco: Never Assessed Alcohol Habits Answer Date Recorded How often do you have a drink containing 4 or more times a w [place] 03/15/2021 alcohol? How many drinks containing alcohol [...] or relatives? How often do you attend alevism or latter day Never 03/15/2021 services? Do you belong to any clubs or organizations Yes 03/15/2021 such as alevism groups, unions, fraternal or athletic groups, or [...] Name Priority Date/Time Associated Diagnosis Comme nts DX WRIST 2 VIEWS Routine 12/03/2013 10:11 AM Resu lts for this MILK PICKUP DRIVER procedure are i n the results section. DX WRIST 2 VIEWS Routine 12/03/2013 10:11 AM Resu lts for this MILK PICKUP DRIVER procedure are i n the results section. DX WRIST 2 VIEWS Routine 04/02/2013 1:18 PM Resul ts for this CDT procedure are i n the results section. DX WRIST 2 VIEWS Routine 02/09/2013 9:53 AM Resul ts for this CDT procedure are i n the results section. DX WRIST 3+ VIEWS Routine 01/12/2013 10:40 AM Res ults for this CDT procedure are i n the results section. DX WRIST 3+ VIEWS Routine 12/17/2012 9:43 AM Resu lts for this CDT procedure are i n the results section. FL FLUORO MORE THAN Routine 12/03/2012 6:01 PM Re sults for this 1 HOUR MILK PICKUP DRIVER procedure are i n the results section. CT UPPER EXTREMITY Routine 12/02/2012 1:49 PM Res ults for this WITHOUT IV CONTRAST MILK PICKUP DRIVER procedur e are in the results section. DX WRIST 3+ VIEWS Routine 12/01/2012 9:23 AM Resu lts for this MILK PICKUP DRIVER procedure are i n the results section. DX WRIST 3+ VIEWS Routine 10/27/2012 9:49 AM Resu lts for this MILK PICKUP DRIVER procedure are i n the results section. DX WRIST 3+ VIEWS Routine 10/17/2012 7:01 PM Resu lts for this MILK PICKUP DRIVER procedure are i n the results section. documented in this encounter Results DX Wrist 2 Views (12/03/2013 10:11 AM MILK PICKUP DRIVER) Anatomical Region Laterality Modality Radiographic Imaging Specimen (Source) Anatomical Collection Method Collection Time Re ceived Time Location / / Volume Laterality 12/03/2013 10:11 AM MILK PICKUP DRIVER Narrative 12/03/2013 10:31 AM MILK PICKUP DRIVER 03-Dec-2013 10:11:00 ??Exam: R Wrist 2vw Compression Indications: Pain Wrist NOS ORIGINAL REPORT - 03-Dec-2013 10:31:00 Right Wrist 2vw PA/Lat: Right Wrist 2vw Compression: Postoperative changes of an open reducti on internal fixation of a healed right scaphoid fracture. There is no appreciable widening of the scapholunate interval seen on the clenched fist view. Mild surro unding soft tissue swelling. Remainder u nremarkable. Electronically signed by: ?? José Wright MD [id number] 03-Dec-2013 10:31 Procedure Note Daniel Wright M.D. - 01/02/2018Forma tting of this note might be different from the original. 03-Dec-2013 10:11:00 Exam: R Wrist 2vw C ompression Indications: Pain Wrist NOS ORIGINAL REPORT - 03-Dec-2013 10:31:00 Right Wrist 2vw PA/Lat: Right Wrist 2vw Compression: Postoperative changes of an open reducti on internal fixation of a healed right scaphoid fracture. There is no appreciable widening of the scapholunate interval seen on the clenched fist view. Mild surrounding soft tissue swelling. Remainder unremark able. Electronically signed by: José Wright MD [phone] 03-Dec-2013 10:31 Beth Kang P.A.-C., M.S. IMG DIAGNOSTIC IMAGING DC OCEDURES DX Wrist 2 Views (12/03/2013 10:11 AM MILK PICKUP DRIVER) Anatomical Region Laterality Modality Radiographic Imaging Specimen (Source) Anatomical Collection Method Collection Time Re ceived Time Location / / Volume Laterality 12/03/2013 10:11 AM MILK PICKUP DRIVER Narrative 12/03/2013 10:31 AM MILK PICKUP DRIVER 03-Dec-2013 10:11:00 ??Exam: R Wrist 2vw PA/Lat Indications: Pain Wrist NOS ORIGINAL REPORT - 03-Dec-2013 10:31:00 Right Wrist 2vw PA/Lat: Right Wrist 2vw Compression: Postoperative changes of an open reducti on internal fixation of a healed right scaphoid fracture. There is no appreciable widening of the scapholunate interval seen on the clenched fist view. Mild surro unding soft tissue swelling. Remainder u nremarkable. Electronically signed by: ?? José Wright MD [id number] 03-Dec-2013 10:31 Procedure Note Daniel Wright M.D. - 01/02/2018Forma tting of this note might be different from the original. 03-Dec-2013 10:11:00 Exam: R Wrist 2vw P A/Lat Indications: Pain Wrist NOS ORIGINAL REPORT - 03-Dec-2013 10:31:00 Right Wrist 2vw PA/Lat: Right Wrist 2vw Compression: Postoperative changes of an open reducti on internal fixation of a healed right scaphoid fracture. There is no appreciable widening of the scapholunate interval seen on the clenched fist view. Mild surrounding soft tissue swelling. Remainder unremark able. Electronically signed by: José Wright MD [id number] 03-Dec-2013 10:31 Beth Kang P.A.-C. M.SAlice IMG DIAGNOSTIC IMAGING DC OCEDURES DX Wrist 2 Views (04/02/2013 1:18 PM CDT) Anatomical Region Laterality Modality Radiographic Imaging Specimen (Source) Anatomical Collection Method Collection Time Re ceived Time Location / / Volume Laterality 04/02/2013 1:18 PM CDT Narrative 04/02/2013 1:20 PM CDT 02-Apr-2013 13:18:00 ??Exam: R Wrist 2vw PA/Lat Indications: Pain Wrist NOS ORIGINAL REPORT - 02-Apr-2013 13:20:00 Right Wrist 2vw PA/Lat: Screw fixation across a radiographically united fracture of the right scaphoid waist. No hardware failure. No avascular necrosis. Slightly widened scapholunate interval. Electronically signed by: ?? Akilah ??Connor [place]. ??[phone] 02-Apr-2013 13:20 Procedure Note Brock Ryan M.D. - 01/02/2018Format ting of this note might be different from the original. 02-Apr-2013 13:18:00 Exam: R Wrist 2vw P A/Lat Indications: Pain Wrist NOS ORIGINAL REPORT - 02-Apr-2013 13:20:00 Right Wrist 2vw PA/Lat: Screw fixation across a radiographically united fracture of the right scaphoid waist. No hardware failure. No avascular necrosis. Slightly widened scapholunate interval. Electronically signed by: Akilah Ryan MD. [phone] 02-Apr-2013 13:2 0 Melvin [facility] DIAGNOSTIC IMAGING PROCE DURES DX Wrist 2 Views (02/09/2013 9:53 AM CDT) Anatomical Region Laterality Modality Radiographic Imaging Specimen (Source) Anatomical Collection Method Collection Time Re ceived Time Location / / Volume Laterality 02/09/2013 9:53 AM CDT Narrative 02/09/2013 9:55 AM CDT 09-Feb-2013 09:53:00 ??Exam: R Wrist 2vw PA/Lat Indications: Pain Wrist NOS ORIGINAL REPORT - 09-Feb-2013 09:55:00 Right Wrist 2vw PA/Lat: Screw fixation across a healing fracture of the right scaphoid waist. The fracture line is less conspicuous when compared to 01/12/2013. Electronically signed by: ?? Radha ??Stephanie [place] ??[phone] 09-Feb-2013 09:55 Procedure Note Wilda Brown M.D. - 01/02/2018Form atting of this note might be different from the original. 09-Feb-2013 09:53:00 Exam: R Wrist 2vw P A/Lat Indications: Pain Wrist NOS ORIGINAL REPORT - 09-Feb-2013 09:55:00 Right Wrist 2vw PA/Lat: Screw fixation across a healing fracture of the right scaphoid waist. The fracture line is less conspicuous when compared to 01/12/2013. Electronically signed by: Radha Brown MD [id number] 09-Feb-2013 09:5 5 Melvin Huerta M.D. IM DIAGNOSTIC IMAGING PROCE GONZALO DX Wrist 3+ Views (01/12/2013 10:40 AM CDT) Anatomical Region Laterality Modality Radiographic Imaging Specimen (Source) Anatomical Collection Method Collection Time Re ceived Time Location / / Volume Laterality 01/12/2013 10:40 AM CDT Narrative 01/12/2013 10:41 AM CDT 12-Jan-2013 10:40:00 ??Exam: R Wrist 4vw PA/Lat/Navicular Indications: Rt Scaphoid Fx ORIGINAL REPORT - 12-Jan-2013 10:41:00 Right Wrist 3vw PA/Lat/Navicular: Headless screw fixation of a healing sca phoid waist fracture. The fracture line appears less conspicuous than on December 17, 2012. Electronically signed by: ?? Mami Pereira MD [phone] 12-Jan-2013 10:41 Procedure Note Vincent Pereira M.D. - 01/02/2018For matting of this note might be different from the original. 12-Jan-2013 10:40:00 Exam: R Wrist 4vw P A/Lat/Navicular Indications: Rt Scaphoid Fx ORIGINAL REPORT - 12-Jan-2013 10:41:00 Right Wrist 3vw PA/Lat/Navicular: Headless screw fixation of a healing sca phoid waist fracture. The fracture line appears less conspicuous than on December 17, 2012. Electronically signed by: Mami Pereira MD [phone] 12-Jan-2013 10:41 Melvin [facility] DIAGNOSTIC IMAGING PROCE DURES DX Wrist 3+ Views (12/17/2012 9:43 AM CDT) Anatomical Region Laterality Modality Radiographic Imaging Specimen (Source) Anatomical Collection Method Collection Time Re ceived Time Location / / Volume Laterality 12/17/2012 9:43 AM CDT Narrative 12/17/2012 9:47 AM CDT 17-Dec-2012 09:43:00 ??Exam: R Wrist 4vw PA/Lat/Navicular Indications: c/c, right, fx ORIGINAL REPORT - 17-Dec-2012 09:47:00 Right Wrist 3vw PA/Lat/Navicular: Since 12/01/2012, a screw has been placed across a transverse fracture of the right scaphoid waist. Remainder of the exam is negative. Electronically signed by: ?? Zane Glynn ?? [id number] 17-Dec-2012 09:47 Procedure Note Jsohua Glynn M.D. - 01/02/2018Formatti ng of this note might be different from the original. 17-Dec-2012 09:43:00 Exam: R Wrist 4vw P A/Lat/Navicular Indications: c/c, right, fx ORIGINAL REPORT - 17-Dec-2012 09:47:00 Right Wrist 3vw PA/Lat/Navicular: Since 12/01/2012, a screw has been placed across a transverse fracture of the right scaphoid waist. Remainder of the exam is negative. Electronically signed by: Zane Glynn MD [id number] 17-Dec-2012 09:47 Melvin [facility] DIAGNOSTIC IMAGING PROCE DURES FL Fluoro More Than 1 Hour (12/03/2012 6:01 PM MILK PICKUP DRIVER) Anatomical Region Laterality Modality Radiographic Imaging Specimen (Source) Anatomical Collection Method Collection Time Re ceived Time Location / / Volume Laterality 12/03/2012 6:01 PM MILK PICKUP DRIVER Narrative 12/03/2012 6:24 PM MILK PICKUP DRIVER 03-Dec-2012 18:01:00 ??Exam: Fluoro Assistance greater >1hr Indications: OR 504, ortho, right wrist fracture, ORIF, OEC #60 ORIGINAL REPORT - 03-Dec-2012 18:09:00 Mobile fluoro-intensifier was used durin g screw fixation of the scaphoid. Electronically signed by: ?? Jeremy Song MD [phone] 03-Dec-2012 18 :09 I have reviewed the films/images and agr ee with the above interpretation. Electronically signed by: ?? Zane Glynn ?? [id number] 03-Dec-2012 18:24 Procedure Note Joshua Glynn M.D. - 01/02/2018Formatti ng of this note might be different from the original. 03-Dec-2012 18:01:00 Exam: Fluoro Assist ance greater >1hr Indications: OR 504, ortho, right wrist fracture, ORIF, OEC #60 ORIGINAL REPORT - 03-Dec-2012 18:09:00 Mobile fluoro-intensifier was used durin g screw fixation of the scaphoid. Electronically signed by: Jeremy Song MD [phone] 03-Dec-2012 18 :09 I have reviewed the films/images and agr ee with the above interpretation. Electronically signed by: Zane Glynn MD [id number] 03-Dec-2012 18:24 Melvin Huerta M.D. IMBob FLUOROSCOPY PROCEDURES CT Upper Extremity without IV Contrast (12/02/2012 1:49 PM MILK PICKUP DRIVER) Anatomical Region Laterality Modality Upper Extremity Computed Tomography Specimen (Source) Anatomical Collection Method Collection Time Re ceived Time Location / / Volume Laterality 12/02/2012 1:49 PM MILK PICKUP DRIVER Narrative 12/02/2012 2:13 PM MILK PICKUP DRIVER 02-Dec-2012 13:49:00 ??Exam: R CT EXT UPPER wo Indications: Cast room - CT RUE -r/o sca phoid FX ORIGINAL REPORT - 02-Dec-2012 14:13:00 EXAM: CT scan of the Right Upper Extremi ty (wrist) without IV contrast: FINDINGS: Nondisplaced transverse fractu re through the waist of the scaphoid. Scattered benign cysts near the fracture line. No evidence of sclerosis to suggest AVN. No additional fractures. Accessory o ssicle dorsal to the scaphocapitate join t. Moderate wrist effusion and/or synovitis. Overlying cast material. [id number] Electronically signed by: ?? Mami Rubalcava MD. [phone] 02-Dec-2012 14:13 ?José Vides MD [phone] 02-Dec-2012 14:13 Procedure Note Tomas Rubalcava M.D. - 01/02/2018Forma tting of this note might be different from the original. 02-Dec-2012 13:49:00 Exam: R CT EXT UPPE R wo Indications: Cast room - CT RUE -r/o sca phoid FX ORIGINAL REPORT - 02-Dec-2012 14:13:00 EXAM: CT scan of the Right Upper Extremi ty (wrist) without IV contrast: FINDINGS: Nondisplaced transverse fractu re through the waist of the scaphoid. Scattered benign cysts near the fracture line. No evidence of sclerosis to suggest AVN. No additional fractures. Accessory ossicle dorsal to the scaphocapitate joint. Mode rate wrist effusion and/or synovitis. Overlying cast material. [id number] Electronically signed by: Mami Rubalcava MD. [id number] 02-Dec-2012 14:13 José Vides MD [phone] 02-Dec-2012 14:13 Melvin Huerta M.D. Bob CT PROCEDURES DX Wrist 3+ Views (12/01/2012 9:23 AM MILK PICKUP DRIVER) Anatomical Region Laterality Modality Radiographic Imaging Specimen (Source) Anatomical Collection Method Collection Time Re ceived Time Location / / Volume Laterality 12/01/2012 9:23 AM MILK PICKUP DRIVER Narrative 12/01/2012 9:53 AM MILK PICKUP DRIVER 01-Dec-2012 09:23:00 ??Exam: R Wrist 5vw PA/Lat/Obl/Navicul Indications: Pain Hand R ORIGINAL REPORT - 01-Dec-2012 09:53:00 Right Wrist 4vw PA/Lat/Obl/Navicular: COMPARISON: 10/27/2012 and 10/17/2012. FINDINGS: Transverse fracture through th e scaphoid waist is now apparent. Remainder of the exam is unremarkable. [id number] Electronically signed by: ?? M.S. ??Connor [place]. ??[phone] 01-Dec-2012 09:53 ?Rayshawn Cleveland MD [phone] 01-Dec-2012 09:53 Procedure Note Brock Ryan M.D. - 01/02/2018Format ting of this note might be different from the original. 01-Dec-2012 09:23:00 Exam: R Wrist 5vw P A/Lat/Obl/Navicul Indications: Pain Hand R ORIGINAL REPORT - 01-Dec-2012 09:53:00 Right Wrist 4vw PA/Lat/Obl/Navicular: COMPARISON: 10/27/2012 and 10/17/2012. FINDINGS: Transverse fracture through th e scaphoid waist is now apparent. Remainder of the exam is unremarkable. [id number] Electronically signed by: Akilah Ryan MD. [phone] 01-Dec-2012 09:5 3 Rayshawn Cleveland MD [phone] 01-Dec-2012 09:53 Mami Schmidt P.A.-C.S., M.P.A. IMG DIAGNOSTIC IM AGING PROCEDURES DX Wrist 3+ Views (10/27/2012 9:49 AM MILK PICKUP DRIVER) Anatomical Region Laterality Modality Radiographic Imaging Specimen (Source) Anatomical Collection Method Collection Time Re ceived Time Location / / Volume Laterality 10/27/2012 9:49 AM MILK PICKUP DRIVER Narrative 10/27/2012 9:50 AM MILK PICKUP DRIVER 27-Oct-2012 09:49:00 ??Exam: R Wrist 5vw PA/Lat/Obl/Navicul Indications: Pain Hand R ORIGINAL REPORT - 27-Oct-2012 09:50:00 Right Wrist 4vw PA/Lat/Obl/Navicular: Negative right wrist. Electronically signed by: ?? Brett Canada M.D. [phone] 27-Oct-2012 09:50 Procedure Note Behzad Canada M.D. - 01/02/2018Format ting of this note might be different from the original. 27-Oct-2012 09:49:00 Exam: R Wrist 5vw P A/Lat/Obl/Navicul Indications: Pain Hand R ORIGINAL REPORT - 27-Oct-2012 09:50:00 Right Wrist 4vw PA/Lat/Obl/Navicular: Negative right wrist. Electronically signed by: Brett Canada M.D. [id number] 27-Oct-2012 09:50 Rabia Aquino P.A.-C., M.S., M.P.A. IMG DIAGNOSTIC IM AGING PROCEDURES DX Wrist 3+ Views (10/17/2012 7:01 PM MILK PICKUP DRIVER) Anatomical Region Laterality Modality Radiographic Imaging Specimen (Source) Anatomical Collection Method Collection Time Re ceived Time Location / / Volume Laterality 10/17/2012 7:01 PM MILK PICKUP DRIVER Narrative 10/17/2012 8:24 PM MILK PICKUP DRIVER 17-Oct-2012 19:01:00 ??Exam: R Wrist 4vw PA/Lat/Navicular Indications: fall, r/o fx ORIGINAL REPORT - 17-Oct-2012 19:11:00 Right Wrist 3vw PA/Lat/Navicular: No evidence of acute fracture or disloca tion. Mild soft tissue swelling about the right wrist. Electronically signed by: ?? José Vides MD [phone] 17-Oct-2012 19:11 I have reviewed the films/images and agr ee with the above interpretation. Electronically signed by: ?? Rayshawn Moore MD [phone] 17-Oct-2012 20:2 4 Procedure Note Aleksandar Moore M.D. - 01/02/2018Formatti ng of this note might be different from the original. 17-Oct-2012 19:01:00 Exam: R Wrist 4vw P A/Lat/Navicular Indications: fall, r/o fx ORIGINAL REPORT - 17-Oct-2012 19:11:00 Right Wrist 3vw PA/Lat/Navicular: No evidence of acute fracture or disloca tion. Mild soft tissue swelling about the right wrist. Electronically signed by: José Vides MD [phone] 17-Oct-2012 19:11 I have reviewed the films/images and agr ee with the above interpretation. Electronically signed by: Rayshawn Moore MD [phone] 17-Oct-2012 20:2 4 Nancy Meadows P.A.-C. IMG DIAGNOSTIC IMAGING PROC EDURES documented in this encounter Visit Diagnoses Not on filedocumented in this encounter
--- NOTE | 2022-08-22 13:39 | W.PM.SLEEP ---
Sleep Study Details Details Interpreting Provider: Lui Steen MD Date of Sleep Study: 08/06/22 Sleep Study Details: STUDY TYPE:? Hospital ? BMI:? 35.3 ORDERING PROVIDER:? Maxi INDICATION:? Concerns about sleep apnea ? SLEEP SUMMARY:? Total sleep time 258 minutes, efficiency 51.8, latency 72.5 RESPIRATORY SUMMARY:? Mean oxygen awake 95 asleep 95 minimum 82.1 minutes oxygen between 80 and 88% AHI 15.1, RDI 17.7, REM AHI 70.6 Supine AHI 5 there was no supine REM sleep seen PERIODIC LIMB MOVEMENTS OF SLEEP:? None CARDIAC:? Awake 72 asleep 68 occasional PVCs noted IMPRESSION:? Moderate obstructive sleep apnea with significant REM dependency RECOMMENDATION: AutoSet CPAP pressure 4-17. Weight loss is also recommended
== END 2022-08-06 21:02 | disposition home or self-care (01) ==
PROVIDERS: PCP Nurse Practitioner Family; Visit Provider Nurse Practitioner Family
DX: G47.33 Obstructive sleep apnea (adult) (pediatric) (principal)
CPT/HCPCS: 95810

== ENCOUNTER 2024-05-06 10:19 | Outpatient (CLI) | payer OTHER, SELFPAY ==
--- OUTSIDE RECORDS SUMMARY | 2024-05-06 10:23 | XMS_ITS | Referral Summary ---
Author Organization [facility] Address [address] [place] [address] Care Team Providers Care Line Analyst Name Role Phone Rody Washburn APRN, C.N.P., D.N.P. Primary Care Provider Source Comments Patient records contain information from all sites at [facility]. For routine questions regarding patient records, call [phone] during business hours, M-F 8:00 AM - 5:00 PM Central Time. Record requests for emergency care only can be directed to [phone] at any time.[facility] Allergies No known active allergies Medications Medication Sig Dispensed Refills Start Date End Date Status esomeprazole (NexIUM) [address] capsule Take 1 tablet by mouth daily. 12/18/2010 Active amoxicillin-pot clavulanate (AUGMENTIN) 875-125 mg per tablet 02/22/2022 Active traMADoL (ULTRAM) 50 mg tablet Take 50 mg by mouth every 6 (six) hours as needed. 11/30/2010 Active polyethylene glycol-electrolytes (GoLYTELY) 236-22.74-6.74 -5.86 gram solution 05/28/2022 Active omeprazole (PriLOSEC) [address] capsule TAKE 1 CAPSULE BY MOUTH DAILY 90 capsule 3 08/07/2023 Active Active Problems Problem Noted Date Diagnosed Date Tear Hip Labral Initial Right 07/09/2018 Pain Hip Right 02/28/2015 Overview (07/09/2018): Right hip borderline dysplasia. Femoroacetabular impingement. Gastroesophageal Reflux Disease Without Esophagi tis 07/29/2012 Immunizations Name Administration Dates Next Due Anthrax 08/17/2009 H1N1 Inj 08/19/2009 HepA / HepB 11/12/2005 HepA Adult 07/12/2007 HepB Adult 07/12/2007 IPV 10/10/2005 Influenza (IM) Preservative Free 07/08/2016,10/07,07/29/2012 Influenza Split 07/07/2017, 4,08/18/2013,2009 Influenza TIV (IM) 07/09/2016 Influenza, Injectable, Quadrivalent 07/16/2018,1 Influenza, Seasonal, Injectable 07/11/2015,07/26,07/06/2013 Influenza, Unspecified 07/20/2020,2017,09/11/2013,2009 MPSV4 10/10/2005 PPSV23 10/27/2012 Smallpox 01/30/2009 Td, (Adult) Unspecified 10/06/2008,10/10/2005 Tdap 07/29/2012 TyVi (inj) 01/18/2009 CHARI 10/06/1988 influenza LAIV (Nasal) (2 ye ars through 49 years) 11/23/2008 influenza high dose (65 year s or older) (PF) 07/07/2017,07/30/2014,08/18/2013 influenza vaccine quad (FLUZONE/FLUARIX) (6 months and older)(PF) 06/22/2020,07/15/2019 Social History Tobacco Use Types Packs/Day Years Used Date Smoking Tobacco: Former Smokeless Tobacco: Never Tobacco Cessation:Counseling Given: Not Answered Alcohol Use Standard Drinks/Week Comments Yes 0 (1 standard drink = 0.6 oz pur e alcohol) 20 drinks weekly Humiliation, Afraid, Rape, and Kick questionnair e Answer Date Recorded Within the last year, have y ou been afraid of your partner or ex-partner? No 03/14/2021 Within the last year, have y ou been humiliated or emotionally abused in other ways by your partner or ex-partner? No Within the last year, have y ou been kicked, hit, slapped, or otherwise physically hurt by your partner or ex-partner? No 03/14/2021 Within the last year, have y ou been raped or forced to have any kind of sexual activity by your partner or ex-partner? No 03/14/2021 Social Connection and Isolat ion Panel [NHANES] Answer Date Recorded In a typical week, how many times do you talk on the phone with family, friends, or neighbors? Twice a week 03/14/2021 How often do you get togethe r with friends or relatives? Once a week 03/14/2021 How often do you attend chur ch or anabaptist services? Never 03/14/2021 Do you belong to any clubs o r organizations such as presybeterian groups, unions, fraternal or athletic groups, or school groups? Yes 03/14/2021 How often do you attend meet ings of the clubs or organizations you belong to? More than 4 times per year 03/14/2021 Are you , , di vorced, , never , or living with a partner? 03/14/2021 AUDIT-C Answer Date Recorded Q1: How often do you have a drink containing alcohol? 4 or more times a week 03/14/2021 Q2: How many drinks containi ng alcohol do you have on a typical day when you are drinking? 3 or 4 Q3: How often do you have si x or more drinks on one occasion? Never 03/14/2021 Overall Financial Resource Strain (CARDIA) Answe r Date Recorded How hard is it for you to pa y for the very basics like food, housing, medical care, and heating? Not very hard 03/14/2021 PHQ-2 Answer Date Recorded PHQ-2 Score 0 03/15/2021 [facility] - Occupational Stress Questionnaire Answer Date Recorded Do you feel stress - tense, restless, nervous, or anxious, or unable to sleep at night because your mind is troubled all the time - these days? Only a little 03/14/2021 Exercise Vital Sign Answer Date Recorde d On average, how many days pe r week do you engage in moderate to strenuous exercise (like a brisk walk)? 4 days 03/14/2021 On average, how many minutes do you engage in exercise at this level? 60 min 03/14/2021 Hunger Vital Sign Answer Date Recorded Within the past 12 months, y ou worried that your food would run out before you got the money to buy more. Never true 03/14/20 21 Within the past 12 months, t he food you bought just didn't last and you didn't have money to get more. Never true 03/14/2021 PRAPARE - Transportation Answer Date Re corded In the past 12 months, has l ack of transportation kept you from medical appointments or from getting medications? No 06/2021 In the past 12 months, has l ack of transportation kept you from meetings, work, or from getting things needed for daily living? No 03/14/2021 Housing Stability Vital Sign Answer Clint e Recorded In the last 12 months, was t here a time when you were not able to pay the mortgage or rent on time? No 03/14/2021 In the last 12 months, how many places have you lived? 1 03/14/2021 In the last 12 months, was t here a time when you did not have a steady place to sleep or slept in a group home (including now)? No 03/14/2021 Nutrition Answer Date Recorded Nutrition: EVOO Fat Source No 03/14 On average, how many serving s of fruits and vegetables do you eat per day (serving size is equal to 1 cup or approximately the size of a tennis ball)? 0-1 03/14/2021 Dental Answer Date Recorded Dental: Regular Dentist Unknown 03/14/20 24 Employment Answer Date Recorded Employment status Employed and actively working without restrictions 03/14/2021 Education Answer Date Recorded What is the highest level of school you have completed or the highest degree you have received? Master's degree (e.g., MA, MS, [place], MEd, DOG HANDLER, LAURA) 03/14/2021 Sex and Gender Information Value Date Recorded Sex Assigned at Not on file Gender Identity Male 03/14/2021 9:46 PM CDT Sexual Orientation Straight 03/14/2021 9: 46 PM CDT Last Filed Vital Signs Vital Sign Reading Time Taken Comments Blood Pressure 138/89 06/14/2021 10:05 AM CDT Pulse 68 06/14/2021 10:05 AM CDT Temperature 36.2 ??C (97.1 ??F) 02/24/2023 3:27 PM CD T Respiratory Rate 16 06/14/2021 10:05 AM CDT Oxygen Saturation 98% 06/14/2021 10:05 AM CDT Inhaled Oxygen Concentration - - Weight 105 kg (231 lb 7.7 oz) 02/24/2023 3:27 PM CDT Height 173.6 cm (5' 8.35) 02/24/2023 3:27 PM CD T Body Mass Index 34.84 02/24/2023 3:27 PM CDT Plan of Treatment Not on file Medical Devices Implanted Type Area Handkerchief Folder Device Identifier Shelf Expiration Date Model / Serial / Lot Trimed-Screw Magalie. 2.3mm X 22mm - [employer] [id number] Implanted:Qty: 1 on 12/03/2012 Hardware e.g. pins/screws/ rods [employer] Description:Device Manufactu rer - [employer] Device Status Text - [id number]. Trimed K-Wire 0.8 120mm - [place] [id number] Implanted:Qty: 4 on 12/03/2012 Hardware e.g. pins/screws/ rods [employer] Description:Device Manufactu rer - [employer].. Device Status Text - [id number]. Trimed-Screw Magalie. 2.3mm X 24mm - [employer] [id number] Implanted:Qty: 1 on 12/03/2012 Hardware e.g. pins/screws/ rods [employer] Description:Device Manufactu rer - [employer].. Device Status Text - [id number]. Self Tap-Screw 4.5 X 100 - [place] [id number] Implanted:Qty: 1 on 08/25/2017 Hardware e.g. pins/screws/ rods [employer] Description:Device Manufactu rer - [employer]. Device Status Text - [id number]. Self Tap-Screw 4.5 X 64 - [place] [id number] Implanted:Qty: 1 on 08/25/2017 Hardware e.g. pins/screws/ rods [employer] Description:Device Manufactu rer - [employer]. Device Status Text - [id number]. Self Tap-Screw 4.5 X 76 - [place] [id number] Implanted:Qty: 1 on 08/25/2017 Hardware e.g. pins/screws/ rods [employer] Description:Device Manufactu rer - [employer]. Device Status Text - [id number]. Care Teams Line Analyst Relationship Specialty Start Date End Date Rody Washburn APRN, C.N.P., D.N.P. [address] [place] [phone] PCP - General 05/07/19
--- OUTSIDE RECORDS SUMMARY | 2024-05-06 10:23 | XMS_ITS | Continuity of Care Document ---
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 It does not include entries that were removed or entered in error. Problem Status Onset Date Problem Type Date of Resolution Comments Source visit for: screening exam depression Inactive 07/26/20 11 Condition DoD Myopia, bilateral Active 10/03/18 99 Condition [facility] Regular astigmatism, bilateral Active 10/03/18 99 Condition [facility] Adjustment Disorder with Anxiety (ICD-9-CM 309.24) Active Condition [facility] Concussion W/O Coma Active Condition [facility] Gastroesophageal Reflux Disorder * (ICD-9-CM 530.81) Active Condition [facility] Headaches * (ICD-9-CM 784.0) Active Condition [facility] Pain in joint involving shoulder region (ICD-9-CM 719.41) Active Condition [facility] Psychological factors affecting other physical condition (ICD-9-CM 316./V62.89) Active Condition [facility] visit for: services physical Active Condition [facility] tendonitis bicipital left Active Condition DoD epistaxis Inactive Condition [facility] joint pain, localized in the left shoulder Active Condition [facility] assessment of patient condition work status Inactive Condition DoD blepharitis Inactive Condition DoD gastroenteritis Inactive Condition DoD visit for: examination of subpopulation Inactive Condition DoD astigmatism Inactive Condition DoD refractive error - myopia Inactive Condition [facility] Medications Combined list of outpatient medications from Department of Defense and Veterans Affairs facilities.Medications provided include 1) outpatient medications from the last 15 months, and 2) patient-reported medications. Medication Details Route Status Patient Instructions Prescription Expires Prescription Number Last Dispense Date Ordering Provider Order Date Order Qty Source CYCLOBENZAP RINE HCL (cyclobenza janelle HCl), 10 MG, TABLET, ORAL, [facility], 1000 ea. BOTTLE Active [id number] 4 2023 30 Pharmac y Data Transac tion Service Facilit y ESOMEPRAZOL E MAGNESIUM 40MG CAP,EC ESOMEPRA ZOLE MAGNESIU M 40MG CAP,EC Non-VA TAKE 1 CAPSULE BY MOUTH EVERY DAY Dec 18, 2010 Non-VA Document ed by: JOSEPH SUE A Document ed at: [facility] ORAL ACTIVE NENA SUE ER A 2010 MARLYN JEREZ [facility] HYDROCODONE -ACETAMINOP HEN (HYDROCODON E/ACETAMINO PHEN), 5MG-325MG, TABLET, ORAL, MALLINCKROD T PH, 500 ea. BOTTLE Active [id number] 2023 21 Pharmac y Data Transac tion Service Facilit y METHYLPREDN ISOLONE (methylpred nisolone), 4 MG, TAB DS PK, ORAL, ZYDUS PHARMACEU, 21 ea. DOSE-PACK Active [id number] 4 2023 21 Pharmac y Data Transac tion Service Facilit y OMEPRAZOLE (omeprazole ), 20 MG, CAPSULE DR, ORAL, TRIRIGA, 1000 ea. BOTTLE Active [id number] 4 2023 90 Pharmac y Data Transac tion Service Facilit y OMEPRAZOLE (OMEPRAZOLE ), 20MG, CAPSULE DR, ORAL, 'S LAB, 1000 ea. BOTTLE Active [id number] 4 2023 90 Pharmac y Data Transac tion Service Facilit y Allergies, Adverse Reactions, Alerts Combined list of allergies from Department of Defense and Veterans Affairs facilities. It does not include entries that were removed or entered in error. Substance Category Reaction Severity Reaction type Status Date Reported Comments Source No Known Allergies Drug allergy (disorder) active 12/08/2018 Nawaf Santos [facility] Immunizations Combined list of available immunizations from the Department of Defense and Veterans Affairs facilities. Immunization Series Date Given Administered By Site Reaction Lot Number CVX Code Drug Chemical Maker Status Comments Source COVID-19, mRNA, LNP-S, PF, 100 mcg or 50 mcg dose 2020 REECE MAYEN () Not Given COVID-19, mRNA, LNP-S, PF, 100 mcg or 50 mcg dose [facility] Influenza, injectable, quadrivalent, preservative free 1 2018 [id number] 150 Transcribed (TRS) complet ed Influenza , injectabl e, quadrival ent, preservat michael free DoD Influenza, injectable, quadrivalent, preservative free 1 2018 [id number] 150 Seqirus (SEQ) complet ed Influenza , injectabl e, quadrival ent, preservat michael free DoD influenza virus vaccine, unspecified formulation 1 2017 UNK 88 Unknown (UNK) comple t ed influenza virus vaccine, unspecifi ed formulati on DoD influenza, injectable, quadrivalent, contains preservative 1 2016 [id number] 158 Seqirus (SEQ) comple t ed influenza , injectabl e, quadrival ent, contains preservat michael DoD Influenza, seasonal, injectable 1 2015 [id number] 141 Seqirus (SEQ) comple t ed Influenza , seasonal, injectabl e DoD Influenza, seasonal, injectable 1 2015 [id number] 141 Novartis Pharmaceutica l Preeti. (NOV) complet ed Influenza , seasonal, injectabl e DoD measles, mumps and rubella virus vaccine 2 2014 UNK 03 Unknown (UNK) Not Given measles, mumps and rubella virus vaccine DoD varicella virus vaccine 1 2014 UNK 21 Unknown (UNK) Not Given varicella virus vaccine DoD Influenza, injectable, quadrivalent, preservative free 1 2013 [id number] 150 Unknown (UNK) comple t ed Influenza , injectabl e, quadrival ent, preservat michael free DoD Influenza, injectable, Madin Grace Canine Kidney, preservative free 1 2012 [id number] 153 Novartis Pharmaceutica l Preeti. (NOV) complet ed Influenza , injectabl e, Madin Orlando Canine Kidney, preservat michael free DoD tetanus toxoid, reduced diphtheria toxoid, and acellular pertu is vaccine, adsorbed 1 2011 [id number] Sanofi Pasteur (PMC) complet ed tetanus toxoid, reduced diphtheri a toxoid, and acellular pertussis vaccine, adsorbed DoD Influenza, seasonal, injectable, preservative free 1 2011 [id number] 140 [employer] (SKB) complet ed Influenza , seasonal, injectabl e, preservat michael free DoD Influenza, seasonal, injectable, preservative free 1 2010 [id number] 140 [employer]. (MED) complet ed Influenza , seasonal, injectabl e, preservat michael free DoD INFLUENZA, UNSPECIFIED FORMULATION 2009 88 [facility] influenza virus vaccine, split virus (incl. purified surface antigen)-reti red CODE 1 2009 [id number] [facility] [employer] Inc[employer] (CSL) complet ed influenza virus vaccine, split virus (incl. purified surface antigen)- retired CODE DoD Novel influenza-H1N 1-09, injectable 1 2008 [id number] 127 Novartis StockLayouts. (NOV) complet ed Novel influenza -F8P2-77, injectabl e DoD anthrax vaccine 3 2008 [id number] 24 Unknown (UNK) comple t ed anthrax vaccine DoD influenza virus vaccine, split virus (incl. purified surface antigen)-reti red CODE 1 2008 [id number] 15 Sanofi Pasteur (PMC) complet ed influenza virus vaccine, split virus (incl. purified surface antigen)- retired CODE DoD anthrax vaccine 2 2008 [id number] 24 [employer] [place] ([facility]) complet ed anthrax vaccine DoD vaccinia (smallpox) vaccine 1 2008 [id number] 75 Unknown (UNK) complet ed vaccinia (smallpox ) vaccine DoD anthrax vaccine 1 2008 [id number] 24 [facility] ([facility]) complet ed anthrax vaccine DoD typhoid Vi capsular polysaccharid e vaccine 1 2008 [id number] Sanofi Pasteur ([facility]) complet ed typhoid Vi capsular polysacch aride vaccine DoD influenza virus vaccine, live, attenuated, for intranasal use 1 2008 [id number] 111 Unknown (UNK) comple t ed influenza virus vaccine, live, attenuate d, for intranasa l use DoD TD(ADULT) UNSPECIFIED FORMULATION 2008 139 complet [employer] influenza virus vaccine, live, attenuated, for intranasal use 1 2007 [id number] 111 [employer] (MED) complet ed influenza virus vaccine, live, attenuate d, for intranasa l use DoD hepatitis B vaccine, adult dosage 3 2006 [id number] 43 [employer] (SKB) complet ed hepatitis B vaccine, adult dosage DoD hepatitis A vaccine, adult dosage 3 2006 [id number] 52 SmithKline (SKB) complet ed hepatitis A vaccine, adult dosage DoD hepatitis A and hepatitis B vaccine 2 2005 [id number] 104 [employer]line (SKB) complet ed hepatitis A and hepatitis B vaccine DoD measles, mumps and rubella virus vaccine 1 2005 [id number] Merck (MSD) complet ed measles, mumps and rubella virus vaccine DoD tetanus and diphtheria toxoids, adsorbed, preservative free, for adult use (2 Lf of tetanus toxoid and 2 Lf of diphtheria toxoid) 1 2005 [id number] 09 Sanofi Pasteur (PMC) complet ed tetanus and diphtheri a toxoids, adsorbed, preservat michael free, for adult use (2 Lf of tetanus toxoid and 2 Lf of diphtheri a toxoid) DoD poliovirus vaccine, inactivated 1 2005 [id number] 10 Sanofi Pasteur (PMC) complet ed polioviru s vaccine, inactivat ed DoD meningococcal polysaccharid e vaccine (MPSV4) 1 2005 [id number] 32 Sanofi Pasteur (PMC) complet ed meningoco ccal polysacch aride vaccine (MPSV4) DoD hepatitis A and hepatitis B vaccine 1 2005 [id number] 0BA 104 [employer]Kline (SKB) complet ed hepatitis A and hepatitis B vaccine DoD influenza virus vaccine, live, attenuated, for intranasal use 1 2005 [id number] 111 [employer] (MED) complet ed influenza virus vaccine, live, attenuate d, for intranasa l use DoD Encounters Combined list of: 1) Encounters from Department of Veterans Affairs facilities going back up to thelast 18 months. 2) Encounters from the Department of Defense facilities going back up to 280 months. Location Location Details Encounter Type Encounter Number Reason For Visit Attending Provider ADM Date DC Date Status Disposition Source [facility] David Baker [facility] Teresa(IEP Optometry ) OUTPATIENT [id number] SEEMA TATUM 10/09 Released w/o Limitations [facility] David Baker [facility] Teresa(IEP Optomet ry) [facility] OUTPATIENT [id number] 05/27 Released w/o Limitations [facility] OUTPATIENT [id number] 11/21 Released w/o Limitations Theater [facility] OUTPATIENT [id number] 12/11 Released w/o Limitations Theater Facilit y R. JOSEPH Del Rosario(Scorpi on Team) OUTPATIENT [id number] harry staton SHANNON Sultana 07/25 Released w/o Limitations JOSEPH Addison(Scor pion Team) JSOEPH Falk(Scorpi on Team) OUTPATIENT [id number] umbertoJOELLE Tapia 08/12 Released with Work/Duty Limitations JOSEPH Addison(Scor pion Team) JOSEPH Falk(Optome try Clinic) OUTPATIENT [id number] [facility] UPDATE JOHN WOODARD 08/22 Released w/o Limitations JOSEPH Addison(Opto metry Clinic) JOSEPH Falk(Scorpi on Team) OUTPATIENT [id number] f/u on umbertoJOELLE Matt 09/04 Released with Work/Duty Limitations JOSEPH Addison[facility]Scor pion Team) [facility] Optometry ) OUTPATIENT [id number] old prescri p and request info about laser surgery JOCELYNE SCHWARTZ 12/08 Released w/o Limitations [facility] Optomet ry) [facility] Red) OUTPATIENT [id number] mha/430 [id number] LEOBAROD GRESHAM 03/17 Released w/o Limitations [facility] Red) [facility] Green) OUTPATIENT [id number] pha/430 [id number] ROGELIO KENDRICK 03/18 Released w/o Limitations [facility]) [facility] Hearing Conservat ion) OUTPATIENT [id number] Notes Entered by: JUDAH OVERTON 18 Mar 2019 0957 ------- ------- ------- ------- -- Audiogr am JUDAH HUERTA 03/18 Released w/o Limitations [facility] Hearing Conserv ation) [facility] Blue) OUTPATIENT [id number] Notes Entered by: MEG REEVES 16 Jul 2019 0917 ------- ------- ------- ------- -- Flu late entry 019 MEG REEVES 07/16 Released w/o Limitations [facility] Blue) [facility] Optometry ) OUTPATIENT [id number] JOCELYNE JETER 08/19 Released w/o Limitations [facility] Optomet ry) [facility] Ophthalmo logy) OUTPATIENT [id number] initial consult IFRAH NGUYEN 09/22 Released w/o Limitations [facility] Ophthal mology) [facility] Ophthalmo logy) OUTPATIENT [id number] BRIEF SHANNON SQUIRES 10/26 Released w/o Limitations [facility] Ophthal mology) [facility] Ophthalmo logy) OUTPATIENT [id number] consent SHANNON SQUIRES 10/28 Released with Work/Duty Limitations [facility] Ophthal mology) [facility] Ophthalmo logy) OUTPATIENT [id number] 1 day pop lasik SHAWSHANNON 10/29 Released w/o Limitations [facility] Ophthal mology) [facility] Ophthalmo logy) OUTPATIENT [id number] 1 week pop michelleik SHAWSHANNON H 11/03 Released w/o Limitations [facility] Ophthal mology) [facility] Optometry ) OUTPATIENT [id number] f/u lasik surgery - [id number] JOCELYNE SCHWARTZ 11/30 Released w/o Limitations [facility] Optomet ry) [facility]) OUTPATIENT [id number] Sleep initial /////// LEOBARDO GRESHAM 12/08 Released w/o Limitations [facility]) [facility] Green) OUTPATIENT [id number] Notes Entered by: JUMA SANDOVAL 17 Dec 2019 1534 ------- ------- ------- ------- -- ROGELIO Ortega 12/16 Released w/o Limitations [facility]) [facility]) TELE CONSULT [id number] Notes Entered by: Manju KENDRICK 21 Dec 2019 0828 ------- ------- ------- ------- -- FLY Phillips 12/20 [facility]) [facility]) OUTPATIENT [id number] Notes Entered by: ALISE BELTRAN 19 Jan 2020 1057 ------- ------- ------- ------- -- SINGH Mendoza 01/18 Released w/o Limitations [facility]) [facility] Hearing Conservat ion) OUTPATIENT [id number] Notes Entered by: Nicholas NICHOLAS 24 Jan 2020 1411 ------- ------- ------- ------- -- audiogr am ALANIS NICHOLAS 01/23 Released w/o Limitations [facility] Hearing Conserv ation) [facility]) OUTPATIENT [id number] [facility] [phone] FRANK TRONCOSO 01/30 Released w/o Limitations [facility]) [facility]) TELE CONSULT [id number] Notes Entered by: ANN TORRES BINH 10 Feb 2020 0849 ------- ------- ------- ------- -- Referra kajal to [facility] BOBBY VENCES 02/09 [facility]) [facility]) TELE CONSULT [id number] Notes Entered by: ANN TORRES BINH 14 Feb 2020 0715 ------- ------- ------- ------- -- ReferTEJINDER Pedroza 02/13 [facility]) [facility]) OUTPATIENT [id number] Notes Entered by: TEJINDER MCALLISTER 17 Feb 2020 1014 ------- ------- ------- ------- -- care coordin ation follow up TEJINDER MCALLISTER 02/16 Released w/o Limitations [facility]) [facility]) OUTPATIENT [id number] Notes Entered by: TEJINDER MCALLISTER 23 Feb 2020 1447 ------- ------- ------- ------- -- TEJINDER Valle 02/22 Released w/o Limitations [facility]) Procedures Combined list of: 1) Procedures from Department of Veterans Affairs facilities going back up to thelast 18 months, not all VA non-surgical procedures are included; 2) All procedures from the Department of Defense facilities. Procedure Procedure Type Code Date Perfomer Comments Sour e SCREENING TEST OF VISUAL ACUITY, QUANTITATIVE, BILATERAL 011 [facility] SKIN TEST; TUBERCULOSIS, INTRADERMAL [facility] SKIN TEST; TUBERCULOSIS, INTRADERMAL [facility] IMMUNIZATION ADMINISTRATION (INCLUDES PERCUTANEOUS, INTRADERMAL, SUBCUTANEOUS, OR INTRAMUSCULAR INJECTIONS); 1 VACCINE (SINGLE OR COMBINATION VACCINE/TOXOID) [facility] HEPATITIS A AND HEPATITIS B VACCINE (HEPA-HEPB), ADULT DOSAGE, FOR INTRAMUSCULAR USE [facility] FITTING OF SPECTACLES, EXCEPT FOR APHAKIA; MONOFOCAL [facility] SKIN TEST; TUBERCULOSIS, INTRADERMAL [facility] COORDINATED CARE FEE, RISK ADJUSTED MAINTENANCE [facility] COORDINATED CARE FEE, RISK ADJUSTED MAINTENANCE [facility] SCREENING TEST OF VISUAL ACUITY, QUANTITATIVE, BILATERAL [facility] PATIENT EDUCATION, NOT OTHERWISE CLASSIFIED, NON-PHYSICIAN PROVIDER, INDIVIDUAL, PER SESSION [facility] TELE ASSESS & MGT SRV PROV QUAL NONPHYS HLTH CARE PRO TO EST PAT,PARENT,GUARD NOT ORIG REL ASSESS & MGT SRV PROV W/IN PREV 7 DAYS NOR LEAD ASSESS & MGT SRV/PX W/IN NXT 24 HR/SOON APT;5-10 MIN MED DIS [facility] BRIEF EMOTIONAL/BEHAVIORA L ASSESSMENT (EG, DEPRESSION INVENTORY, ATTENTION-DEFICIT/H YPERACTIVITY DISORDER [ADHD] SCALE), WITH SCORING AND DOCUMENTATION, PER STANDARDIZED INSTRUMENT [facility] LASER IN SITU KERATOMILEUSIS (LASIK) [facility] POSTOPERATIVE FOLLOW-UP VISIT, NORMALLY INCLUDED IN THE SURGICAL PACKAGE, INDICATE THAT EVALUATION & MANAGEMENT SERVICE WAS PERFORMED DURING A POSTOPERATIVE PERIOD REASON RELATED ORIGINAL PROCEDURE [facility] POSTOPERATIVE FOLLOW-UP VISIT, NORMALLY INCLUDED IN THE SURGICAL PACKAGE, INDICATE THAT EVALUATION & MANAGEMENT SERVICE WAS PERFORMED DURING A POSTOPERATIVE PERIOD REASON RELATED ORIGINAL PROCEDURE [facility] LASER IN SITU KERATOMILEUSIS (LASIK) [facility] OPHTHALMOLOGICAL SERVICES: MEDICAL EXAMINATION AND EVALUATION, WITH INITIATION OR CONTINUATION OF DIAGNOSTIC AND TREATMENT PROGRAM; INTERMEDIATE, ESTABLISHED PATIENT [facility] OPHTHALMIC ULTRASOUND, ECHOGRAPHY, DIAGNOSTIC; CORNEAL PACHYMETRY, UNILATERAL OR BILATERAL (DETERMINATION OF CORNEAL THICKNESS) [facility] COMPUTERIZED CORNEAL TOPOGRAPHY, UNILATERAL OR BILATERAL, WITH INTERPRETATION AND REPORT [facility] IMMUNIZATION ADMINISTRATION (INCLUDES PERCUTANEOUS, INTRADERMAL, SUBCUTANEOUS, OR INTRAMUSCULAR INJECTIONS); 1 VACCINE (SINGLE OR COMBINATION VACCINE/TOXOID) [facility] PURE TONE AUDIOMETRY (THRESHOLD), AUTOMATED; AIR ONLY [facility] SCREENING TEST OF VISUAL ACUITY, QUANTITATIVE, BILATERAL [facility] BRIEF EMOTIONAL/BEHAVIORA L ASSESSMENT (EG, DEPRESSION INVENTORY, ATTENTION-DEFICIT/H YPERACTIVITY DISORDER [ADHD] SCALE), WITH SCORING AND DOCUMENTATION, PER STANDARDIZED INSTRUMENT [facility] FITTING OF SPECTACLES, EXCEPT FOR APHAKIA; MONOFOCAL [facility] Ear mold/insert, not disposable, any type CASILLASGAXIOL JUDAH Holland Patient education, not otherwise cla ified, non-physician provider, individual, per se ion CASILLASGAXIOL AJUDAH Threshold Audiogram (Pure Tone) Automated Threshold Audiogram (Pure Tone) Automated 0208T CASVONSGAXTIMMY AJUDAH Psychometric Emotional / Behavioral A e ment Psychometric Emotional / Behavioral Assessment [id number] LEOBARDO GRESHAM [facility] Spectacles Services Fitting Monofocal Except For Aphakia Spectacles Services Fitting Monofocal Except For Aphakia [id number] JOCELYNE SCHWARTZ [facility] Ophthalmological New Patient Start Comprehensive Care Ophthalmological New Patient Start Comprehensive Care [phone] JOCELYNE SCHWARTZ [facility] Determination Of Refractive State Determination Of Refractive State [phone] JOCELYNE SCHWARTZ [facility] Screening Test Of Visual Acuity, Quantitative, Bilateral Screening Test Of Visual Acuity, Quantitative, Bilateral [phone] JOHN WOODARD [facility] WITHOUT GLASSES 20/400 OU VA WITH GLASSES 20/20 OU [facility] UPDATED 12/04 FOR VISION READINESS. [facility] Determination Of Refractive State Determination Of Refractive State [phone] ALICE TATUM Spectacles Services Fitting Monofocal Except For Aphakia Spectacles Services Fitting Monofocal Except For Aphakia [phone] ALICE TATUM Influenza Split Virus Vaccine IM With Preservative Quadrivalent 0.50mL Dosage Influenza Split Virus Vaccine IM With Preservative Quadrivalent 0.50mL Dosage 40439 MEG REEVES [facility] Immunization Administration By Injection, One Vaccine Immunization Administration By Injection, One Vaccine 67293 MEG REEVES [facility] Ophthalmological Prior Patient Start Comprehensive Care Ophthalmological Prior Patient Start Comprehensive Care 49312 SCHWARTZJOCELYNE [facility] Determination Of Refractive State Determination Of Refractive State 43821 SCHWARTZ [facility] Computerized Corneal Topography Computerized Corneal Topography 9[address]11 [facility] Ophthalmological New Patient Start Comprehensive Care Ophthalmological New Patient Start Comprehensive Care 18540 IFRAH NGUYEN [facility] Corneal Pachymetry Both Eyes Corneal Pachymetry Both Eyes 63467 IFRAH NGUYEN [facility] Laser in situ keratomileusis (LASIK) JIMBO ROJAS [facility] for surgery documents [facility] Postoperative Visit, Without Charge Postoperative Visit, Without Charge [id number] SHAWSHANNON [facility] Laser in situ keratomileusis (LASIK) JOCELYNE SCHWARTZ [facility] Behavioral health outreach service (planned approach to reach a targeted population) LEOBARDO GRESHAM [facility] Psychometric Emotional / Behavioral A e ment Psychometric Emotional / Behavioral Assessment 47674 LEOBARDO GRESHAM BHM-20, CSSRS, RIP, Printer Sleepiness scale [facility] Non-Physician Phone Call To Patient/Provider Brief (5-10min) Non-Physician Phone Call To Patient/Provider Brief (5-10min) [id number] FLY SHER [facility] Threshold Audiogram (Pure Tone) Automated Threshold Audiogram (Pure Tone) Automated 0208T ALANIS NICHOLAS [facility] Patient education, not otherwise cla ified, non-physician provider, individual, per se ALANIS Jiang [facility] Coordinated care fee, risk adjusted maintenance TEJINDER MCALLISTER [facility] Social History Combined list of available smoking, tobacco, and other social history from Department of Defense and Veterans Affairs facilities. Social History Type Response Date Comment Sourc e Tobacco smoking status NHIS LIFETIME NON-TOBACCO USER 12/18/2010 [facility] This section is an empty social history section. [facility]
--- OUTSIDE RECORDS SUMMARY | 2024-05-06 10:23 | XMS_ITS ---
Author Organization [facility] Address [address] [place] [address] Care Team Providers Care Industrial Psychology Professor Name Role Phone Unavailable Unavailable Unavailable Surgery Details Not on file Complications Check Surgery Details section. Procedure Estimated Blood Loss Check Surgery Details section. Procedure Findings Check Surgery Details section. Procedure Specimens Taken Check Surgery Details section.
--- OUTSIDE RECORDS SUMMARY | 2024-05-06 10:23 | XMS_ITS | Clinical Summary ---
Author Organization [facility] Address [address] [place] [address] Care Team Providers Care Bleacher Sulfite Pulp Name Role Phone Rody Washburn APRN, C.N.P., D.N.P. Primary Care Provider Source Comments Patient records contain information from all sites at [facility]. For routine questions regarding patient records, call [phone] during business hours, M-F 8:00 AM - 5:00 PM Central Time. Record requests for emergency care only can be directed to [phone] at any time.[facility] Allergies No known active allergies Medications Medication [...] often do you attend chur ch or adventism services? Never 03/14/2021 Do you belong to any clubs o r organizations such as yarsanism groups, unions, fraternal or [...] Answer Date Recorded PHQ-2 Score 0 03/15/2021 [facility] of Occupat ional Health - Occupational Stress [...] to sleep or slept in a senior care (including now)? No 03/14/2021 Nutrition Answer Date [...] Master's degree (e.g., MA, MS, Shubham, MEd, BOOTS AND SHOES SUPERVISOR, LAURA) 03/14/2021 Sex and Gender Information Value [...] 02/24/2023 3:27 PM CDT Plan of Treatment Health Maintenance Due Date Last Done Comments HIV Screening 1985 Hepatitis C Screening 1985 Lipid (Cholesterol) Screening 1983 Depression Screening (Annual PHQ-2) 10/06/2023 Influenza Vaccine (#1) 2024 , 07/11/2022, 07/11/2022, Additional history exists DTaP,Tdap,and Td Vaccines (3 - Td or Tdap) 10/08/2032 10/08/2022, 07/29/2012, 10/06/2008, Additional history exists Hepatitis A Vaccines Completed 07/12/2007, 11/12/2005, 10/10/2005 Hepatitis B Vaccines Completed 07/12/2007, 11/12/2005, 10/10/2005 Orthopoxvirus Vaccine Completed 01/30/2009 Pneumococcal vaccine (0-64 years) Aged Out 10/27/2012 No longer eligible based on patient's age to complete this topic COVID-19 Vaccine Completed 07/29/2023, , 01/14/2021, Additional history exists HPV Vaccines Aged Out No longer eligi ble based on patient's age to complete this topic Medical Devices Implanted Type Area Optical Engineering Manager Device Identifier Shelf Expiration Date Model / Serial / Lot Trimed-Screw Magalie. 2.3mm X 22mm - Barajas [id number] Implanted:Qty: 1 on 12/03/2012 Hardware e.g. pins/screws/ rods [employer] Description:Device Manufactu rer - Trimed Inc.. Device Status Text - [id number]. Trimed K-Wire 0.8 120mm - [place] [id number] Implanted:Qty: 4 on 12/03/2012 Hardware e.g. pins/screws/ rods [employer] Description:Device Manufactu rer - Trimed Inc.. Device Status Text - [id number]. Trimed-Screw Magalie. 2.3mm X 24mm - [place]ajas [id number] Implanted:Qty: 1 on 12/03/2012 Hardware e.g. pins/screws/ rods [employer] Description:Device Manufactu rer - Trimed Inc.. Device Status Text - [id number]. Self Tap-Screw 4.5 X 100 - [place]ajas [id number] Implanted:Qty: 1 on 08/25/2017 Hardware e.g. pins/screws/ rods Depuy Synthes Description:Device Manufactu rer - Synthes. Device Status Text - [id number]. Self Tap-Screw 4.5 X 64 - [place] [id number] Implanted:Qty: 1 on 08/25/2017 Hardware e.g. pins/screws/ rods [employer] Synthes Description:Device Manufactu rer - Synthes. Device Status Text - [id number]. Self Tap-Screw 4.5 X 76 - [place] [id number] Implanted:Qty: 1 on 08/25/2017 Hardware e.g. pins/screws/ rods [employer]ynthes Description:Device Manufactu rer - Synthes. Device Status Text - [id number]. Care Teams Bleacher S[employer] Pul[employer] Relationship Specialty Start Date End Date Rody Washburn APRN, C.N.P., D.N.P. [address] [place] [phone] PCP - General 05/07/19
== END 2024-05-06 10:20 | disposition home or self-care (01) ==
LOC: KYNREF 10:21
PROVIDERS: PCP Nurse Practitioner Family; Visit Provider Nurse Practitioner Family
DX: R74.8 Abnormal levels of other serum enzymes (principal); E66.9 Obesity, unspecified
CPT/HCPCS: 80053

== ENCOUNTER 2024-06-28 10:18 | Outpatient (CLI) | payer OTHER, SELFPAY ==
--- OUTSIDE RECORDS SUMMARY | 2024-06-28 10:20 | XMS_ITS | Continuity of Care Document ---
Author Name [facility] Organization [facility] Care Team Providers Care Hand Collator Name Role Phone [facility] Unavailable Unavailable Problems Combined list of problems from Department of Defense and Veterans Affairs facilities. It does not include entries that were removed or entered in error. Problem Status Onset Date Problem Type Date of Resolution Comments Source visit for: screening exam depression Inactive 07/26/20 11 Condition DoD Myopia, bilateral Active 10/03/18 99 Condition [facility] Regular astigmatism, bilateral Active 10/03/18 99 Condition [facility] Adjustment Disorder with Anxiety (ICD-9-CM 309.24) Active Condition [facility] Concussion W/O Coma [facility] Gastroesophageal Reflux Disorder * (ICD-9-CM 530.81) Active Condition [facility] Headaches * (ICD-9-CM 784.0) Active Condition [facility] Pain in joint involving shoulder region (ICD-9-CM 719.41) Active Condition [facility] Psychological factors affecting other physical condition (ICD-9-CM 316./V62.89) Active Condition [facility] visit for: services physical Active Condition [facility] tendonitis bicipital left Active Condition DoD epistaxis Inactive Condition [facility] joint pain, localized in the left shoulder Active Condition [facility] assessment of patient condition work status Inactive Condition DoD blepharitis Inactive Condition DoD gastroenteritis Inactive Condition DoD visit for: examination of subpopulation Inactive Condition DoD astigmatism Inactive Condition DoD refractive error - myopia Inactive Condition [facility] Medications Combined list of outpatient medications from [...] ORAL, [facility], 1000 ea. BOTTLE Active [id number] 4 2023 30 Pharmac y Data Transac tion Service Facilit y ESOMEPRAZOL E MAGNESIUM 40MG CAP,EC ESOMEPRA ZOLE MAGNESIU M 40MG CAP,EC Non-VA TAKE 1 CAPSULE BY MOUTH EVERY DAY Dec 18, 2010 Non-VA Document ed by: JOSEPH SUE A Document ed at: [facility] ORAL ACTIVE NENA SUE ER A 2010 MARLYN JEREZ [facility] HYDROCODONE -ACETAMINOP HEN (HYDROCODON E/ACETAMINO PHEN), 5MG-325MG, TABLET, ORAL, MALLINCKROD T PH, 500 ea. BOTTLE Active [id number] 4 2023 21 Pharmac y Data Transac tion Service Facilit y METHYLPREDN ISOLONE (methylpred nisolone), 4 MG, TAB DS PK, ORAL, [facility], 21 ea. DOSE-PACK Active [id number] 2023 21 Pharmac y Data Transac tion Service Facilit y OMEPRAZOLE (omeprazole ), 20 MG, CAPSULE DR, ORAL, [employer], 1000 ea. BOTTLE Active [id number] 4 2023 90 Pharmac y Data Transac tion Service Facilit y OMEPRAZOLE (OMEPRAZOLE ), 20MG, CAPSULE DR, ORAL, [facility], 1000 ea. BOTTLE Active [id number] 4 2023 90 Pharmac y Data Transac tion Service Facilit y Allergies, Adverse Reactions, Alerts Combined list of allergies from Department of Defense and Veterans Affairs facilities. It does not include entries that were removed or entered in error. Substance Category Reaction Severity Reaction type Status Date Reported Comments Source No Known Allergies Drug allergy (disorder) active 12/08/2018 Nawaf Santos [facility] Immunizations Combined list of available immunizations from the Department of Defense and Veterans Affairs facilities. Immunization Series Date Given Administered By Site Reaction Lot Number CVX Code Drug Fitness And Wellness Director Status Comments Source COVID-19, mRNA, LNP-S, PF, 100 mcg or 50 mcg dose 2020 REECE MAYEN () Not Given COVID-19, mRNA, LNP-S, PF, 100 mcg or 50 mcg dose [facility] Influenza, injectable, quadrivalent, preservative free 1 2018 [id number] 150 Transcribed (TRS) complet ed Influenza , injectabl e, quadrival ent, preservat michael free DoD Influenza, injectable, quadrivalent, preservative free 1 2018 [id number] 150 Seqirus (SEQ) complet ed Influenza , injectabl e, quadrival ent, preservat michael free DoD influenza virus vaccine, unspecified formulation 1 2017 UNK 88 Unknown (UNK) comple t ed influenza virus vaccine, unspecifi ed formulati on DoD influenza, injectable, quadrivalent, contains preservative 1 2016 [id number] 158 Seqirus (SEQ) comple t ed influenza , injectabl e, quadrival ent, contains preservat michael DoD Influenza, seasonal, injectable 1 2015 [id number] 141 Seqirus (SEQ) comple t ed Influenza , seasonal, injectabl e DoD Influenza, seasonal, injectable 1 2015 [id number] 141 Novartis Pharmaceutica l Preeti. (NOV) complet [...] Grace Canine Kidney, preservative free 1 2012 [id number] 153 Novartis Pharmaceutica l Preeti. (NOV) complet ed Influenza , injectabl e, Madin Grace Canine Kidney, preservat michael free DoD tetanus toxoid, reduced diphtheria toxoid, and acellular pertu is vaccine, adsorbed 1 2011 [id number] 115 Sanofi Pasteur (PMC) complet ed tetanus toxoid, reduced diphtheri a toxoid, and acellular pertussis vaccine, adsorbed DoD Influenza, seasonal, injectable, preservative free 1 2011 [id number] 140 Izzui (SKB) complet ed Influenza , seasonal, injectabl e, preservat michael free DoD Influenza, seasonal, injectable, preservative free 1 2010 [id number] 140 ActiveCloud. (MED) complet ed Influenza , seasonal, injectabl e, preservat michael free DoD INFLUENZA, UNSPECIFIED FORMULATION 2009 88 complet ed [facility] influenza virus vaccine, split virus (incl. purified surface antigen)-reti red CODE 1 2009 [id number] 15 [facility] [employer]CVRx[employer]ies, Inc. (CSL) complet ed influenza virus vaccine, split virus (incl. purified surface antigen)- retired CODE DoD Novel influenza-H1N 1-09, injectable 1 2008 [id number] 127 Novartis R2integrated. (NOV) complet ed Novel influenza -S2C8-29, injectabl e DoD anthrax vaccine 3 2008 [id number] Unknown (UNK) comple t ed anthrax vaccine DoD influenza virus vaccine, split virus (incl. purified surface antigen)-reti red CODE 1 2008 [id number] 15 Sanofi Pasteur (PMC) complet ed influenza virus vaccine, split virus (incl. purified surface antigen)- retired CODE DoD anthrax vaccine 2 2008 [id number] [employer] [place] ([facility]) complet ed anthrax vaccine DoD vaccinia (smallpox) vaccine 1 2008 [id number] 75 Unknown (UNK) complet ed vaccinia (smallpox ) vaccine DoD anthrax vaccine 1 2008 [id number] 24 [facility]) complet ed anthrax vaccine DoD typhoid Vi capsular polysaccharid e vaccine 1 2008 [id number] 101 Sanofi Pasteur ([facility]) complet ed typhoid Vi capsular polysacch aride vaccine DoD influenza virus vaccine, live, attenuated, for intranasal use 1 2008 [id number] 111 Unknown (UNK) comple t ed influenza virus vaccine, live, attenuate d, for intranasa l use DoD TD(ADULT) UNSPECIFIED FORMULATION 2008 139 complet [employer] influenza virus vaccine, live, attenuated, for intranasal use 1 2007 [id number] 111 [employer] Inc[employer] (MED) complet ed influenza virus vaccine, live, attenuate d, for intranasa l use DoD hepatitis B vaccine, adult dosage 3 2006 [id number] 43 Izzui (SKB) complet ed hepatitis B vaccine, adult [...] 2 Lf of diphtheria toxoid) 1 2005 [id number] 09 Sanofi Pasteur (PMC) complet ed tetanus and diphtheri a toxoids, adsorbed, preservat michael free, for adult use (2 Lf of tetanus toxoid and 2 Lf of diphtheri a toxoid) DoD poliovirus vaccine, inactivated 1 2005 [id number] 10 Sanofi Pasteur (PMC) complet ed polioviru s vaccine, inactivat ed DoD meningococcal polysaccharid e vaccine (MPSV4) 1 2005 [id number] 32 Sanofi Pasteur (PMC) complet ed meningoco ccal polysacch aride vaccine (MPSV4) DoD hepatitis A and hepatitis B vaccine 1 2005 [id number] 104 SmithKline (SKB) complet ed hepatitis A and hepatitis B vaccine DoD influenza virus vaccine, live, attenuated, for intranasal use 1 2005 [id number] 111 [employer] (MED) complet ed influenza virus vaccine, [...] ADM Date DC Date Status Disposition Source [facility] LAVINIA Teresa(IEP Optometry ) OUTPATIENT [id number] SEEMA TATUM 10/09 Released w/o Limitations [facility] Teresa(IEP Optomet ry) [facility] OUTPATIENT [id number] 05/27 Released w/o Limitations Theater Fac[facility] OUTPATIENT [id number] 11/21 Released w/o Limitations Theater [facility] OUTPATIENT [id number] 12/11 Released w/o Limitations Theater Facilit y R. JOSEPH Del Rosario(Scorpi on Team) OUTPATIENT [id number] harry staton SHANNON Sultana 07/25 Released w/o Limitations JOSEPH Addison(Scor pion Team) JOSEPH Falk(Scorpi on Team) OUTPATIENT [id number] umbertoJOELLE Tapia 08/12 Released with Work/Duty Limitations JOSEPH Addison(Scor pion Team) JOSEPH Fakl(Optome try Clinic) OUTPATIENT [id number] [facility] UPDATE JOHN WOODARD 08/22 Released w/o Limitations JOSEPH Addison(Opto metry Clinic) JOSEPH Falk(Scorpi on Team) OUTPATIENT [id number] f/u on umbertoJOELLE Matt 09/04 Released with Work/Duty Limitations JOSEPH Addison(Scor pion Team) [facility] Optometry ) OUTPATIENT [id number] old prescri p and request info about laser surgery JOCELYNE SCHWARTZ 12/08 Released w/o Limitations [facility] Optomet ry) [facility] M01[facility] Red) OUTPATIENT [id number] 0 mha/430 6745 LEOBARDO GRESHAM 03/17 Released w/o Limitations [facility] Red) [facility] M01A Green) OUTPATIENT [id number] pha/430 6745 ROGELIO KENDRICK 03/18 Released w/o Limitations [facility] M[facility] Green) [facility] Hearing Conservat ion) OUTPATIENT [id number] Notes Entered by: JUDAH OVERTON 18 Mar 2019 0957 ------- ------- ------- ------- -- Audiogr am JUDAH HUERTA 03/18 Released w/o Limitations [facility] Hearing Conserv ation) [facility] M01C Blue) OUTPATIENT [id number] Notes Entered by: MEG REEVES 16 Jul 2019 0917 ------- ------- ------- ------- -- Flu late entry 019 MEG REEVES 07/16 Released w/o Limitations [facility] M01C Blue) [facility] Optometry ) OUTPATIENT [id number] JOCELYNE JETER 08/19 Released w/o Limitations [facility] Optomet ry) [facility] Ophthalmo logy) OUTPATIENT [id number] initial consult IFRAH NGUYEN 09/22 Released w/o Limitations [facility] Ophthal mology) [facility] Ophthalmo logy) OUTPATIENT [id number] BRIEF SHANNON SQUIRES 10/26 Released w/o Limitations [facility] Ophthal mology) [facility] Ophthalmo logy) OUTPATIENT [id number] consent SHANNON SQUIRES 10/28 Released with Work/Duty Limitations [facility] Ophthal mology) [facility] Ophthalmo logy) OUTPATIENT [id number] 1 day pop lasik SHAWSHANNON 10/29 Released w/o Limitations [facility] Ophthal mology) [facility] Ophthalmo logy) OUTPATIENT [id number] 1 week pop michelleik SHAWSHANNON H 11/03 Released w/o Limitations [facility] Ophthal mology) [facility] Optometry ) OUTPATIENT [id number] f/u lasik surgery - [id number] JOCELYNE SCHWARTZ 11/30 Released w/o Limitations [facility] Optomet ry) [facility] M[facility] Red) OUTPATIENT [id number] Sleep initial /////// LEOBARDO GRESHAM 12/08 Released w/o Limitations [facility] M[facility] Red) [facility] M01A Green) OUTPATIENT [id number] Notes Entered by: JUMA SANDOVAL 17 Dec 2019 1534 ------- ------- ------- ------- -- ROGELIO Ortega 12/16 Released w/o Limitations [facility] M[facility] Green) [facility] Green) TELE CONSULT [id number] Notes Entered by: Manju KENDRICK 21 Dec 2019 0828 ------- ------- ------- ------- -- FLY Phillips 12/20 [facility] M[facility] Green) [facility] M[facility] Green) OUTPATIENT [id number] Notes Entered by: ALISE BELTRAN 19 Jan 2020 1057 ------- ------- ------- ------- -- SINGH Mendoza 01/18 Released w/o Limitations [facility] M01A Green) [facility] Hearing Conservat ion) OUTPATIENT [id number] Notes Entered by: Nicholas NICHOLAS 24 Jan 2020 1411 ------- ------- ------- ------- -- audiogr am ALANIS NICHOLAS 01/23 Released w/o Limitations [facility] Hearing Conserv ation) [facility] M01[facility] Red[facility] OUTPATIENT [id number] 1 [facility] 6 [phone] FRANK TRONCOSO 01/30 Released w/o Limitations [facility] M[facility] Red) [facility] Red) TELE CONSULT [id number] Notes Entered by: ANN TORRES BINH 10 Feb 2020 0849 ------- ------- ------- ------- -- Referra rdz to [facility] BOBBY VENCES 02/09 [facility] Red) [facility] Red) TELE CONSULT [id number] Notes Entered by: ANN TORRES BINH 14 Feb 2020 0715 ------- ------- ------- ------- -- ReferTEJINDER Pedroza 02/13 [facility] M[facility] Red) [facility] M01[facility] Green) OUTPATIENT [id number] Notes Entered by: TEJINDER MCALLISTER 17 Feb 2020 1014 ------- ------- ------- ------- -- care coordin ation follow up TEJINDER MCALLISTER 02/16 Released w/o Limitations [facility] M01A Green) [facility] M[facility] Green) OUTPATIENT [id number] Notes Entered by: TEJINDER MCALLISTER 23 [...] Procedure Procedure Type Code Date Perfomer Comments [facility] e SKIN TEST; TUBERCULOSIS, INTRADERMAL 009 DoD SKIN TEST; TUBERCULOSIS, INTRADERMAL [facility] SCREENING TEST OF VISUAL ACUITY, QUANTITATIVE, BILATERAL [facility] IMMUNIZATION ADMINISTRATION (INCLUDES PERCUTANEOUS, INTRADERMAL, SUBCUTANEOUS, OR INTRAMUSCULAR INJECTIONS); 1 VACCINE (SINGLE OR COMBINATION VACCINE/TOXOID) [facility] HEPATITIS A AND HEPATITIS B VACCINE (HEPA-HEPB), ADULT DOSAGE, FOR INTRAMUSCULAR USE [facility] FITTING OF SPECTACLES, EXCEPT FOR APHAKIA; MONOFOCAL [facility] SKIN TEST; TUBERCULOSIS, INTRADERMAL [facility] COORDINATED CARE FEE, RISK ADJUSTED MAINTENANCE [facility] COORDINATED CARE FEE, RISK ADJUSTED MAINTENANCE [facility] SCREENING TEST OF VISUAL ACUITY, QUANTITATIVE, BILATERAL [facility] PATIENT EDUCATION, NOT OTHERWISE CLASSIFIED, NON-PHYSICIAN PROVIDER, INDIVIDUAL, PER SESSION [facility] TELE ASSESS & MGT SRV PROV QUAL NONPHYS HLTH CARE PRO TO EST PAT,PARENT,GUARD NOT ORIG REL ASSESS & MGT SRV PROV W/IN PREV 7 DAYS NOR LEAD ASSESS & MGT SRV/PX W/IN NXT 24 HR/SOON APT;5-10 MIN MED DIS [facility] BRIEF EMOTIONAL/BEHAVIORA L ASSESSMENT (EG, DEPRESSION INVENTORY, ATTENTION-DEFICIT/H YPERACTIVITY DISORDER [ADHD] SCALE), WITH SCORING AND DOCUMENTATION, PER STANDARDIZED INSTRUMENT [facility] LASER IN SITU KERATOMILEUSIS (LASIK) [facility] POSTOPERATIVE FOLLOW-UP VISIT, NORMALLY INCLUDED IN THE SURGICAL PACKAGE, INDICATE THAT EVALUATION & MANAGEMENT SERVICE WAS PERFORMED DURING A POSTOPERATIVE PERIOD REASON RELATED ORIGINAL PROCEDURE [facility] POSTOPERATIVE FOLLOW-UP VISIT, NORMALLY INCLUDED IN THE SURGICAL PACKAGE, INDICATE THAT EVALUATION & MANAGEMENT SERVICE WAS PERFORMED DURING A POSTOPERATIVE PERIOD REASON RELATED ORIGINAL PROCEDURE [facility] LASER IN SITU KERATOMILEUSIS (LASIK) [facility] OPHTHALMOLOGICAL SERVICES: MEDICAL EXAMINATION AND EVALUATION, WITH INITIATION OR CONTINUATION OF DIAGNOSTIC AND TREATMENT PROGRAM; INTERMEDIATE, ESTABLISHED PATIENT [facility] OPHTHALMIC ULTRASOUND, ECHOGRAPHY, DIAGNOSTIC; CORNEAL PACHYMETRY, UNILATERAL OR BILATERAL (DETERMINATION OF CORNEAL THICKNESS) [facility] COMPUTERIZED CORNEAL TOPOGRAPHY, UNILATERAL OR BILATERAL, WITH INTERPRETATION AND REPORT [facility] IMMUNIZATION ADMINISTRATION (INCLUDES PERCUTANEOUS, INTRADERMAL, SUBCUTANEOUS, OR INTRAMUSCULAR INJECTIONS); 1 VACCINE (SINGLE OR COMBINATION VACCINE/TOXOID) [facility] PURE TONE AUDIOMETRY (THRESHOLD), AUTOMATED; AIR ONLY [facility] SCREENING TEST OF VISUAL ACUITY, QUANTITATIVE, BILATERAL [facility] BRIEF EMOTIONAL/BEHAVIORA L ASSESSMENT (EG, DEPRESSION INVENTORY, ATTENTION-DEFICIT/H YPERACTIVITY DISORDER [ADHD] SCALE), WITH SCORING AND DOCUMENTATION, PER STANDARDIZED INSTRUMENT [facility] FITTING OF SPECTACLES, EXCEPT FOR APHAKIA; MONOFOCAL [facility] Ear mold/insert, not disposable, any type CASILLASGAXIOL JUDAH Holland Patient education, not otherwise cla ified, non-physician provider, individual, per se ion CASILLASGAXIOL AJUDAH Threshold Audiogram (Pure Tone) Automated Threshold Audiogram (Pure Tone) Automated 0208T CASVONSGAXTIMMY AJUDAH Psychometric Emotional / Behavioral A e ment Psychometric Emotional / Behavioral Assessment 60092 LEOBARDO GRESHAM [facility] Spectacles Services Fitting Monofocal Except For Aphakia Spectacles Services Fitting Monofocal Except For Aphakia [phone] JOCELYNE SCHWARTZ [facility] Ophthalmological New Patient Start Comprehensive Care Ophthalmological New Patient Start Comprehensive Care [phone] JOCELYNE SCHWARTZ [facility] Determination Of Refractive State Determination Of Refractive State 90603 019 JOCELYNE SCHWARTZ [facility] Screening Test Of Visual Acuity, Quantitative, Bilateral Screening Test Of Visual Acuity, Quantitative, Bilateral [phone] JOHN WOODARD VA WITHOUT GLASSES 20/400 OU VA WITH GLASSES 20/20 OU [facility] UPDATED 12/04 FOR VISION READINESS. [facility] Determination Of Refractive State Determination Of Refractive State 73383 006 ALICE TATUM Spectacles Services Fitting Monofocal Except For Aphakia Spectacles Services Fitting Monofocal Except For Aphakia 68515 006 ALICE TATUM Influenza Split Virus Vaccine IM With Preservative Quadrivalent 0.50mL Dosage Influenza Split Virus Vaccine IM With Preservative Quadrivalent 0.50mL Dosage 05147 MEG REEVES [facility] Immunization Administration By Injection, One Vaccine Immunization Administration By Injection, One Vaccine 82771 MEG REEVES [facility] Ophthalmological Prior Patient Start Comprehensive Care Ophthalmological Prior Patient Start Comprehensive Care 79614 SCHWARTZJOCELYNE [facility] Determination Of Refractive State Determination Of Refractive State 93128 SCHWARTZ [facility] Computerized Corneal Topography Computerized Corneal Topography [address] [place] [facility] Ophthalmological New Patient Start Comprehensive Care Ophthalmological New Patient Start Comprehensive Care 87816 IFRAH NGUYEN [facility] Corneal Pachymetry Both Eyes Corneal Pachymetry Both Eyes 76374 IFRAH NGUYEN [facility] Laser in situ keratomileusis (LASIK) JIMBO ROJAS [facility] for surgery documents [facility] Postoperative Visit, Without Charge Postoperative Visit, Without Charge 84126 SHAWSHANNON [facility] Laser in situ keratomileusis (LASIK) JOCELYNE SCHWARTZ [facility] Behavioral health outreach service (planned approach to reach a targeted population) LEOBARDO GRESHAM [facility] Psychometric Emotional / Behavioral A e ment Psychometric Emotional / Behavioral Assessment 98229 LEOBARDO GRESHAM BHM-20, CSSRS, RIP, Gatzke Sleepiness scale [facility] Non-Physician Phone Call To Patient/Provider Brief (5-10min) Non-Physician Phone Call To Patient/Provider Brief (5-10min) 87259 FLY SHER [facility] Threshold Audiogram (Pure Tone) Automated Threshold Audiogram (Pure Tone) Automated 0208T ALANIS NICHOLAS [facility] Patient education, not otherwise cla ified, non-physician provider, individual, per se ALANIS Jiang [facility] Coordinated care fee, risk adjusted maintenance TEJINDER MCALLISTER [facility] Social History Combined list of available smoking, tobacco, and other social history from Department of Defense and Veterans Affairs facilities. Social History Type Response Date Comment Sourc e Tobacco smoking status NHIS LIFETIME NON-TOBACCO USER 12/18/2010 [facility] This section is an empty social history section. [facility]
--- OUTSIDE RECORDS SUMMARY | 2024-06-28 10:20 | XMS_ITS | Referral Summary ---
Author Organization [facility] Address [address] [place] [address] Care Team Providers Care Raw Juice Weigher Name Role Phone Rody Washburn APRN, C.N.P., D.N.P. Primary Care Provider Source Comments Patient records contain information from all sites at [facility]. For routine questions regarding patient records, call [phone] during business hours, M-F 8:00 AM - 5:00 PM Central Time. Record requests for emergency care only can be directed to [phone] at any time.[facility] Encounters Date Type Department Care Team Description 05/18/2024 Orders Only RST PCP [facility] MNT Rody Washburn APRN, C.N.P., D.N.P. Screening Lipid from Last 3 Months Allergies No known active allergies Medications Medication [...] 07/12/2007 HepB Adult 07/12/2007 IPV 10/10/2005 Influenza Split 07/07/2017, 4,08/18/2013,2009 Influenza TIV (IM) 07/09/2016 Influenza, Injectable, Quadrivalent 07/16/2018,1 Influenza, Seasonal, Injectable 07/11/2015,07/26,07/06/2013 Influenza, Unspecified 07/20/2020,2017,09/11/2013,2009 MPSV4 10/10/2005 PPSV23 10/27/2012 Smallpox 01/30/2009 Td, (Adult) Unspecified 10/06/2008,10/10/2005 Tdap 07/29/2012 TyVi (inj) 01/18/2009 CHARI 10/06/1988 influenza LAIV (Nasal) (2 ye ars through 49 years) 11/23/2008 influenza trivalent high dos e (HD)(PF) 07/07/2017,07/30/2014,08/18/2013 influenza trivalent vaccine (6 months and older)(PF) 07/08/2016,10/26/2015,07/29/2012 influenza vaccine quad (FLUZONE/FLUARIX) (6 months and [...] often do you attend chur ch or worship services? Never 03/14/2021 Do you belong to any clubs o r organizations such as congregational groups, unions, fraternal or athletic groups, or [...] Answer Date Recorded PHQ-2 Score 0 03/15/2021 [facility] - Occupational Stress [...] or slept in a retirement (including now)? No 03/14/2021 Nutrition Answer Date [...] Master's degree (e.g., MA, MS, Shubham, MEd, AUTOMATIC WASHER MECHANIC, LAURA) 03/14/2021 Sex and Gender Information Value [...] on file Medical Devices Implanted Type Area Scrubber Machine Tender Device Identifier Shelf Expiration Date Model / Serial / Lot Trimed-Screw Magalie. 2.3mm X 22mm - Barajas [id number] Implanted:Qty: 1 on 12/03/2012 Hardware e.g. pins/screws/ rods [employer] Description:Device Manufactu rer - Tr[employer].. Device Status Text - [id number]. Trimed K-Wire 0.8 120mm - [employer]ajas [id number] Implanted:Qty: 4 on 12/03/2012 Hardware e.g. pins/screws/ rods [employer] Description:Device Manufactu rer - [employer].. Device Status Text - [id number]. Trimed-Screw Magalie. 2.3mm X 24mm - [employer]ajas [id number] Implanted:Qty: 1 on 12/03/2012 Hardware e.g. pins/screws/ rods [employer] Description:Device Manufactu rer - [employer].. Device Status Text - [id number]. Self Tap-Screw 4.5 X 100 - Barajas [id number] Implanted:Qty: 1 on 08/25/2017 Hardware e.g. pins/screws/ rods [employer]ynthe[employer] Description:Device Manufactu rer - Synthes. Device Status Text - [id number]. Self Tap-Screw 4.5 X 64 - [place] [id number] Implanted:Qty: 1 on 08/25/2017 Hardware e.g. pins/screws/ rods [employer]ynthe[employer] Description:Device Manufactu rer - [employer]ynthe[employer]. Device Status Text - [id number]. Self Tap-Screw 4.5 X 76 - [employer]ajas [id number] Implanted:Qty: 1 on 08/25/2017 Hardware e.g. pins/screws/ rods [employer]ynthe[employer] Description:Device Manufactu rer - [employer]ynthe[employer]. Device Status Text - [id number]. Care Teams Raw Juice Weigher Relationship Specialty Start Date End Date Rody Washburn APRN, C.N.P., D.N.P. [address] [place] [phone] PCP - General 05/07/19
--- OUTSIDE RECORDS SUMMARY | 2024-06-28 10:20 | XMS_ITS ---
Author Organization [facility] Address [address] [place] [address] Care Team Providers Care Drip Box Tender Name Role Phone Unavailable Unavailable Unavailable Surgery Details Not on file Complications Check Surgery Details section. Procedure Estimated Blood Loss Check Surgery Details section. Procedure Findings Check Surgery Details section. Procedure Specimens Taken Check Surgery Details section.
--- OUTSIDE RECORDS SUMMARY | 2024-06-28 10:20 | XMS_ITS | Clinical Summary ---
Author Organization [facility] Address [address] [place] [address] Care Team Providers Care Chef German Name Role Phone Rody Washburn APRN, C.N.P., D.N.P. Primary Care Provider Source Comments Patient records contain information from all sites at [facility]. For routine questions regarding patient records, call [phone] during business hours, M-F 8:00 AM - 5:00 PM Central Time. Record requests for emergency care only can be directed to [phone] at any time.[facility] Allergies No known active allergies Medications [...] Gastroesophageal Reflux Disease Without Esophagi tis 07/29/2012 Encounters Date Type Department Care Team Description 05/18/2024 Orders Only RST PCP [facility] MNT Rody Washburn APRN, C.N.P., D.N.P. Screening Lipid from Last 3 Months Immunizations Name Administration [...] often do you attend chur ch or adventist services? Never 03/14/2021 Do you belong to any clubs o r organizations such as pentecostalism groups, unions, fraternal or athletic groups, or [...] Answer Date Recorded PHQ-2 Score 0 03/15/2021 [facility] [...] or slept in a m[facility]p (including now)? No 03/14/2021 Nutrition Answer Date [...] Master's degree (e.g., MA, MS, Shubham, MEd, CUSTOMER SUPPORT EXECUTIVE, LAURA) 03/14/2021 Sex and Gender Information Value [...] Screening 1985 Depression Screening (Annual PHQ-2) 10/06/2023 COVID-19 Vaccine ( season) 2024 07/29/2023, 08/27/2021, 01/14/2021, Additional history exists Influenza Vaccine (#1) 2024 , 07/11/2022, 07/11/2022, Additional history exists DTaP,Tdap,and Td Vaccines (3 - Td or Tdap) 10/08/2032 10/08/2022, 07/29/2012, 10/06/2008, Additional history exists Hepatitis A Vaccines Completed 07/12/2007, 11/12/2005, 10/10/2005 Hepatitis B Vaccines Completed 07/12/2007, 11/12/2005, 10/10/2005 Orthopoxvirus Vaccine Completed 01/30/2009 Pneumococcal vaccine (0-64 years) Aged Out 10/27/2012 No longer eligible based on patient's age to complete this topic HPV Vaccines Aged Out No longer eligi ble based on patient's age to complete this topic Medical Devices Implanted Type Area Front Desk Worker Device Identifier Shelf Expiration Date Model / Serial / Lot Trimed-Screw Magalie. 2.3mm X 22mm - [employer]ajas [id number] Implanted:Qty: 1 on 12/03/2012 Hardware e.g. pins/screws/ rods [employer] Description:Device Manufactu rer - [employer].. Device Status Text - [id number]. Trimed K-Wire 0.8 120mm - [employer]ajas [id number] Implanted:Qty: 4 on 12/03/2012 Hardware e.g. pins/screws/ rods [employer] Description:Device Manufactu rer - [employer].. Device Status Text - [id number]. Trimed-Screw Magalie. 2.3mm X 24mm - [employer]ajas [id number] Implanted:Qty: 1 on 12/03/2012 Hardware e.g. pins/screws/ rods [employer] Description:Device Manufactu rer - [employer].. Device Status Text - [id number]. Self Tap-Screw 4.5 X 100 - [employer]ajas [id number] Implanted:Qty: 1 on 08/25/2017 Hardware e.g. pins/screws/ rods [employer] Description:Device Manufactu rer - Synthes. Device Status Text - [id number]. Self Tap-Screw 4.5 X 64 - [place] [id number] Implanted:Qty: 1 on 08/25/2017 Hardware e.g. pins/screws/ rods [employer] Description:Device Manufactu rer - [employer]ynthes. Device Status Text - [id number]. Self Tap-Screw 4.5 X 76 - [place] [id number] Implanted:Qty: 1 on 08/25/2017 Hardware e.g. pins/screws/ rods [employer] Description:Device Manufactu rer - Synthes. Device Status Text - [id number]. Care Teams Chef German Relationship Specialty Start Date End Date Rody Washburn APRN, C.N.P., D.N.P. [address] [place] [phone] PCP - General 05/07/19
--- OUTSIDE RECORDS SUMMARY | 2024-06-28 10:21 | XMS_ITS | Encounter Summary ---
Author Organization [facility] Address [address] [place] [address] Care Team Providers Care Collections And Archives Director Name Role Phone Rody Washburn APRN, C.N.P., D.N.P. Primary Care Provider Encounter Details Date Type Department Care Team (Late st Contact Info) Description 05/18/2024 Orders Only RST PCP [facility] MNT Rody Washburn APRN, C.N.P., D.N.P. [address] [place] [phone] Screening Lipid Social History Tobacco Use Types Packs/Day Years [...] often do you attend chur ch or quaker services? Never 03/14/2021 Do you belong to any clubs o r organizations such as worship groups, unions, fraternal or athletic groups, or [...] Answer Date Recorded PHQ-2 Score 0 03/15/2021 [facility] Answer Date Recorded [...] or slept in a prison (including now)? No 03/14/2021 Nutrition Answer Date Recorded Nutrition: EVOO Fat Source No 03/14 On average, how many serving s of fruits and vegetables do you eat per day (serving size is equal to 1 cup or approximately the size of a tennis ball)? 0-1 03/14/2021 Dental Answer Date Recorded Dental: Regular Dentist Unknown 03/14/20 Employment Answer Date Recorded Employment status Employed and actively working without restrictions 03/14/2021 Education Answer Date Recorded What is the highest level of school you have completed or the highest degree you have received? Master's degree (e.g., MA, MS, Shubham, MEd, RESEARCH CENTER DIRECTOR, LAURA) 03/14/2021 Sex and Gender Information Value Date Recorded Sex Assigned at Not on file Gender Identity Male 03/14/2021 9:46 PM CDT Sexual Orientation Straight 03/14/2021 9: 46 PM CDT documented as of this encounter Plan of Treatment Scheduled Orders Name Type Priority Associated Diagnoses Orde r Schedule Lipid Panel Lab Routine Screening Lipid Expected: 06/01/2024, Expires: 11/14/2024 documented as of this encounter Visit Diagnoses Diagnosis Screening Lipid documented in this encounter Care Teams Collections And Archives Director Relationship Specialty Start Date End Date Rody Washburn APRN, C.N.P., D.N.P. [address] [place] [phone] PCP - General 05/07/19 documented as of this encounter
--- NOTE | 2024-06-28 10:57 | W.ANESCHARGE ---
Anesthesia Charges Start Date/Time Anesthesia Start Date: 06/28/24 Anesthesia Start Time: 10:38 Stop Date/Time Anesthesia Stop Date: 06/28/24 Anesthesia Stop Time: 10:51
--- NOTE | 2024-06-28 12:09 | W.ANESCHARGE ---
Anesthesia Charges Start Date/Time Anesthesia Start Date: 06/28/24 Anesthesia Start Time: 10:38 Stop Date/Time Anesthesia Stop Date: 06/28/24 Anesthesia Stop Time: 10:51
== END 2024-06-28 10:19 | disposition home or self-care (01) ==
LOC: OP CLINIC 10:19
PROVIDERS: PCP Nurse Practitioner Family; Visit Provider Internal Medicine
DX: R10.13 Epigastric pain (principal); R12 Heartburn
CPT/HCPCS: 00731; 43239; 88305; J2704; J3490

== ENCOUNTER 2024-08-09 17:01 | Outpatient (CLI) | payer OTHER, SELFPAY | END 2024-08-09 17:02 | disposition home or self-care (01) | PROVIDERS: PCP Nurse Practitioner Family; Visit Provider Nurse Practitioner Family | DX: R74.8 Abnormal levels of other serum enzymes (principal); E66.9 Obesity, unspecified; Z68.39 Body mass index [BMI] 39.0-39.9, adult | CPT/HCPCS: 80076 ==

== ENCOUNTER 2024-10-17 01:47 | Emergency (ER) | payer OTHER, SELFPAY ==
--- NOTE | 2024-10-17 | XR_ITS ---
Patient: GEETA SEGURA Facility:?[facility] Patient ID:?[id number] Site Patient ID:?[id number]. Site :?1985 Study:?XRay-Extremity Left WRIST-10/17/2024 2:32:27 AM Ordering Physician:?DR. DUMONT Final Report: Indication: Fall Technique: Three views of the left wrist Comparison: None Findings/Impression: No acute radiographic abnormality appreciated. Dictated by Cheng Hernandez MD @ 10/17/2024 2:34:01 AM Signed by:?Cheng Hernandez MD @10/17/2024 2:34:01 AM (Electronic Signature)
[2024-10-17 01:50] VITALS: BP 127/95; PULSE 84; RESP 16; TEMP 36.7; O2SAT 96; BMI 33.5
[2024-10-17] MEDS: IBUPROFEN 200 MG TABLET 600 MG PO (02:10)
--- OUTSIDE RECORDS SUMMARY | 2024-10-17 03:32 | XMS_ITS ---
Author Organization [facility] Address [address] [place] [address] Care Team Providers Care Photographic Process Worker Name Role Phone Unavailable Unavailable Unavailable Surgery Details Not on file Complications Check Surgery Details section. Procedure Estimated Blood Loss Check Surgery Details section. Procedure Findings Check Surgery Details section. Procedure Specimens Taken Check Surgery Details section.
--- OUTSIDE RECORDS SUMMARY | 2024-10-17 03:32 | XMS_ITS | Continuity of Care Document ---
Author Name [facility] Organization [facility] Care Team Providers Care Instrumentation Controls Engineer Name Role Phone [facility] Unavailable Unavailable Problems Combined list of problems from Department of Defense and Veterans Affairs facilities. It does not include entries that were removed or entered in error. Problem Status Onset Date Problem Type Date of Resolution Comments Source visit for: screening exam depression Inactive 07/26/20 11 Condition [facility] Myopia, bilateral Active 10/03/18 99 Condition [facility] Regular astigmatism, bilateral Active 10/03/18 99 Condition [facility] Adjustment Disorder with Anxiety (ICD-9-CM 309.24) Active Condition [facility] Concussion W/O Coma Active Condition [facility] Gastroesophageal Reflux Disorder * (ICD-9-CM 530.81) Active Condition [facility] Headaches * (ICD-9-CM 784.0) Active Condition [facility] Pain in joint involving shoulder region (ICD-9-CM 719.41) Active Condition [facility] Psychological factors affecting other physical condition (ICD-9-CM 316./V62.89) Active Condition [facility] visit for: services physical Active Condition [facility] tendonitis bicipital left Active Condition Do[facility] epistaxis Inactive Condition [facility] joint pain, localized in the left shoulder Active Condition [facility] assessment of patient condition work status Inactive Condition [facility] blepharitis Inactive Condition [facility] gastroenteritis Inactive Condition [facility] visit for: examination of subpopulation Inactive Condition [facility] astigmatism Inactive Condition [facility] refractive error - myopia Inactive Condition [facility] Diagnosis: ICD-10-CM F41.9 Anxiety disorder, unspecified Active Diagnosis [facility] Medications Combined list of outpatient medications from [...] ORAL, [facility], 1000 ea. BOTTLE Active [id number] 2023 30 Pharmac y Data Transac tion Service Facilit y ESOMEPRAZOL E MAGNESIUM 40MG CAP,EC TAKE 1 CAPSULE BY MOUTH EVERY DAY ORAL ACTIVE NENA SUE ER A 2010 [facility] HYDROCODONE -ACETAMINOP HEN (HYDROCODON E/ACETAMINO PHEN), 5MG-325MG, TABLET, ORAL, MALLINCKROD T PH, 500 ea. BOTTLE Active [id number] 2023 21 Pharmac y Data Transac tion Service Facilit y METHYLPREDN ISOLONE (methylpred nisolone), 4 MG, TAB DS PK, ORAL, [facility], 21 ea. DOSE-PACK Active [id number] 2023 21 Pharmac y Data Transac tion Service Facilit y OMEPRAZOLE (omeprazole ), 20 MG, CAPSULE DR, ORAL, Blossom, 1000 ea. BOTTLE Active [id number] 4 2023 90 Pharmac y Data Transac tion Service Facilit y OMEPRAZOLE (OMEPRAZOLE ), 20MG, CAPSULE DR, ORAL, 'S LAB, 1000 ea. BOTTLE Active [id number] 4 2023 90 Pharmac y Data Transac tion Service Facilit y Allergies, Adverse Reactions, Alerts Combined list of allergies from Department of Defense and Veterans Affairs facilities. It does not include entries that were removed or entered in error. Substance Category Reaction Severity Reaction type Status Date Reported Comments Source No Known Allergies Drug allergy (disorder) active 12/08/2018 Nawaf Santos [facility] Immunizations Combined list of available immunizations from the Department of Defense and Veterans Affairs facilities. Immunization Series Date Given Administered By Site Reaction Lot Number CVX Code Drug Lead Coater Status Comments Source COVID-19 (MODERNA), MRNA, LNP-S, PF, 50 MCG/0.5 ML (AGES 12+ YEARS) 2023 312 complet ed [facility] INFLUENZA, SPLIT VIRUS, TRIVALENT, PF 2023 140 complet ed [facility] PNEUMOCOCCAL CONJUGATE PCV20, POLYSACCHARID E [id number] CONJUGATE, ADJUVANT, PF 2023 216 complet ed [facility] COVID-19 (MODERNA), MRNA, LNP-S, PF, 50 MCG/0.5 ML (AGES 12+ YEARS) 2022 312 complet [facility] INFLUENZA, MDCK, QUADRIVALENT, PF 2022 171 complet [facility] TD (ADULT), 2 LF TETANUS TOXOID, PRESERVATIVE FREE, ADSORBED 2022 09 complet [facility] INFLUENZA, MDCK, QUADRIVALENT, PF 2021 171 complet [facility] COVID-19 (MODERNA), MRNA, LNP-S, PF, 100 MCG/0.5ML DOSE OR 50 MCG/0.25ML DOSE 2020 207 complet [facility] COVID-19, mRNA, LNP-S, PF, 100 mcg or 50 mcg dose 2020 REECE MAYEN () Not Given COVID-19, mRNA, LNP-S, PF, 100 mcg or 50 mcg dose DoD INFLUENZA, SPLIT VIRUS, QUADRIVALENT, PF 2020 150 complet [facility] COVID-19 (MODERNA), MRNA, LNP-S, PF, 100 MCG/0.5ML DOSE OR 50 MCG/0.25ML DOSE 2020 207 complet [facility] COVID-19 (MODERNA), MRNA, LNP-S, PF, 100 MCG/0.5ML DOSE OR 50 MCG/0.25ML DOSE 2020 207 complet [facility] INFLUENZA, SPLIT VIRUS, QUADRIVALENT, PF 2019 150 complet [facility] Influenza, injectable, quadrivalent, preservative free 1 2018 [id number] 150 Transcribed (TRS) complet Influenza , injectabl e, quadrival ent, preservat michael free DoD Influenza, injectable, quadrivalent, preservative free 1 2018 [id number] 150 Seqirus (SEQ) complet ed Influenza , injectabl e, quadrival ent, preservat michael free [facility] INFLUENZA, SPLIT VIRUS, QUADRIVALENT, PRESERVATIVE 2017 158 complet [facility] influenza virus vaccine, unspecified formulation 1 2017 UNK 88 Unknown (UNK) comple t ed influenza virus vaccine, unspecifi ed formulati on DoD influenza, injectable, quadrivalent, contains preservative 1 2016 [id number] 158 Seqirus (SEQ) comple t ed influenza , injectabl e, quadrival ent, contains preservat michael DoD INFLUENZA, HIGH-DOSE, TRIVALENT, PF 2016 135 complet ed [facility] Influenza, seasonal, injectable 1 2015 [id number] 141 Seqirus (SEQ) comple t ed Influenza , seasonal, injectabl e DoD INFLUENZA, SPLIT VIRUS, TRIVALENT, PF 2015 140 complet ed [facility] Influenza, seasonal, injectable 1 2015 [id number] 141 Novartis [employer] Preeti. (AUG) complet ed Influenza , seasonal, injectabl e DoD INFLUENZA, SPLIT VIRUS, TRIVALENT, PF 2015 140 complet ed [facility] INFLUENZA, SPLIT VIRUS, TRIVALENT, PRESERVATIVE 2014 141 complet ed [facility] measles, mumps and rubella virus vaccine 2 2014 UNK 03 Unknown (UNK) Not Given measles, mumps and rubella virus vaccine DoD varicella virus vaccine 1 2014 UNK 21 Unknown (UNK) Not Given varicella virus vaccine DoD INFLUENZA, HIGH-DOSE, TRIVALENT, PF 2013 135 complet ed [facility] Influenza, injectable, quadrivalent, preservative free 1 2013 [id number] 150 Unknown (UNK) comple t ed Influenza , injectabl e, quadrival ent, preservat michael free DoD INFLUENZA, SPLIT VIRUS, TRIVALENT, PRESERVATIVE 2013 141 complet ed [facility] INFLUENZA, SPLIT VIRUS, QUADRIVALENT, PF 2013 150 complet ed [facility] Influenza, injectable, Madin Grace Canine Kidney, preservative free 1 2012 [id number] 153 Novartis [employer] l Preeti. (AUG) complet ed Influenza , injectabl e, Madin Grace Canine Kidney, preservat michael free DoD INFLUENZA, HIGH-DOSE, TRIVALENT, PF 2012 135 complet ed [facility] INFLUENZA, SPLIT VIRUS, TRIVALENT, PRESERVATIVE 2012 141 complet [facility] PNEUMOCOCCAL POLYSACCHARID E PPV23 2012 33 complet [facility] INFLUENZA, SPLIT VIRUS, TRIVALENT, PF 2011 140 complet [facility] TDAP 2011 115 complet [facility] tetanus toxoid, reduced diphtheria toxoid, and acellular pertu is vaccine, adsorbed 1 2011 [id number] 115 Sanofi Pasteur ([facility]) complet ed tetanus toxoid, reduced diphtheri a toxoid, and acellular pertussis vaccine, adsorbed DoD Influenza, seasonal, injectable, preservative free 1 2011 [id number] 140 [employer] (SKB) complet ed Influenza , seasonal, injectabl e, preservat michael free DoD Influenza, seasonal, injectable, preservative free 1 2010 [id number] 140 [employer]. (MED) complet ed Influenza , seasonal, injectabl e, preservat michael free DoD INFLUENZA, UNSPECIFIED FORMULATION 2009 88 complet [facility] influenza virus vaccine, split virus (incl. purified surface antigen)-reti red CODE 1 2009 [id number] 15 [employer] (CSL) complet influenza virus vaccine, split virus (incl. purified surface antigen)- retired CODE [facility] Novel influenza-H1N 1-09, injectable 1 2008 [id number] 127 Novartis [employer] Preeti. (NOV) complet ed Novel influenza -X6A1-20, injectabl e DoD anthrax vaccine 3 2008 [id number] 24 Unknown (UNK) comple t ed anthrax vaccine DoD influenza virus vaccine, split virus (incl. purified surface antigen)-reti red CODE 1 2008 [id number] 15 Sanofi Pasteur ([facility]) complet ed influenza virus vaccine, split virus (incl. purified surface antigen)- retired CODE DoD anthrax vaccine 2 2008 [id number] 24 [facility] ([facility]) complet ed anthrax vaccine DoD vaccinia (smallpox) vaccine 1 2008 VV04-00 [id number] 75 Unknown (UNK) complet ed vaccinia (smallpox ) vaccine DoD anthrax vaccine 1 2008 [id number] 24 [employer] [place] ([facility]) complet ed anthrax vaccine DoD typhoid Vi capsular polysaccharid e vaccine 1 2008 [id number] 101 Sanofi Pasteur ([facility]) complet ed typhoid Vi capsular polysacch aride vaccine DoD influenza virus vaccine, live, attenuated, for intranasal use 1 2008 [id number] 111 Unknown (UNK) comple t ed influenza virus vaccine, live, attenuate d, for intranasa l use DoD TD(ADULT) UNSPECIFIED FORMULATION 2008 139 complet ed [employer] influenza virus vaccine, live, attenuated, for intranasal use 1 2007 [id number] 111 [employer]. (MED) complet ed influenza virus vaccine, live, attenuate d, for intranasa l use DoD hepatitis B vaccine, adult dosage 3 2006 [id number] 43 SmithKline (SKB) complet ed hepatitis B vaccine, adult [...] 2 Lf of diphtheria toxoid) 1 2005 [id number] 09 Sanofi Pasteur ([facility]) complet ed tetanus and diphtheri a toxoids, adsorbed, preservat michael free, for adult use (2 Lf of tetanus toxoid and 2 Lf of diphtheri a toxoid) DoD poliovirus vaccine, inactivated 1 2005 [id number] 10 Sanofi Pasteur ([facility]MC) complet ed polioviru s vaccine, inactivat ed DoD meningococcal polysaccharid e vaccine (MPSV4) 1 2005 [id number] 32 Sanofi Pasteur (PMC) complet ed meningoco ccal polysacch aride vaccine (MPSV4) DoD hepatitis A and hepatitis B vaccine 1 2005 [id number] 104 [employer]Kline (SKB) complet ed hepatitis A and hepatitis B vaccine DoD influenza virus vaccine, live, attenuated, for intranasal use 1 2005 [id number] 111 [employer]. (MED) complet ed influenza virus vaccine, live, attenuate d, for intranasa l use DoD VARICELLA 1988 21 complet ed [place] [facility] Encounters Combined list of: 1) Encounters from Department of Veterans Affairs facilities going back up to thelast 18 months. 2) Encounters from the Department of Defense facilities going back up to 280 months. Location Location Details Encounter Type Encounter Number Reason For Visit Attending Provider ADM Date DC Date [facility] [id number] SEEMA TATUM 10/09 [facility] OUT[facility] [id number] 05/27 Released w/o Limitations [facility] OUTPATIENT [id number] 11/21 Released w/o Limitations [facility] OUTPATIENT [id number] 12/11 Released w/o Limitations Theater Facilit y JOSEPH Falk([employer]or[employer] on Team) OUTPATIENT [id number] SHANNON Vaughn 07/25 Released w/o Limitations JOSEPH Addison(Scor pion Team) JOSEPH Falk([employer]orpi on Team) OUTPATIENT [id number] JOELLE Childs 08/12 Released with Work/Duty Limitations JOSEPH Addison(Scor pion Team) JOSEPH Falk(Optome try Clinic) OUTPATIENT [id number] [facility] UPDATE JOHN WOODARD 08/22 Released w/o Limitations JOSEPH Addison(Opto metry Clinic) JOSEPH Falk(Scorpi on Team) OUTPATIENT [id number] f/u on JOELLE Chamberlain 09/04 Released with Work/Duty Limitations Nawaf Segura a, MD(Scor pion Team) [facility] Optometry ) OUTPATIENT [id number] 5 old prescri p and request info about laser surgery JOCELYNE SCHWARTZ 12/08 Released w/o Limitations [facility] Optomet ry) [facility] Red) OUTPATIENT [id number] mha/430 [id number] LEOBARDO GRESHAM 03/17 Released w/o Limitations [facility] Red) [facility] M[facility] Green) OUTPATIENT [id number] pha/430 [id number] ROGELIO KENDRICK 03/18 Released w/o Limitations [facility] Green) [facility] Hearing Conservat ion) OUTPATIENT [id number] Notes Entered by: JUDAH OVERTON 18 Mar 2019 0957 ------- ------- ------- ------- -- Audiogr am JUDAH HUERTA 03/18 Released w/o Limitations [facility] Hearing Conserv ation) [facility] M[facility]C Blue) OUTPATIENT [id number] Notes Entered by: MEG REEVES 16 Jul 2019 0917 ------- ------- ------- ------- -- Flu late entry 019 MEG REEVES 07/16 Released w/o Limitations [facility] Blue) [facility] Optometry ) OUTPATIENT [id number] 2 WRESP JOCELYNE SCHWARTZ 08/19 Released w/o Limitations [facility] Optomet ry) [facility]) OUTPATIENT [id number] initial consult IFRAH NGUYEN 09/22 Released w/o Limitations [facility]hthal [facility]ology) [facility]hthal[facility]) OUTPATIENT [id number] BRIEF SHANNON SQUIRES 10/26 Released w/o Limitations [facility]) [facility] Ophthalmo [facility]) OUTPATIENT [id number] 1 consent SHANNON SQUIRES 10/28 Released with Work/Duty Limitations [facility]hthal [facility]) [facility] Ophthalmo [facility]y) OUTPATIENT [id number] 1 1 day pop lasSHANNON Milner 10/29 Released w/o Limitations [facility] Ophthal [facility]ology) [facility] Ophthalmo [facility]y) OUTPATIENT [id number] 7 1 week pop SHANNON Montenegro 11/03 Released w/o Limitations [facility] Ophthal [facility]) [facility] Optometry ) OUTPATIENT [id number] 7 f/u lasik surgery - [id number] JOCELYNE SCHWARTZ 11/30 Released w/o Limitations [facility] Optomet ry) [facility] Red) OUTPATIENT [id number] Sleep initial /////// LEOBARDO GRESHAM 12/08 Released w/o Limitations [facility] Red) [facility] M[facility]A Green) OUTPATIENT [id number] Notes Entered by: JUMA SANDOVAL 17 Dec 2019 1534 ------- ------- ------- ------- -- ROGELIO Ortega 12/16 Released w/o Limitations [facility] M[facility] Green) [facility]) TELE CONSULT [id number] Notes Entered by: Manju KENDRICK 21 Dec 2019 0828 ------- ------- ------- ------- -- FLY Phillips 12/20 [facility]) [facility]) OUTPATIENT [id number] Notes Entered by: ALISE BELTRAN 19 Jan 2020 1057 ------- ------- ------- ------- -- SINGH Mendoza 01/18 Released w/o Limitations [facility] Green) [facility] Hearing Conservat ion) OUTPATIENT [id number] Notes Entered by: Nicholas NICHOLAS 24 Jan 2020 1411 ------- ------- ------- ------- -- audiogr am ALANIS NICHOLAS 01/23 Released w/o Limitations [facility] Hearing Conserv ation) [facility] Red) [facility] [id number] 1 [facility] 3 [phone] FRANK TRONCOSO 01/30 Released w/o Limitations [facility] M[facility] Red) [facility]) TELE CONSULT [id number] Notes Entered by: FERMIN TORRESA Hammad 10 Feb 2020 0849 ------- ------- ------- ------- -- Pradip rdz to [facility] BOBBY VENCES 02/09 [facility]) [facility] Red) TELE CONSULT [id number] Notes Entered by: ANN TORRES BINH M 14 Feb 2020 0715 ------- ------- ------- ------- -- TEJINDER Bruno 02/13 [facility]) [facility] M[facility] Green) OUTPATIENT [id number] Notes Entered by: TEJINDER MCALLISTER 17 Feb 2020 1014 ------- ------- ------- ------- -- care coordin ation follow up TEJINDER MCALLISTER 02/16 Released w/o Limitations [facility] M[facility]A Green) [facility] M01A Green) OUTPATIENT [id number] Notes Entered by: TEJINDER MCALLISTER 23 Feb 2020 1447 ------- ------- ------- ------- -- new authori TEJINDER Edgar 02/22 Released w/o Limitations [facility] M01A Green) [place] [facility] Outpatient Encounter [id number] 07/29 [place] [facility] [place] [facility] Outpatient Encounter [id number] 07/29 [place] [facility] [place] [facility] Outpatient Encounter [id number] 09/07 [facility] PRO PHONE CALL 11-20 MIN [id number] Diagnos is: ICD-10- CM F41.9 Anxiety disorde r, unspeci fied
KEITH ACEVEDO ES Piyush 09/07 [facility] ([facility] PRO PHONE CALL 11-20 MIN [id number] Diagnos is: ICD-10- CM F41.9 Anxiety disorde r, unspeci fied
KEITH ACEVEDO ES D 09/07 [place] [facility] [place] [facility] Outpatient Encounter [id number] 09/14 [facility] [place] [facility] Outpatient Encounter [id number] 10/11 [facility] Procedures Combined list of: 1) Procedures from Department of Veterans Affairs facilities going back up to thelast 18 months, not all VA non-surgical procedures are included; 2) All procedures from the Department of Defense facilities. Procedure Procedure Type Code Date Perfomer Comments [facility] e SKIN TEST; TUBERCULOSIS, INTRADERMAL [facility] IMMUNIZATION ADMINISTRATION (INCLUDES PERCUTANEOUS, INTRADERMAL, SUBCUTANEOUS, OR INTRAMUSCULAR INJECTIONS); 1 VACCINE (SINGLE OR COMBINATION VACCINE/TOXOID) [facility] HEPATITIS A AND HEPATITIS B VACCINE (HEPA-HEPB), ADULT DOSAGE, FOR INTRAMUSCULAR USE [facility] FITTING OF SPECTACLES, EXCEPT FOR APHAKIA; MONOFOCAL [facility] SKIN TEST; TUBERCULOSIS, INTRADERMAL [facility] SKIN TEST; TUBERCULOSIS, INTRADERMAL [facility] COORDINATED CARE FEE, RISK ADJUSTED MAINTENANCE [facility] COORDINATED CARE FEE, RISK ADJUSTED MAINTENANCE [facility] SCREENING TEST OF VISUAL ACUITY, QUANTITATIVE, BILATERAL [facility] PATIENT EDUCATION, NOT OTHERWISE CLASSIFIED, NON-PHYSICIAN PROVIDER, INDIVIDUAL, PER SESSION [facility] TELE ASSESS & MGT SRV PROV QUAL NONPHYS HLTH CARE PRO TO EST PAT,PARENT,GUARD NOT ORIG REL ASSESS & MGT SRV PROV W/IN PREV 7 DAYS NOR LEAD ASSESS & MGT SRV/PX W/IN NXT 24 HR/SOON APT;5-10 MIN MED DIS [facility] BRIEF EMOTIONAL/BEHAVIORA L ASSESSMENT (EG, DEPRESSION INVENTORY, ATTENTION-DEFICIT/H YPERACTIVITY DISORDER [ADHD] SCALE), WITH SCORING AND DOCUMENTATION, PER STANDARDIZED INSTRUMENT [facility] LASER IN SITU KERATOMILEUSIS (LASIK) [facility] POSTOPERATIVE FOLLOW-UP VISIT, NORMALLY INCLUDED IN THE SURGICAL PACKAGE, INDICATE THAT EVALUATION & MANAGEMENT SERVICE WAS PERFORMED DURING A POSTOPERATIVE PERIOD REASON RELATED ORIGINAL PROCEDURE [facility] POSTOPERATIVE FOLLOW-UP VISIT, NORMALLY INCLUDED IN THE SURGICAL PACKAGE, INDICATE THAT EVALUATION & MANAGEMENT SERVICE WAS PERFORMED DURING A POSTOPERATIVE PERIOD REASON RELATED ORIGINAL PROCEDURE [facility] LASER IN SITU KERATOMILEUSIS (LASIK) [facility] OPHTHALMOLOGICAL SERVICES: MEDICAL EXAMINATION AND EVALUATION, WITH INITIATION OR CONTINUATION OF DIAGNOSTIC AND TREATMENT PROGRAM; INTERMEDIATE, ESTABLISHED PATIENT [facility] OPHTHALMIC ULTRASOUND, ECHOGRAPHY, DIAGNOSTIC; CORNEAL PACHYMETRY, UNILATERAL OR BILATERAL (DETERMINATION OF CORNEAL THICKNESS) [facility] COMPUTERIZED CORNEAL TOPOGRAPHY, UNILATERAL OR BILATERAL, WITH INTERPRETATION AND REPORT [facility] IMMUNIZATION ADMINISTRATION (INCLUDES PERCUTANEOUS, INTRADERMAL, SUBCUTANEOUS, OR INTRAMUSCULAR INJECTIONS); 1 VACCINE (SINGLE OR COMBINATION VACCINE/TOXOID) [facility] PURE TONE AUDIOMETRY (THRESHOLD), AUTOMATED; AIR ONLY [facility] SCREENING TEST OF VISUAL ACUITY, QUANTITATIVE, BILATERAL [facility] BRIEF EMOTIONAL/BEHAVIORA L ASSESSMENT (EG, DEPRESSION INVENTORY, ATTENTION-DEFICIT/H YPERACTIVITY DISORDER [ADHD] SCALE), WITH SCORING AND DOCUMENTATION, PER STANDARDIZED INSTRUMENT [facility] FITTING OF SPECTACLES, EXCEPT FOR APHAKIA; MONOFOCAL [facility] SCREENING TEST OF VISUAL ACUITY, QUANTITATIVE, BILATERAL 011 [facility] Ear mold/insert, not disposable, any type CASILLASGAXIOL AJUDAH Patient education, not otherwise cla ified, non-physician provider, individual, per se ion CASILLASGAXIOL AJUDAH Threshold Audiogram (Pure Tone) Automated Threshold Audiogram (Pure Tone) Automated 0208T CASILLASGAXIOL A, JUDAH Paul Psychometric Emotional / Behavioral A e ment Psychometric Emotional / Behavioral Assessment [phone] LEOBARDO GRESHAM [facility] Spectacles Services Fitting Monofocal Except For Aphakia Spectacles Services Fitting Monofocal Except For Aphakia [id number] JOCELYNE SCHWARTZ [facility] Ophthalmological New Patient Start Comprehensive Care Ophthalmological New Patient Start Comprehensive Care [phone] JOCELYNE SCHWARTZ [facility] Determination Of Refractive State Determination Of Refractive State [phone] JOCELYNE SCHWARTZ [facility] Screening Test Of Visual Acuity, Quantitative, Bilateral Screening Test Of Visual Acuity, Quantitative, Bilateral [phone] JOHN [facility]OD[facility] [place] WITHOUT GLASSES 20/400 OU VA WITH GLASSES 20/20 OU [facility] UPDATED 12/04 FOR VISION READINESS. [facility] Determination Of Refractive State Determination Of Refractive State [phone] ALICE TATUM Spectacles Services Fitting Monofocal Except For Aphakia Spectacles Services Fitting Monofocal Except For Aphakia [phone] ALICE TATUM [facility] Influenza Split Virus Vaccine IM With Preservative Quadrivalent 0.50mL Dosage Influenza Split Virus Vaccine IM With Preservative Quadrivalent 0.50mL Dosage 95446 MEG REEVES [facility] Immunization Administration By Injection, One Vaccine Immunization Administration By Injection, One Vaccine 49568 MEG REEVES [facility] Ophthalmological Prior Patient Start Comprehensive Care Ophthalmological Prior Patient Start Comprehensive Care 53772 EFREN [facility] Determination Of Refractive State Determination Of Refractive State 25440 SCHWARTZ [facility] Computerized Corneal Topography Computerized Corneal Topography 39545 [place] [facility] Ophthalmological New Patient Start Comprehensive Care Ophthalmological New Patient Start Comprehensive Care 55168 IFRAH NGUYEN [facility] Corneal Pachymetry Both Eyes Corneal Pachymetry Both Eyes 31572 IFRAH NGUYEN [facility] Laser in situ keratomileusis (LASIK) JIMBO ROJAS see [facility] for surgery documents [facility] Postoperative Visit, Without Charge Postoperative Visit, Without Charge 61198 SHANNON SQUIRES [facility] Laser in situ keratomileusis (LASIK) JOCELYNE SCHWARTZ [facility] Behavioral health outreach service (planned approach to reach a targeted population) LEOBARDO GRESHAM [facility] Psychometric Emotional / Behavioral A e ment Psychometric Emotional / Behavioral Assessment 54369 LEOBARDO GRESHAM BHM-20, CSSRS, RIP, [place] Sleepiness scale [facility] Non-Physician Phone Call To Patient/Provider Brief (5-10min) Non-Physician Phone Call To Patient/Provider Brief (5-10min) [id number] FLY SHER [facility] Threshold Audiogram (Pure Tone) Automated Threshold Audiogram (Pure Tone) Automated 0208T ALANIS NICHOLAS [facility] Patient education, not otherwise cla ified, non-physician provider, individual, per se ALANIS Jiang [facility] Coordinated care fee, risk adjusted maintenance TEJINDER MCALLISTER [facility] Social History Combined list of available smoking, tobacco, and other social history from Department of Defense and Veterans Affairs facilities. Social History Type Response Date Comment Sourc e Tobacco smoking status NHIS LIFETIME NON-TOBACCO USER 12/18/2010 [facility] This section is an empty social history section. [facility] Plan of Care List of future care activities from Department of Veterans Affairs facilities. Additional future care activities may be listed in the Assessment and Plan section. 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
--- OUTSIDE RECORDS SUMMARY | 2024-10-17 03:32 | XMS_ITS | Referral Summary ---
Author Organization [facility] Address [address] [place] [address] Care Team Providers Care Mental Hygiene Consultant Name Role Phone None Reported, Pcp Primary Care Provider Unavail able Source Comments Patient records contain information from all sites at [facility]. For routine questions regarding patient records, call [phone] during business hours, M-F 8:00 AM - 5:00 PM Central Time. Record requests for emergency care only can be directed to [phone] at any time.[facility] Allergies No known active allergies Medications * This document contains information received from the source organization and may not represent a complete record from that organization. esomeprazole (NexIUM) [address] capsule Take 1 tablet by mouth daily. 12/18/2010 Active amoxicillin-pot clavulanate (AUGMENTIN) 875-125 mg per tablet 02/22/2022 Active traMADoL (ULTRAM) 50 mg tablet Take 50 mg by mouth every 6 (six) hours as needed. 11/30/2010 Active polyethylene glycol-electroly [place]ol[place] (GoLYTELY) 236-22.74-6.74 -5.86 gram solution 05/28/2022 Active omeprazole (PriLOSEC) [address] capsule TAKE 1 CAPSULE BY MOUTH DAILY 90 capsule 3 02/25/2024 4:23 PM CDT 08/07/2023 Active Active Problems Problem Noted Date [...] often do you attend chur ch or sikhism services? Never 03/14/2021 Do you belong to any clubs o r organizations such as orthodox groups, unions, fraternal or athletic groups, or [...] Date Recorded PHQ-2 Score 0 03/15/2021 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 Gender Identity Male 03/14/2021 9:46 PM CDT Sexual Orientation Straight 03/14/2021 9: 46 PM CDT Last Filed Vital Signs Vital Sign Reading Time Taken Comments Blood Pressure 138/89 06/14/2021 10:05 AM CDT Pulse 68 06/14/2021 10:05 AM CDT Temperature 36.2 C (97.1 F) 02/24/2023 3:27 PM CDT Respiratory Rate 16 06/14/2021 10:05 AM CDT Oxygen Saturation 98% 06/14/2021 10:05 AM CDT Inhaled Oxygen Concentration - - Weight 105 kg (231 lb 7.7 oz) 02/24/2023 3:27 PM CDT Height 173.6 cm (5' 8.35) 02/24/2023 3:27 PM CD T Body Mass Index 34.84 02/24/2023 3:27 PM CDT Plan of Treatment Not on file Medical Devices Implanted Type Area Journeyman Mechanic Device Identifier Shelf Expiration Date Model / Serial / Lot Trimed-Screw Magalie. 2.3mm X 22mm - [employer]ajas [id number] Implanted:Qty: 1 on 12/03/2012 Hardware e.g. pins/screws/ rods [employer] Description:Device Manufactu rer - Tr[employer]ed Inc.. Device Status Text - [id number]. Trimed K-Wire 0.8 120mm - [place] [id number] Implanted:Qty: 4 on 12/03/2012 Hardware e.g. pins/screws/ rods [employer] Description:Device Manufactu rer - [employer].. Device Status Text - [id number]. Trimed-Screw Magalie. 2.3mm X 24mm - [place] [id number] Implanted:Qty: 1 on 12/03/2012 Hardware e.g. pins/screws/ rods [employer] Description:Device Manufactu rer - Tr[employer] Inc.. Device Status Text - [id number]. Self Tap-Screw 4.5 X 100 - [place]ajas [id number] Implanted:Qty: 1 on 08/25/2017 Hardware e.g. pins/screws/ rods [employer]ynthes Description:Device Manufactu rer - Synthes. Device Status Text - [id number]. Self Tap-Screw 4.5 X 64 - [place] [id number] Implanted:Qty: 1 on 08/25/2017 Hardware e.g. pins/screws/ rods [employer]ynthes Description:Device Manufactu rer - Synthes. Device Status Text - [id number]. Self Tap-Screw 4.5 X 76 - [place] [id number] Implanted:Qty: 1 on 08/25/2017 Hardware e.g. pins/screws/ rods [employer]ynthes Description:Device Manufactu rer - Synthes. Device Status Text - HARDWARE-[id number]. Insurance Care Teams Mental Hygiene Consultant Relationship Specialty Start Date End Date None Reported, Pcp PCP - General Family Medicine 07/19/24
--- OUTSIDE RECORDS SUMMARY | 2024-10-17 03:32 | XMS_ITS | Clinical Summary ---
Author Organization [facility] [address] [facility] lin Address [address] [facility] [place] [address] Care Team Providers Care Lead Data Architect Name Role Phone Unavailable Primary Care Provider Unavailabl e Social History Tobacco Use Types Packs/Day Years Used Date Smoking Tobacco: Never Assessed Sex and Gender Information Value Date Recorded Sex Assigned at Not on file Legal Sex Male 1:49 PM EDT Gender Identity Not on file Sexual Orientation Not on file Plan of Treatment Health Maintenance Due Date Last Done Comments Depression: Screening Annual ly using PHQ-2/9 in Adults 18 yrs or above (or HM Modifier)([facility]) 12/15/2001 Hepatitis C Virus Infection in Adolescents and Adults: Screening (or Modifier) ([facility]) 12/15/2001 SDOH Screening Reminder: Radha ually for all adults ([facility]) 12/15/2001 Tobacco Smoking Cessation: i n Adults excluding Women: Behavioral and Pharmacotherapy Interventions ([facility]) 12/15/2001 DTaP/Tdap/Td Vaccines ([facility]) (1 - Tdap) 12/15/2002 Lipid Screening: Every 5 yrs for Men aged 35+ (or HM Modifier) ([facility]) 2019 Flu Vaccination: Yearly for ages 18mos through 64 years (or Modifier)([facility]) 05/06/2024 COVID-19 Vaccine Screening: Initial Series and Booster Status ([facility]) ( - 2023-25 season) 2024 Zoster/Shingles Vaccine Seri es Screening: Adults aged 18+ yrs (or HM Modifiers)([facility]) (1 of 2) 12/15/2033 Pneumococcal Vaccination Scr eening: Pts 0-19 & 19-64 yrs of age ([facility]) Aged Out No longer eligible based on patient's age to complete this topic Medical Devices Not on file
--- OUTSIDE RECORDS SUMMARY | 2024-10-17 03:32 | XMS_ITS | Encounter Summary ---
Author Name [facility] Organization [facility] Address [address] [place] [address] Support Name Relationship Address Phone RANCHO SEGURA Next of Kin [phone] [place] [address] RANCHO SEGURA Emergency Contact [phone] [place] [address] Insurance Providers: All historical and current Section Date Range: From patient's date of to the date document was created. This section includes the names of all active insurance providers for the patient. Insurance Provider Type of Coverage Plan Name Start of Policy Coverage End of Policy Coverage Group Number Member ID Insurance Provider's Telephone Number Policy Bartholomew's Name Patient's Relationship to Policy Bartholomew [place] FEP PREFERRED PROVIDER ORGANIZAT ION (PPO) FEP BASIC 2009 PLAN [phone] [id number] [phone] Nicholas [facility] PATIENT [place] FEP RX PRESCRIPT ION FEPRX Dec 17, 2010 [id number] JOSÉ SEGURA PATIENT Selected Encounter This section includes the information on record at [place] for the Encounter. Date/Time Encounter Type Encounter Description Reason Pro vider Source Oct 11, 2024 09:33 AM Outpatient Encounter [facility] Encounter Template Text not used by [place] Plan of Treatment: Future Appointments (+ 6 months) and Future Tests (+/- 45 days) The Plan of Treatment section includes future care activities for the patient from all [place] treatmentfacilities. This section includes future appointments and future orders which are active, pending or scheduled. Future Appointments This section includes appointments that were scheduled to occur 6 months from the date of the Encounter, up to a maximum of 20 appointments. The data comes from all [place] treatment facilities. Appointment Date/Time Appointment Type Appointme nt Facility Name Oct 20, 2024 08:00 AM AMBULATORY - PSYCHIATRY RO [facility] ([facility]) Oct 20, 2024 08:30 AM AMBULATORY - PSYCHIATRY [facility] ([facility]) Active, Pending, and Scheduled Orders This section includes a listing of several types of active, pending, and scheduled orders, including clinic medications orders, diagnostic test orders, procedure orders and consult orders; where the start date of the order is 45 days before the date of the Encounter or 45 days after the date of theEncounter. The data comes from all [place] treatment [facility]. Test Date/Time Test Type Test Details Facility Name Sep 07, 2024 09:19 AM Consult Order TESSY OCONNORI P INTAKE OUTPT Cons Inbound Telemarketer's Choice [place] ([facility]) Social History: Smoking Status (Most current) and Tobacco Use (All prior to encounter date) This section includes the most current, and the historical, smoking and tobacco- related health factors from the [place] facility where the Encounter took place. Current Smoking Status This section includes the most current smoking, or tobacco-related health factor, from the [place] facility where the Encounter took place. Date/Time Current Smoking Status Comment Justin henderson Dec 18, 2010 04:24 PM LIFETIME NON-TOBACCO USER [facility] Encounter Notes: All associated encounter notes This section contains the clinical notes associated to the Encounter. Date/Time Encounter Note(s) Provider Source Oct 11, 2024 09:33 AM TELEHEALTH NOTE: LOCAL TITLE: TELEHEALTH TECHNOLOGY SCREENING (TTS) STANDARD TITLE: TELEHEALTH NOTE DATE OF NOTE: OCT 11, 2024@09:33 ENTRY DATE: OCT 11, 2024@09:33:56 AUTHOR: BAYRON BARONE EXP COSIGNER: URGENCY: STATUS: COMPLETED unable to do [facility] ([facility]) at this time. Unable to complete screen. Voice message left requesting back at: [id number] [email or web address] also has bad address listed in chart. when rtn's call, please confirm mailing address, [address] [place] [address] /es/ BAYRON BARONE [facility] ATHLETE MARKETING AGENT, TCT Signed: 10/11/2024 09:35 BAYRON BARONE ([facility])
--- OUTSIDE RECORDS SUMMARY | 2024-10-17 03:32 | XMS_ITS | Clinical Summary ---
Author Organization [facility] Address [address] [place] [address] Care Team Providers Care Rn Charge Name Role Phone None Reported, Pcp Primary Care Provider Unavail able Source Comments Patient records contain information from all sites at [facility]. For routine questions regarding patient records, call [phone] during business hours, M-F 8:00 AM - 5:00 PM Central Time. Record requests for emergency care only can be directed to [phone] at any time.[facility] Allergies No known active allergies [...] often do you attend chur ch or baptism services? Never 03/14/2021 Do you belong to any clubs o r organizations such as baptist groups, unions, fraternal or [...] Answer Date Recorded PHQ-2 Score 0 03/15/2021 [facility] - Occupational [...] or slept in a usp (including now)? 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 Gender Identity Male 03/14/2021 9:46 PM CDT [...] C Screening 1983 Lipid (Cholesterol) Screening 1983 IPV Vaccines (2 of 3 - Adult catch-up series) 11/07/2005 10/10/2005 Depression Screening (Annual PHQ-2) 10/06/2024 DTaP,Tdap,and Td Vaccines (3 - Td or Tdap) 10/08/2032 10/08/2022, 07/29/2012, 10/06/2008, Additional history exists Hepatitis A Vaccines Completed 07/12/2007, 11/12/2005, 10/10/2005 Hepatitis B Vaccines Completed 07/12/2007, 11/12/2005, 10/10/2005 Orthopoxvirus Vaccine Completed 01/30/2009 Pneumococcal vaccine (0-49 years) Aged Out 10/27/2012 No longer eligible based on patient's age to complete this topic COVID-19 Vaccine Completed 07/29/2024, , 08/27/2021, Additional history exists Influenza Vaccine Completed 07/29/2024, , 07/11/2022, Additional history exists HPV Vaccines Aged Out No longer eligi ble based on patient's age to complete this topic Medical Devices Implanted Type Area Natural Resource Officer Device Identifier Shelf Expiration Date Model / Serial / Lot Trimed-Screw Magalie. 2.3mm X 22mm - Barajas [id number] Implanted:Qty: 1 on 12/03/2012 Hardware e.g. pins/screws/ rods [employer] Description:Device Manufactu rer - [employer].. Device Status Text - [id number]. Trimed K-Wire 0.8 120mm - [place]ajas [id number] Implanted:Qty: 4 on 12/03/2012 Hardware e.g. pins/screws/ rods [employer] Description:Device Manufactu rer - Trimed Inc.. Device Status Text - [id number]. Trimed-Screw Magalie. 2.3mm X 24mm - Barajas [id number] Implanted:Qty: 1 on 12/03/2012 Hardware e.g. pins/screws/ rods [employer] Description:Device Manufactu rer - Trimed Inc.. Device Status Text - [id number]. Self Tap-Screw 4.5 X 100 - Barajas [id number] Implanted:Qty: 1 on 08/25/2017 Hardware e.g. pins/screws/ rods [employer]uy Synthes Description:Device Manufactu rer - Synthes. Device Status Text - [id number]. Self Tap-Screw 4.5 X 64 - Barajas [id number] Implanted:Qty: 1 on 08/25/2017 Hardware e.g. pins/screws/ rods [employer]ynthe[employer] Description:Device Manufactu rer - Synthes. Device Status Text - [id number]. Self Tap-Screw 4.5 X 76 - [place] [id number] Implanted:Qty: 1 on 08/25/2017 Hardware e.g. pins/screws/ rods [employer]ynthe[employer] Description:Device Manufactu rer - Synthes. Device Status Text - HARDWARE-[id number]. Insurance Member Subscriber Plan / Payer (Ef fective 2020-Present) Name:Jhon Banegas Relation to Subscriber:Self Name:Jhon Banegas Payer ID:[id number] (NAIC) Group ID:Not on file Type:Indemnity Address: [employer] [facility] [address] [place] [address] Care Teams Rn Charge Relationship Specialty Start Date End Date None Reported, Pcp PCP - General Family Medicine 07/19/24
--- OUTSIDE RECORDS SUMMARY | 2024-10-17 03:32 | XMS_ITS | Clinical Summary ---
Author Organization [facility] [employer] Address [address] [place] [address] Care Team Providers Care Reserve Operator Name Role Phone Inactive, Administrativel Primary Care Provider Source Comments If you need additional information that is not available on Care Everywhere, please contact our Medical Records Department during business hours (Friday - Friday, 8 am - 5 pm) at . 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 Gender Identity Not on file Sexual Orientation Not on file Plan of Treatment Health Maintenance Due Date Last Done Comments DEPRESSION/ANXIETY PHQ4 1995 LIPID SCREEN 12/15/2001 WELLNESS VISIT 12/15/2001 DTaP/Tdap/Td Vaccine (1 - Tdap) 12/15/2002 Hepatitis B Vaccine (1 of 3 - 19+ 3-dose series) 12/15/2002 PERTUSSIS 12/15/2002 COVID-19 Vaccine ( - 2023-2 5 season) 2024 Influenza Vaccine (#1) 2024 RSV Vaccines (1 - 1-dose 75+ series) 12/15/2058 HPV Vaccine Aged Out No longer eligi ble based on patient's age to complete this topic POLIO (IPV) Vaccine Aged Out No longe r eligible based on patient's age to complete this topic Pneumococcal Vaccine: Pediat rics (0 to 5 Years) and At-Risk Patients (6 to 49 Years) Aged Out No longer eligi ble based on patient's age to complete this topic Care Teams Reserve Operator Relationship Specialty Start Date End Date Inactive, Administrativel [id number] [facility] [place] [address] PCP - General 10/25/15
--- OUTSIDE RECORDS SUMMARY | 2024-10-17 03:43 | XMS_ITS | Continuity of Care Document ---
Author Name [facility] Organization [facility] Care Team Providers Care Fisheries Enforcement Officer Name Role Phone [facility] Unavailable Unavailable Problems Combined list of problems from Department of Defense and Veterans Affairs facilities. It does not include entries that were removed or entered in error. Problem Status Onset Date Problem Type Date of Resolution Comments Source visit for: screening exam depression Inactive 07/26/20 11 Condition [facility]D Myopia, bilateral Active 10/03/18 99 Condition [facility] Regular astigmatism, bilateral Active 10/03/18 99 Condition [facility] Adjustment Disorder with Anxiety (ICD-9-CM 309.24) Active Condition [facility] Concussion W/O Coma Active [facility] Gastroesophageal Reflux Disorder * (ICD-9-CM 530.81) Active Condition [facility] Headaches * (ICD-9-CM 784.0) Active Condition [facility] Pain in joint involving shoulder region (ICD-9-CM 719.41) Active Condition [facility] Psychological factors affecting other physical condition (ICD-9-CM 316./V62.89) Active Condition [facility] visit for: services physical Active Condition [facility] tendonitis bicipital left Active Condition DoD epistaxis Inactive Condition DoD joint pain, localized in the left shoulder Active Condition [facility] assessment of patient condition work status Inactive Condition [facility] blepharitis Inactive Condition [facility] gastroenteritis Inactive Condition [facility] visit for: examination of subpopulation Inactive Condition [facility] astigmatism Inactive Condition [facility] refractive error - myopia Inactive Condition [facility] Diagnosis: ICD-10-CM F41.9 Anxiety disorder, unspecified Active Diagnosis [facility] Medications Combined list of outpatient [...] ORAL, [facility], 1000 ea. BOTTLE Active [id number] 2023 30 Pharmac y Data Transac tion Service Facilit y ESOMEPRAZOL E MAGNESIUM 40MG CAP,EC TAKE 1 CAPSULE BY MOUTH EVERY DAY ORAL ACTIVE NENA SUE ER A 2010 [facility] HYDROCODONE -ACETAMINOP HEN (HYDROCODON E/ACETAMINO PHEN), 5MG-325MG, TABLET, ORAL, MALLINCKROD T PH, 500 ea. BOTTLE Active [id number] 2023 21 Pharmac y Data Transac tion Service Facilit y METHYLPREDN ISOLONE (methylpred nisolone), 4 MG, TAB DS PK, ORAL, [facility], 21 ea. DOSE-PACK Active [id number] 2023 21 Pharmac y Data Transac tion Service Facilit y OMEPRAZOLE (omeprazole ), 20 MG, CAPSULE DR, ORAL, [employer], 1000 ea. BOTTLE Active [id number] 2023 90 Pharmac y Data Transac tion Service Facilit y OMEPRAZOLE (OMEPRAZOLE ), 20MG, CAPSULE DR, ORAL, '[facility], 1000 ea. BOTTLE Active [id number] 4 2023 90 Pharmac y Data Transac tion Service Facilit y Allergies, Adverse Reactions, Alerts Combined list of allergies from Department of Defense and Veterans Affairs facilities. It does not include entries that were removed or entered in error. Substance Category Reaction Severity Reaction type Status Date Reported Comments Source No Known Allergies Drug allergy (disorder) active 12/08/2018 Nawaf Santos [facility] Immunizations Combined list of available immunizations from the Department of Defense and Veterans Affairs facilities. Immunization Series Date Given Administered By Site Reaction Lot Number CVX Code Drug Vibratory Pile Driver Status Comments Source COVID-19 (MODERNA), MRNA, LNP-S, PF, 50 MCG/0.5 ML (AGES 12+ YEARS) 2023 312 complet ed [facility] INFLUENZA, SPLIT VIRUS, TRIVALENT, PF 2023 140 complet ed [facility] PNEUMOCOCCAL CONJUGATE PCV20, POLYSACCHARID E [id number] CONJUGATE, ADJUVANT, PF 2023 216 complet ed [facility] COVID-19 (MODERNA), MRNA, LNP-S, PF, 50 MCG/0.5 ML (AGES 12+ YEARS) 2022 312 complet [facility] INFLUENZA, MDCK, QUADRIVALENT, PF 2022 171 complet [facility] TD (ADULT), 2 LF TETANUS TOXOID, PRESERVATIVE FREE, ADSORBED 2022 09 complet [facility] INFLUENZA, MDCK, QUADRIVALENT, PF 2021 171 complet [facility] COVID-19 (MODERNA), MRNA, LNP-S, PF, 100 MCG/0.5ML DOSE OR 50 MCG/0.25ML DOSE 2020 207 complet [facility] COVID-19, mRNA, LNP-S, PF, 100 mcg or 50 mcg dose 2020 REECE MAYEN () Not Given COVID-19, mRNA, LNP-S, PF, 100 mcg or 50 mcg dose DoD INFLUENZA, SPLIT VIRUS, QUADRIVALENT, PF 2020 150 complet [facility] COVID-19 (MODERNA), MRNA, LNP-S, PF, 100 MCG/0.5ML DOSE OR 50 MCG/0.25ML DOSE 2020 207 complet [facility] COVID-19 (MODERNA), MRNA, LNP-S, PF, 100 MCG/0.5ML DOSE OR 50 MCG/0.25ML DOSE 2020 207 complet [facility] INFLUENZA, SPLIT VIRUS, QUADRIVALENT, PF 2019 150 complet [facility] Influenza, injectable, quadrivalent, preservative free 1 2018 [id number] 150 Transcribed (TRS) complet Influenza , injectabl e, quadrival ent, preservat michael free DoD Influenza, injectable, quadrivalent, preservative free 1 2018 [id number] 150 Seqirus (SEQ) complet ed Influenza , injectabl e, quadrival ent, preservat michael free [facility] INFLUENZA, SPLIT VIRUS, QUADRIVALENT, PRESERVATIVE 2017 158 complet [facility] influenza virus vaccine, unspecified formulation 1 2017 UNK 88 Unknown (UNK) comple t ed influenza virus vaccine, unspecifi ed formulati on DoD influenza, injectable, quadrivalent, contains preservative 1 2016 [id number] 158 [employer] (SEQ) comple t ed influenza , injectabl e, quadrival ent, contains preservat michael DoD INFLUENZA, HIGH-DOSE, TRIVALENT, PF 2016 135 complet ed [facility] Influenza, seasonal, injectable 1 2015 [id number] 141 [employer] (SEQ) comple t ed Influenza , seasonal, injectabl e DoD INFLUENZA, SPLIT VIRUS, TRIVALENT, PF 2015 140 complet ed [facility] Influenza, seasonal, injectable 1 2015 [id number] 141 Novartis [employer]AMP [employer] Preeti. (AUG) complet ed Influenza , seasonal, injectabl e DoD INFLUENZA, SPLIT VIRUS, TRIVALENT, PF 2015 140 complet ed [facility] INFLUENZA, SPLIT VIRUS, TRIVALENT, PRESERVATIVE 2014 141 complet ed [facility] measles, mumps and rubella virus vaccine 2 2014 UNK 03 Unknown (UNK) Not Given measles, mumps and rubella virus vaccine DoD varicella virus vaccine 1 2014 UNK 21 Unknown (UNK) Not Given varicella virus vaccine DoD INFLUENZA, HIGH-DOSE, TRIVALENT, PF 2013 135 complet ed [facility] Influenza, injectable, quadrivalent, preservative free 1 2013 [id number] 150 Unknown (UNK) comple t ed Influenza , injectabl e, quadrival ent, preservat michael free DoD INFLUENZA, SPLIT VIRUS, TRIVALENT, PRESERVATIVE 2013 141 complet ed [facility] INFLUENZA, SPLIT VIRUS, QUADRIVALENT, PF 2013 150 complet ed [facility] Influenza, injectable, Madin Grace Canine Kidney, preservative free 1 2012 [id number] 153 Novartis [employer]AMP [employer] Preeti. (AUG) complet ed Influenza , injectabl e, Madin Grace Canine Kidney, preservat michael free DoD INFLUENZA, HIGH-DOSE, TRIVALENT, PF 2012 135 complet ed [facility] INFLUENZA, SPLIT VIRUS, TRIVALENT, PRESERVATIVE 2012 141 complet [facility] PNEUMOCOCCAL POLYSACCHARID E PPV23 2012 33 complet [facility] INFLUENZA, SPLIT VIRUS, TRIVALENT, PF 2011 140 complet [facility] TDAP 2011 115 complet [facility] tetanus toxoid, reduced diphtheria toxoid, and acellular pertu is vaccine, adsorbed 1 2011 [id number] 115 Sanofi Pasteur ([facility]) complet ed tetanus toxoid, reduced diphtheri a toxoid, and acellular pertussis vaccine, adsorbed DoD Influenza, seasonal, injectable, preservative free 1 2011 [id number] 140 Space [employer] (SKB) complet ed Influenza , seasonal, injectabl e, preservat michael free DoD Influenza, seasonal, injectable, preservative free 1 2010 [id number] 140 [employer]. (MED) complet ed Influenza , seasonal, injectabl e, preservat michael free DoD INFLUENZA, UNSPECIFIED FORMULATION 2009 88 complet [facility] influenza virus vaccine, split virus (incl. purified surface antigen)-reti red CODE 1 2009 [id number] 15 [employer] (CSL) complet influenza virus vaccine, split virus (incl. purified surface antigen)- retired CODE [facility] Novel influenza-H1N 1-09, injectable 1 2008 [id number] 127 Novartis Pharmaceutica [employer] Preeti. (NOV) complet ed Novel influenza -F7M5-39, injectabl e DoD anthrax vaccine 3 2008 [id number] 24 Unknown (UNK) comple t ed anthrax vaccine DoD influenza virus vaccine, split virus (incl. purified surface antigen)-reti red CODE 1 2008 [id number] 15 Sanofi Pasteur (PMC) complet ed influenza virus vaccine, split virus (incl. purified surface antigen)- retired CODE DoD anthrax vaccine 2 2008 [id number] 24 [facility] ([facility]) complet ed anthrax vaccine DoD vaccinia (smallpox) vaccine 1 2008 [id number] [id number] 75 Unknown (UNK) complet ed vaccinia (smallpox ) vaccine DoD anthrax vaccine 1 2008 [id number] 24 [employer] [place] ([facility]) complet ed anthrax vaccine DoD typhoid Vi capsular polysaccharid e vaccine 1 2008 [id number] 101 Sanofi Pasteur (PMC) complet ed typhoid Vi capsular polysacch aride vaccine DoD influenza virus vaccine, live, attenuated, for intranasal use 1 2008 [id number] 111 Unknown (UNK) comple t ed influenza virus vaccine, live, attenuate d, for intranasa l use DoD TD(ADULT) UNSPECIFIED FORMULATION 2008 139 complet ed [employer] influenza virus vaccine, live, attenuated, for intranasal use 1 2007 [id number] 111 [employer]. (MED) complet ed influenza virus vaccine, live, [...] 2 Lf of diphtheria toxoid) 1 2005 [id number] 09 Sanofi Pasteur (PMC) complet ed tetanus and diphtheri a toxoids, adsorbed, preservat michael free, for adult use (2 Lf of tetanus toxoid and 2 Lf of diphtheri a toxoid) DoD poliovirus vaccine, inactivated 1 2005 [id number] 10 Sanofi Pasteur (PMC) complet ed polioviru s vaccine, inactivat ed DoD meningococcal polysaccharid e vaccine (MPSV4) 1 2005 [id number] 32 Sanofi Pasteur (PMC) complet ed meningoco ccal polysacch aride vaccine (MPSV4) DoD hepatitis A and hepatitis B vaccine 1 2005 [id number] 104 [employer] (SKB) complet ed hepatitis A and hepatitis B vaccine DoD influenza virus vaccine, live, attenuated, for intranasal use 1 2005 [id number] 111 [employer]. (MED) complet ed influenza virus vaccine, live, attenuate d, for intranasa l use DoD VARICELLA 1988 21 complet ed [place] [facility] Encounters Combined list of: 1) Encounters from Department of Veterans Affairs facilities going back up to thelast 18 months. 2) Encounters from the Department of Defense facilities going back up to 280 months. Location Location Details Encounter Type Encounter Number Reason For Visit Attending Provider ADM Date DC Date Status [facility]PAT[facility] [id number] SEEMA TATUM 10/09 [facility] [id number] 05/27 Released w/o Limitations [facility] OUTPAT[facility] [id number] 11/21 Released w/o Limitations [facility] OUTPATIENT [id number] 12/11 Released w/o Limitations Theater Facilit y JOSEPH Falk(Scorpi on Team) OUTPATIENT [id number] SHANNON Vaughn 07/25 Released w/o Limitations JOSEPH Addison(Scor pion Team) JOSEPH Falk(Scorpi on Team) OUTPATIENT [id number] JOELLE Childs 08/12 Released with Work/Duty Limitations JOSEPH Addison(Scor pion Team) JOSEPH Falk(Optome try Clinic) OUTPATIENT [id number] [facility] UPDATE JOHN WOODARD 08/22 Released w/o Limitations JOSEPH Addison(Opto metry Clinic) JOSEPH Falk(Scorpi on Team) OUTPATIENT [id number] f/u on JOELLE Chamberlain 09/04 Released with Work/Duty Limitations [facility] [place](Scor pion Team) [facility] Optometry ) OUTPATIENT [id number] old prescri p and request info about laser surgery JOCELYNE SCHWARTZ 12/08 Released w/o Limitations [facility] Optomet ry) [facility]) OUTPATIENT [id number] mha/430 [id number] LEOBARDO GRESHAM 03/17 Released w/o Limitations [facility] Red) [facility] Green) OUTPATIENT [id number] 3 pha/430 6745 ROGELIO KENDRICK 03/18 Released w/o Limitations [facility] Green) [facility] Hearing Conservat ion) OUTPATIENT [id number] 6 Notes Entered by: JUDAH OVERTON 18 Mar 2019 0957 ------- ------- ------- ------- -- Audiogr am JUDAH HUERTA 03/18 Released w/o Limitations [facility] Hearing Conserv ation) [facility] Blue) OUTPATIENT [id number] 7 Notes Entered by: MEG REEVES 16 Jul 2019 0917 ------- ------- ------- ------- -- Flu late entry 019 MEG REEVES 07/16 Released w/o Limitations [facility] Blue) [facility] Optometry ) OUTPATIENT [id number] WRESP JOCELYNE SCHWARTZ 08/19 Released w/o Limitations [facility] Optomet ry) [facility]) OUTPATIENT [id number] initial consult IFRAH NGUYEN 09/22 Released w/o Limitations [facility] Ophthal mology) [facility] Ophthalmo [facility]) OUTPATIENT [id number] BRIEF SHANNON SQUIRES 10/26 Released w/o Limitations [facility] Ophthal [facility]ology) [facility] Ophthalmo [facility]) OUTPATIENT [id number] 1 consent SHANNON SQUIRES 10/28 Released with Work/Duty Limitations [facility] Ophthal [facility]ology) [facility] Ophthalmo [facility]) OUTPATIENT [id number] 1 1 day pop lasSHANNON Milner 10/29 Released w/o Limitations [facility] Ophthal mology) [facility] Ophthalmo [facility]) OUTPATIENT [id number] 7 1 week pop SHANNON Mont[place]ro 11/03 Released w/o Limitations [facility] Ophthal [facility]ology) [facility] Optometry ) OUTPATIENT [id number] 7 f/u lasik surgery - [id number] JOCELYNE SCHWARTZ 11/30 Released w/o Limitations [facility] Optomet ry) [facility]) OUTPATIENT [id number] Sleep initial /////// LEOBARDO GRESHAM 12/08 Released w/o Limitations [facility]) [facility] Green) OUTPATIENT [id number] Notes Entered by: JUMA SANDOVAL 17 Dec 2019 1534 ------- ------- ------- ------- -- ROGELIO Ortega 12/16 Released w/o Limitations [facility]) [facility]) TELE CONSULT [id number] Notes Entered by: Manju KENDRICK 21 Dec 2019 0828 ------- ------- ------- ------- -- FLY Phillips 12/20 [facility]) [facility]) OUTPATIENT [id number] Notes Entered by: ALISE BELTRAN 19 Jan 2020 1057 ------- ------- ------- ------- -- SINGH Mendoza 01/18 Released w/o Limitations [facility]) [facility] Hearing Conservat ion) OUTPATIENT [id number] 6 Notes Entered by: Nicholas NICHOLAS 24 Jan 2020 1411 ------- ------- ------- ------- -- audiogr am ALANIS NICHOLAS 01/23 Released w/o Limitations [facility] Hearing Conserv ation) [facility]) OUT[facility] [id number] [facility] [phone] FRANK TRONCOSO 01/30 Released w/o Limitations [facility]) [facility]) TELE CONSULT [id number] Notes Entered by: FERMIN TORRESA Hammad 10 Feb 2020 0849 ------- ------- ------- ------- -- Pradip rdz to [facility] BOBBY VENCES 02/09 [facility]) [facility]) TELE CONSULT [id number] Notes Entered by: ANN TORRES BINH M 14 Feb 2020 0715 ------- ------- ------- ------- -- TEJINDER Bruno 02/13 [facility]) [facility] Green) OUTPATIENT [id number] Notes Entered by: TEJINDER MCALLISTER 17 Feb 2020 1014 ------- ------- ------- ------- -- care coordin ation follow up TEJINDER MCALLISTER 02/16 Released w/o Limitations [facility] M[facility] Green) [facility]) OUTPATIENT [id number] Notes Entered by: TEJINDER MCALLISTER 23 Feb 2020 1447 ------- ------- ------- ------- -- new authori TEJINDER Edgar 02/22 Released w/o Limitations [facility] [place] [facility] Outpatient Encounter [id number] 07/29 [place] [facility] [place] [facility] Outpatient Encounter [id number] 07/29 [place] [facility] [place] [facility] Outpatient Encounter [id number] 09/07 [facility] PRO PHONE CALL 11-20 MIN [id number] Diagnos is: ICD-10- CM F41.9 Anxiety disorde r, unspeci fied
KEITH ACEVEDO ES Piyush 09/07 [facility] PRO PHONE CALL 11-20 MIN [id number] Diagnos is: ICD-10- CM F41.9 Anxiety disorde r, unspeci fied
KEITH ACEVEDO ES D 09/07 [place] [facility] [place] [facility] Outpatient Encounter [id number] 09/14 [facility] [place] [facility] Outpatient Encounter [id number] 10/11 [facility] Procedures Combined list of: 1) Procedures from Department of Veterans Affairs facilities going back up to thelast 18 months, not all VA non-surgical procedures are included; 2) All procedures from the Department of Defense facilities. Procedure Procedure Type Code Date Perfomer Comments [facility] e SKIN TEST; TUBERCULOSIS, INTRADERMAL [facility] IMMUNIZATION ADMINISTRATION (INCLUDES PERCUTANEOUS, INTRADERMAL, SUBCUTANEOUS, OR INTRAMUSCULAR INJECTIONS); 1 VACCINE (SINGLE OR COMBINATION VACCINE/TOXOID) [facility] HEPATITIS A AND HEPATITIS B VACCINE (HEPA-HEPB), ADULT DOSAGE, FOR INTRAMUSCULAR USE [facility] FITTING OF SPECTACLES, EXCEPT FOR APHAKIA; MONOFOCAL [facility] SKIN TEST; TUBERCULOSIS, INTRADERMAL [facility] SKIN TEST; TUBERCULOSIS, INTRADERMAL [facility] COORDINATED CARE FEE, RISK ADJUSTED MAINTENANCE [facility] COORDINATED CARE FEE, RISK ADJUSTED MAINTENANCE [facility] SCREENING TEST OF VISUAL ACUITY, QUANTITATIVE, BILATERAL [facility] PATIENT EDUCATION, NOT OTHERWISE CLASSIFIED, NON-PHYSICIAN PROVIDER, INDIVIDUAL, PER SESSION [facility] TELE ASSESS & MGT SRV PROV QUAL NONPHYS HLTH CARE PRO TO EST PAT,PARENT,GUARD NOT ORIG REL ASSESS & MGT SRV PROV W/IN PREV 7 DAYS NOR LEAD ASSESS & MGT SRV/PX W/IN NXT 24 HR/SOON APT;5-10 MIN MED DIS [facility] BRIEF EMOTIONAL/BEHAVIORA L ASSESSMENT (EG, DEPRESSION INVENTORY, ATTENTION-DEFICIT/H YPERACTIVITY DISORDER [ADHD] SCALE), WITH SCORING AND DOCUMENTATION, PER STANDARDIZED INSTRUMENT [facility] LASER IN SITU KERATOMILEUSIS (LASIK) [facility] POSTOPERATIVE FOLLOW-UP VISIT, NORMALLY INCLUDED IN THE SURGICAL PACKAGE, INDICATE THAT EVALUATION & MANAGEMENT SERVICE WAS PERFORMED DURING A POSTOPERATIVE PERIOD REASON RELATED ORIGINAL PROCEDURE [facility] POSTOPERATIVE FOLLOW-UP VISIT, NORMALLY INCLUDED IN THE SURGICAL PACKAGE, INDICATE THAT EVALUATION & MANAGEMENT SERVICE WAS PERFORMED DURING A POSTOPERATIVE PERIOD REASON RELATED ORIGINAL PROCEDURE [facility] LASER IN SITU KERATOMILEUSIS (LASIK) [facility] OPHTHALMOLOGICAL SERVICES: MEDICAL EXAMINATION AND EVALUATION, WITH INITIATION OR CONTINUATION OF DIAGNOSTIC AND TREATMENT PROGRAM; INTERMEDIATE, ESTABLISHED PATIENT [facility] OPHTHALMIC ULTRASOUND, ECHOGRAPHY, DIAGNOSTIC; CORNEAL PACHYMETRY, UNILATERAL OR BILATERAL (DETERMINATION OF CORNEAL THICKNESS) [facility] COMPUTERIZED CORNEAL TOPOGRAPHY, UNILATERAL OR BILATERAL, WITH INTERPRETATION AND REPORT [facility] IMMUNIZATION ADMINISTRATION (INCLUDES PERCUTANEOUS, INTRADERMAL, SUBCUTANEOUS, OR INTRAMUSCULAR INJECTIONS); 1 VACCINE (SINGLE OR COMBINATION VACCINE/TOXOID) [facility] PURE TONE AUDIOMETRY (THRESHOLD), AUTOMATED; AIR ONLY [facility] SCREENING TEST OF VISUAL ACUITY, QUANTITATIVE, BILATERAL [facility] BRIEF EMOTIONAL/BEHAVIORA L ASSESSMENT (EG, DEPRESSION INVENTORY, ATTENTION-DEFICIT/H YPERACTIVITY DISORDER [ADHD] SCALE), WITH SCORING AND DOCUMENTATION, PER STANDARDIZED INSTRUMENT [facility] FITTING OF SPECTACLES, EXCEPT FOR APHAKIA; MONOFOCAL [facility] SCREENING TEST OF VISUAL ACUITY, QUANTITATIVE, BILATERAL 011 [facility] Ear mold/insert, not disposable, any type CASILLASGAXIOL AJUDAH Patient education, not otherwise cla ified, non-physician provider, individual, per se ion CASILLASGAXIOL AJUDAH Threshold Audiogram (Pure Tone) Automated Threshold Audiogram (Pure Tone) Automated 0208T CASILLASGAXIOL A, JUDAH Paul Psychometric Emotional / Behavioral A e ment Psychometric Emotional / Behavioral Assessment [phone] LEOBARDO GRESHAM [facility] Spectacles Services Fitting Monofocal Except For Aphakia Spectacles Services Fitting Monofocal Except For Aphakia [phone] JOCELYNE SCHWARTZ [facility] Ophthalmological New Patient Start Comprehensive Care Ophthalmological New Patient Start Comprehensive Care [phone] JOCELYNE SCHWARTZ [facility] Determination Of Refractive State Determination Of Refractive State 68276 019 JOCELYNE SCHWARTZ [facility] Screening Test Of Visual Acuity, Quantitative, Bilateral Screening Test Of Visual Acuity, Quantitative, Bilateral [phone] JOHN WOODARD [place] WITHOUT GLASSES 20/400 OU VA WITH GLASSES 20/20 OU [facility] UPDATED 12/04 FOR VISION READINESS. [facility] Determination Of Refractive State Determination Of Refractive State 70611 006 ALICE TATUM Spectacles Services Fitting Monofocal Except For Aphakia Spectacles Services Fitting Monofocal Except For Aphakia 08887 006 ALICE TATUM [facility] Influenza Split Virus Vaccine IM With Preservative Quadrivalent 0.50mL Dosage Influenza Split Virus Vaccine IM With Preservative Quadrivalent 0.50mL Dosage 03982 MEG REEVES [facility] Immunization Administration By Injection, One Vaccine Immunization Administration By Injection, One Vaccine 44077 MEG REEVES [facility] Ophthalmological Prior Patient Start Comprehensive Care Ophthalmological Prior Patient Start Comprehensive Care 57486 EFREN [facility] Determination Of Refractive State Determination Of Refractive State 96687 SCHWARTZ [facility] Computerized Corneal Topography Computerized Corneal Topography 35856 WENDEL [facility] Ophthalmological New Patient Start Comprehensive Care Ophthalmological New Patient Start Comprehensive Care 51517 IFRAH NGUYEN [facility] Corneal Pachymetry Both Eyes Corneal Pachymetry Both Eyes 49093 IFRAH NGUYEN [facility] Laser in situ keratomileusis (LASIK) JIMBO ROJAS see [facility] for surgery documents [facility] Postoperative Visit, Without Charge Postoperative Visit, Without Charge 92504 SHANNON SQUIRES [facility] Laser in situ keratomileusis (LASIK) JOCELYNE SCHWARTZ [facility] Behavioral health outreach service (planned approach to reach a targeted population) LEOBARDO GRESHAM [facility] Psychometric Emotional / Behavioral A e ment Psychometric Emotional / Behavioral Assessment 29793 LEOBARDO GRESHAM BHM-20, CSSRS, RIP, [place] Sleepiness scale [facility] Non-Physician Phone Call To Patient/Provider Brief (5-10min) Non-Physician Phone Call To Patient/Provider Brief (5-10min) 83605 FLY SHER [facility] Threshold Audiogram (Pure Tone) Automated Threshold Audiogram (Pure Tone) Automated 0208T ALANIS NICHOLAS [facility] Patient education, not otherwise cla ified, non-physician provider, individual, per se ALANIS Jiang [facility] Coordinated care fee, risk adjusted maintenance TEJINDER MCALLISTER [facility] Social History Combined list of available smoking, tobacco, and other social history from Department of Defense and Veterans Affairs facilities. Social History Type Response Date Comment Sourc e Tobacco smoking status NHIS LIFETIME NON-TOBACCO USER 12/18/2010 [facility] This section is an empty social history section. [facility] Plan of Care List of future care activities from Department of Veterans Affairs facilities. Additional future care activities may be listed in the Assessment and Plan section. Date/Time Care Activity Care Activity Detail Facili ty 10/20/2024 AMBULATORY - [facility]CHIAT[facility] 10/20/2024 AMBULATORY - PSYCHIATRY [facility] 09/07/2024 Consult Order NIVIA PERALTA OUTPT Cons Change Management Analyst[facility] ([facility])
--- NOTE | 2024-10-17 05:46 | ED.NURSE ---
@0300, MD applied wrist splint.
--- NOTE | 2024-10-17 06:57 | ED_ITS ---
HPI - General Adult General Chief complaint: Extremity Pain/Injury, Upper Stated complaint: Left Wrist Injury Time Seen by Provider: 10/17/24 03:30 History of Present Illness HPI narrative: pt heard a pop on left wrist. Event happened around 1999. Pt unable to sleep due to pain. Pt would like wrist checked out. 38-year-old man presenting to the emergency department following sudden pain, a pop in the left wrist. 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 Essentially a FOOSH/hyper extension mechanism of the left wrist. A sudden pop in pain and some swelling. Actually having trigger finger surgery on Friday.? Says this may have felt similar; as if tendon got stuck.? Is on all fours with left wrist extended when felt a pop and had intense pain. Related Data Previous Rx's ?Medication ?Instructions ?Recorded omeprazole 20 mg capsule,delayed 20 mg PO QDAY #90 caps 05/06/24 release oxycodone 5 mg tablet 5 mg PO Q4-8H PRN pain #5 tabs 10/18/24 Allergies Allergy/AdvReac Type Severity Reaction Status Date / Time No Known Drug Allergies Allergy Verified 10/15/24 08:47 Review of Systems Status of ROS: Reports: 6 or more systems reviewed and unremarkable except as noted in History and below [facility] Medical History Tendinitis of left rotator cuff ?M75.82 - Other shoulder lesions, left shoulder (ICD-10) Arthritis of left acromioclavicular joint ?M19.012 - Primary osteoarthritis, left shoulder (ICD-10) GERD (gastroesophageal reflux disease) ?K21.9 - Gastro-esophageal reflux disease without esophagitis (ICD-10) Colitis ?K52.9 - Noninfective gastroenteritis and colitis, unspecified (ICD-10) Surgical History Status post trigger finger release (10/18/24) ?Z98.890 - Other specified postprocedural states (ICD-10) S/P peroneal tendon repair (08/22/21) ?Z98.890 - Other specified postprocedural states (ICD-10) History of hip surgery ?Z98.890 - Other specified postprocedural states (ICD-10) Hx of LASIK ?Z98.890 - Other specified postprocedural states (ICD-10) History of foot surgery ?Z98.890 - Other specified postprocedural states (ICD-10) History of hand surgery ?Z98.890 - Other specified postprocedural states (ICD-10) Family History Paternal Grandfather Diabetes Pancreatic cancer Father Heart disease Sleep apnea Nicotine dependence Maternal Grandfather Stroke Social History Narrative: . 2 children. [employer] [place]. 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 Alcohol, daily 2 servings/day. No illicit drug use. Nonsmoker. Smoking Status: Never smoker Non-prescribed substance use: denies use service: No Exam Narrative: Exam Narrative: Arrives here wearing a walking boot on the left ankle. Is clearly uncomfortable favoring the left wrist/arm. On physical exam there is some fullness or puffiness over the dorsum of the wrist and into the 2nd metacarpal.? Tender in these same areas.? Intact extension flexion at all joints though very painful particularly involving the i ndex finger to extend. Const: Vital Signs, click to edit/add: Vital Signs - 24 hr 10/17/24 01:50 Temperature 98.0 F Pulse Rate [Left P ulse Oximeter] 84 Respiratory Rate 16 Blood Pressure [Ri ght Upper Arm] 127/95 H Pulse Oximetry 96 Oxygen Delivery Me thod Room Air Documenting provider has reviewed patient's vital signs: yes Course Vital Signs Vital signs: Initial Vital Signs Temperature 98.0 F 10/17/24 01:50 Temperature Source Temporal Artery Scan 10/17/24 01:50 Pulse Rate 84 10/17/24 01:50 Pulse Rhythm Regular 10/17/24 01:50 Respiratory Rate 16 10/17/24 01:50 Blood Pressure 127/95 H 10/17/24 01:50 Blood Pressure Mean 105 10/17/24 01:50 Blood Pressure Position Sitting 10/17/24 01:50 Pulse Oximetry 96 10/17/24 01:50 Oxygen Delivery Method Room Air 10/17/24 01:50 Vital Signs Temperature 98.0 F 10/17/24 01:50 Pulse Rate 84 10/17/24 01:50 Respiratory Rate 16 10/17/24 01:50 Blood Pressure 127/95 H 10/17/24 01:50 Pulse Oximetry 96 10/17/24 01:50 Oxygen Delivery Method Room Air 10/17/24 01:50 Temperature 98.0 F 10/17/24 01:50 Pulse Rate 84 10/17/24 01:50 Respiratory Rate 16 10/17/24 01:50 Blood Pressure 127/95 H 10/17/24 01:50 Pulse Oximetry 96 10/17/24 01:50 Oxygen Delivery Method Room Air 10/17/24 01:50 Medications Administered Medications: Discontinued Medications Generic Name Dose Route Start Last Admin Trade Name Dwayneq PRN Reason Stop Dose Admin Ibuprofen 600 mg 10/17/24 05:29 10/17/24 02:10 Ibuprofen 200 Mg Tablet PO 10/17/24 05:30 600 mg ONCE ONE Administration Medical Decision Making MDM Narrative Medical decision making narrative: I suppose may have sprained his wrist. There might have been some slippage or catching of tendon/sheath; seems to be repeatedly prone to this; difficulty with tendons. Would check for proper orientation of carpals. Doubtful fracture though could have been an avulsion fracture I suppose. Otherwise wrist sprain. Ordered for ibuprofen. Ice pack. Three-view x-ray of left wrist independently reviewed by me looks to be without acute abnormality. I do not see marked osteoarthritic changes either. Normal appearing scaphoid. I did place in a cinch lock wrist brace. This did provide some improvement in symptoms. Is worried about degree of pain in would appreciate opiate pain medication if needed. Anticipate shortly being re-evaluated by orthopedics. See patient discharge plan for further discussion Your preliminary diagnosis is wrist strain/sprain Seems that maybe in the mechanism of injury as you described, some bones shifted and now you have some fluid in the joint. I like the [employer] ([employer] brand ice bags you can buy at [employer].? Fill with ice and some water. I would ice your wrist to 3 times daily over the next few days. See handout on wrist sprain for some ideas for exercises once the initial sharp pain has faded somewhat. Could review this also though on follow-up with your orthopedist. Wear this splint for comfort over the next week.? Follow-up in 7-10 days if simply not improved As requested am prescribing a small quantity of Percocet from [facility]. Otherwise I would take ibuprofen or acetaminophen.? Can take up to 800 mg of ibuprofen up to 1000 mg of acetaminophen per dose.? Remember that each tablet of Percocet contains 325 mg of acetaminophen. Discharge Plan Discharge Clinical Impression: Left wrist sprain Patient Disposition: Home, Self-Care Condition: Stable Additional Instructions: Your preliminary diagnosis is wrist strain/sprain Seems that maybe in the mechanism of injury as you described, some bones shifted and now you have some fluid in the joint. I like the [employer] ([employer] brand ice bags you can buy at [employer].? Fill with ice and some water. I would ice your wrist to 3 times daily over the next few days. See handout on wrist sprain for some ideas for exercises once the initial sharp pain has faded somewhat. Could review this also though on follow-up with your orthopedist. Wear this splint for comfort over the next week.? Follow-up in 7-10 days if simply not improved As requested am prescribing a small quantity of Percocet from [facility]. Otherwise I would take ibuprofen or acetaminophen.? Can take up to 800 mg of ibuprofen up to 1000 mg of acetaminophen per dose.? Remember that each tablet of Percocet contains 325 mg of acetaminophen. 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
== END 2024-10-17 03:31 | disposition home or self-care (01) ==
PROVIDERS: Emergency Provider Family Medicine; PCP Nurse Practitioner Family
DX: S63.502A Unspecified sprain of left wrist, initial encounter (principal); X58.XXXA Exposure to other specified factors, initial encounter
CPT/HCPCS: 73110; 99283; 99284; A9270

== ENCOUNTER 2024-10-18 06:49 | Day surgery (SDC) | payer OTHER, SELFPAY ==
[2024-10-18] MEDS: BUPIVACAINE 0.5% 30 ML INJECTION (06:35)
[2024-10-18] MEDS: LIDOCAINE 1%-EPI 1:100,000 20 ML INFILTRATI (06:35)
--- OUTSIDE RECORDS SUMMARY | 2024-10-18 06:51 | XMS_ITS | Clinical Summary ---
Author Organization [employer] [facility] [employer] Address [address] [place] [address] Care Team Providers Care Town Manager Name Role Phone Inactive, Administrativel Primary Care Provider Source Comments If you need additional information that is not available on Care Everywhere, please contact our Medical Records Department during business hours (Friday - Friday, 8 am - 5 pm) at . 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 [place] [address] PCP - General 10/25/15
--- OUTSIDE RECORDS SUMMARY | 2024-10-18 06:51 | XMS_ITS | Clinical Summary ---
Author Organization [facility] Address [address] [facility] [place] [address] Care Team Providers Care Ward Nurse Name Role Phone Unavailable Primary Care Provider [...] Adults 18 yrs or above (or HM Modifier)([facility]) 12/15/2001 Hepatitis C Virus Infection in Adolescents and Adults: Screening (or Modifier) ([facility]) 12/15/2001 SDOH Screening Reminder: Radha ually for all adults ([facility]) 12/15/2001 Tobacco Smoking Cessation: i n Adults excluding Women: Behavioral and Pharmacotherapy Interventions ([facility]) 12/15/2001 DTaP/Tdap/Td Vaccines ([facility]) (1 - Tdap) 12/15/2002 Lipid Screening: Every 5 yrs for Men aged 35+ (or HM Modifier) ([facility]) 2019 Flu Vaccination: Yearly for ages 18mos through 64 years (or Modifier)([facility]) 05/06/2024 COVID-19 Vaccine Screening: Initial Series and Booster Status ([facility]) ( - 2023-25 season) 2024 Zoster/Shingles Vaccine Seri es Screening: Adults aged 18+ yrs (or HM Modifiers)([facility]) (1 of 2) 12/15/2033 Pneumococcal Vaccination Scr eening: Pts 0-19 & 19-64 yrs of age ([facility]) Aged Out No longer eligible based on patient's age to complete this topic Medical Devices Not on file
--- OUTSIDE RECORDS SUMMARY | 2024-10-18 06:51 | XMS_ITS | Continuity of Care Document ---
Author Name 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 It does not include entries that were removed or entered in error. Problem Status Onset Date Problem Type Date of Resolution Comments Source visit for: screening exam depression Inactive 07/26/20 11 Condition [facility] Myopia, bilateral Active 10/03/18 99 Condition [facility] Regular astigmatism, bilateral Active 10/03/18 99 Condition [facility] visit for: services physical Active Condition [facility] tendonitis bicipital left Active Condition [facility] epistaxis Inactive Condition [facility] joint pain, localized in the left shoulder Active Condition [facility] assessment of patient condition work status Inactive Condition [facility] blepharitis Inactive Condition [facility] gastroenteritis Inactive Condition [facility] visit for: examination of subpopulation Inactive Condition [facility] astigmatism Inactive Condition [facility] refractive error - myopia Inactive Condition [facility] Adjustment Disorder with Anxiety (ICD-9-CM 309.24) Active Condition [facility] Concussion W/O Coma Active Condition [facility] Gastroesophageal Reflux Disorder * (ICD-9-CM 530.81) Active Condition [facility] Headaches * (ICD-9-CM 784.0) Active Condition [facility] Pain in joint involving shoulder region (ICD-9-CM 719.41) Active Condition [facility] Psychological factors affecting other physical condition (ICD-9-CM 316./V62.89) Active Condition [facility] Diagnosis: ICD-10-CM F41.9 Anxiety disorder, unspecified Active Diagnosis [facility] Medications Combined list of outpatient medications from [...] ORAL, [facility], 1000 ea. BOTTLE Active [id number] 2023 30 Pharmac y Data Transac tion Service Facilit y ESOMEPRAZOL E MAGNESIUM 40MG CAP,EC TAKE 1 CAPSULE BY MOUTH EVERY DAY ORAL ACTIVE NENA SUE ER A 2010 [facility] HYDROCODONE -ACETAMINOP HEN (HYDROCODON E/ACETAMINO PHEN), 5MG-325MG, TABLET, ORAL, M[place]INCKROD T PH, 500 ea. BOTTLE Active [id number] 2023 21 Pharmac y Data Transac tion Service Facilit y METHYLPREDN ISOLONE (methylpred nisolone), 4 MG, TAB DS PK, ORAL, ZYDUS PHARMACEU, 21 ea. DOSE-PACK Active [id number] 2023 21 Pharmac y Data Transac tion Service Facilit y OMEPRAZOLE (omeprazole ), 20 MG, CAPSULE DR, ORAL, [employer], 1000 ea. BOTTLE Active [id number] 4 2023 90 Pharmac y Data Transac tion Service Facilit y OMEPRAZOLE (OMEPRAZOLE ), 20MG, CAPSULE DR, ORAL, '[facility], 1000 ea. BOTTLE Active [id number] 4 2023 90 Pharmac y Data Transac tion Service Facilit y Allergies, Adverse Reactions, Alerts Combined list of allergies from Department of Defense and Veterans Affairs facilities. It does not include entries that were removed or entered in error. Substance Category Reaction Severity Reaction type Status Date Reported Comments Source No Known Allergies Drug allergy (disorder) active 12/08/2018 Nawaf Santos [facility] Immunizations Combined list of available immunizations from the Department of Defense and Veterans Affairs facilities. Immunization Series Date Given Administered By Site Reaction Lot Number CVX Code Drug Geriatrics Physician Status Comments Source COVID-19 (MODERNA), MRNA, LNP-S, PF, 50 MCG/0.5 ML (AGES 12+ YEARS) 2023 312 complet ed [facility] INFLUENZA, SPLIT VIRUS, TRIVALENT, PF 2023 140 complet ed [facility] PNEUMOCOCCAL CONJUGATE PCV20, POLYSACCHARID E [id number] CONJUGATE, ADJUVANT, PF 2023 216 complet ed [facility] COVID-19 (MODERNA), MRNA, LNP-S, PF, 50 MCG/0.5 ML (AGES 12+ YEARS) 2022 312 complet [facility] INFLUENZA, MDCK, QUADRIVALENT, PF 2022 171 complet [facility] TD (ADULT), 2 LF TETANUS TOXOID, PRESERVATIVE FREE, ADSORBED 2022 09 complet [facility] INFLUENZA, MDCK, QUADRIVALENT, PF 2021 171 complet [facility] COVID-19, mRNA, LNP-S, PF, 100 mcg or 50 mcg dose 2020 REECE MAYEN () Not Given COVID-19, mRNA, LNP-S, PF, 100 mcg or 50 mcg dose [facility] COVID-19 (MODERNA), MRNA, LNP-S, PF, 100 MCG/0.5ML DOSE OR 50 MCG/0.25ML DOSE 2020 207 complet [facility] INFLUENZA, SPLIT VIRUS, QUADRIVALENT, PF 2020 150 complet [facility] COVID-19 (MODERNA), MRNA, LNP-S, PF, 100 MCG/0.5ML DOSE OR 50 MCG/0.25ML DOSE 2020 207 complet [facility] COVID-19 (MODERNA), MRNA, LNP-S, PF, 100 MCG/0.5ML DOSE OR 50 MCG/0.25ML DOSE 2020 207 complet [facility] INFLUENZA, SPLIT VIRUS, QUADRIVALENT, PF 2019 150 complet [facility] Influenza, injectable, quadrivalent, preservative free 1 2018 [id number] 150 Transcribed (TRS) complet ed Influenza , injectabl e, quadrival ent, preservat michael free DoD Influenza, injectable, quadrivalent, preservative free 1 2018 [id number] 150 Seqirus (SEQ) complet ed Influenza , injectabl e, quadrival ent, preservat michael free [facility] influenza virus vaccine, unspecified formulation 1 2017 UNK 88 Unknown (UNK) comple t ed influenza virus vaccine, unspecifi ed formulati on [facility] INFLUENZA, SPLIT VIRUS, QUADRIVALENT, PRESERVATIVE 2017 158 complet ed [facility] influenza, injectable, quadrivalent, contains preservative 1 2016 [id number] 158 Seqirus (SEQ) comple t ed influenza , injectabl e, quadrival ent, contains preservat michael DoD INFLUENZA, HIGH-DOSE, TRIVALENT, PF 2016 135 complet ed [facility] Influenza, seasonal, injectable 1 2015 [id number] 141 Seqirus (SEQ) comple t ed Influenza , seasonal, injectabl e DoD INFLUENZA, SPLIT VIRUS, TRIVALENT, PF 2015 140 complet ed [facility] Influenza, seasonal, injectable 1 2015 [id number] 141 Novartis Dajietica l Preeti. (AUG) complet ed Influenza , seasonal, injectabl e DoD INFLUENZA, SPLIT VIRUS, TRIVALENT, PF 2015 140 complet ed [facility] INFLUENZA, SPLIT VIRUS, TRIVALENT, PRESERVATIVE 2014 141 complet ed [facility] measles, mumps and rubella virus vaccine 2 2014 UNK 03 Unknown (UNK) Not Given measles, mumps and rubella virus vaccine [facility] varicella virus vaccine 1 2014 UNK 21 Unknown (UNK) Not Given varicella virus vaccine DoD Influenza, injectable, quadrivalent, preservative free 1 2013 [id number] 150 Unknown (UNK) comple t ed Influenza , injectabl e, quadrival ent, preservat michael free DoD INFLUENZA, HIGH-DOSE, TRIVALENT, PF 2013 135 complet ed [facility] INFLUENZA, SPLIT VIRUS, TRIVALENT, PRESERVATIVE 2013 141 complet ed [facility] INFLUENZA, SPLIT VIRUS, QUADRIVALENT, PF 2013 150 complet ed [facility] Influenza, injectable, Madin Grace Canine Kidney, preservative free 1 2012 [id number] Novartis Dajietica l Preeti. (AUG) complet ed Influenza , injectabl e, Madin Grace Canine Kidney, preservat michael free DoD INFLUENZA, HIGH-DOSE, TRIVALENT, PF 2012 135 complet ed [facility] INFLUENZA, SPLIT VIRUS, TRIVALENT, PRESERVATIVE 2012 141 complet ed [facility] PNEUMOCOCCAL POLYSACCHARID E PPV23 2012 33 complet [facility] tetanus toxoid, reduced diphtheria toxoid, and acellular pertu is vaccine, adsorbed 1 2011 [id number] Sanofi Pasteur ([facility]) complet ed tetanus toxoid, reduced diphtheri a toxoid, and acellular pertussis vaccine, adsorbed DoD Influenza, seasonal, injectable, preservative free 1 2011 [id number] 140 VAZATA (SKB) complet ed Influenza , seasonal, injectabl e, preservat michael free DoD INFLUENZA, SPLIT VIRUS, TRIVALENT, PF 2011 140 complet ed [facility] TDAP 2011 115 complet [facility] Influenza, seasonal, injectable, preservative free 1 2010 [id number] 140 EXPO. (MED) complet ed Influenza , seasonal, injectabl e, preservat michael free DoD INFLUENZA, UNSPECIFIED FORMULATION 2009 88 complet ed [facility] influenza virus vaccine, split virus (incl. purified surface antigen)-reti red CODE 1 2009 [id number] 15 [employer] (CSL) complet ed influenza virus vaccine, split virus (incl. purified surface antigen)- retired CODE [facility] Novel influenza-H1N 1-09, injectable 1 2008 [id number] 127 Novartis Pharmaceutica Propers Preeti. (NOV) complet ed Novel influenza -S7K5-51, injectabl e DoD anthrax vaccine 3 2008 [id number] 24 Unknown (UNK) comple t ed anthrax vaccine DoD influenza virus vaccine, split virus (incl. purified surface antigen)-reti red CODE 1 2008 [id number] 15 Sanofi Pasteur (PMC) complet ed influenza virus vaccine, split virus (incl. purified surface antigen)- retired CODE DoD anthrax vaccine 2 2008 [id number] 24 [facility] ([facility]) complet ed anthrax vaccine DoD vaccinia (smallpox) vaccine 1 2008 [id number] [id number] 75 Unknown (UNK) complet ed vaccinia (smallpox ) vaccine DoD anthrax vaccine 1 2008 [id number] 24 [employer] [place] ([facility]) complet ed anthrax vaccine DoD typhoid Vi capsular polysaccharid e vaccine 1 2008 [id number] 101 Sanofi Pasteur (PMC) complet ed typhoid Vi capsular polysacch aride vaccine DoD influenza virus vaccine, live, attenuated, for intranasal use 1 2008 [id number] 111 Unknown (UNK) comple t ed influenza virus vaccine, live, attenuate d, for intranasa l use DoD TD(ADULT) UNSPECIFIED FORMULATION 2008 139 complet ed [employer] influenza virus vaccine, live, attenuated, for intranasal use 1 2007 [id number] 111 EXPO. (MED) complet ed influenza virus vaccine, live, [...] 2 Lf of diphtheria toxoid) 1 2005 [id number] 09 Sanofi Pasteur (PMC) complet ed tetanus and diphtheri a toxoids, adsorbed, preservat michael free, for adult use (2 Lf of tetanus toxoid and 2 Lf of diphtheri a toxoid) DoD poliovirus vaccine, inactivated 1 2005 [id number] 10 Sanofi Pasteur (PMC) complet ed polioviru s vaccine, inactivat ed DoD meningococcal polysaccharid e vaccine (MPSV4) 1 2005 [id number] 32 Sanofi Pasteur (PMC) complet ed meningoco ccal polysacch aride vaccine (MPSV4) DoD hepatitis A and hepatitis B vaccine 1 2005 [id number] 104 [employer] (SKB) complet ed hepatitis A and hepatitis B vaccine DoD influenza virus vaccine, live, attenuated, for intranasal use 1 2005 [id number] 111 EXPO. (MED) complet ed influenza virus vaccine, live, attenuate d, for intranasa l use DoD VARICELLA 1988 21 complet ed [place] [facility] Encounters Combined list of: 1) Encounters from Department of Veterans Affairs facilities going back up to thelast 18 months. 2) Encounters from the Department of Defense facilities going back up to 280 months. Location Location Details Encounter Type Encounter Number Reason For Visit Attending Provider ADM Date DC Date Status [facility] [id number] SEEMA TATUM 10/09 [facility] [id number] 05/27 Released w/o Limitations [facility] OUTPATIENT [id number] 11/21 Released w/o Limitations [facility] OUTPATIENT [id number] 12/11 Released w/o Limitations Theater Facilit y JOSEPH Falk([employer] Team) OUTPATIENT [id number] SHANNON Vaughn 07/25 Released w/o Limitations JOSEPH Addison(Scor pion Team) JOSEPH Falk(Scorpi on Team) OUTPATIENT [id number] JOELLE Childs 08/12 Released with Work/Duty Limitations JOSEPH Addison(Scor pion Team) JOSEPH Falk(Optome try Clinic) OUTPATIENT [id number] [facility] UPDATE JOHN [facility]ODARD 08/22 Released w/o Limitations JOSEPH Addison(Opto metry Clinic) JOSEPH Falk(Scorpi on Team) OUTPATIENT [id number] f/u on JOELLE Chamberlain 09/04 Released with Work/Duty Limitations [place](Scor pion Team) [facility] Optometry ) OUTPATIENT [id number] old prescri p and request info about laser surgery JOCELYNE SCHWARTZ 12/08 Released w/o Limitations [facility] Optomet ry) [facility]) OUTPATIENT [id number] mha/430 [id number] LEOBARDO GRESHAM 03/17 Released w/o Limitations [facility]) [facility] Green) OUTPATIENT [id number] pha/430 [id number] ROGELIO KENDRICK 03/18 Released w/o Limitations [facility]) [facility] Hearing Conservat ion) OUTPATIENT [id number] Notes Entered by: JUDAH OVERTON 18 Mar 2019 0957 ------- ------- ------- ------- -- Audiogr am JUDAH HUERTA 03/18 Released w/o Limitations [facility] Hearing Conserv ation) [facility] Blue) OUTPATIENT [id number] Notes Entered by: MEG REEVES 16 Jul 2019 0917 ------- ------- ------- ------- -- Flu late entry 019 MEG REEVES 07/16 Released w/o Limitations [facility]) [facility] Optometry ) OUTPATIENT [id number] WRESP JOCELYNE SCHWARTZ 08/19 Released w/o Limitations [facility] Optomet ry) [facility]) OUTPATIENT [id number] initial consult IFRAH NGUYEN 09/22 Released w/o Limitations [facility]) [facility]) OUTPATIENT [id number] BRIEF SHANNON SQUIRES 10/26 Released w/o Limitations [facility]) [facility]) OUTPATIENT [id number] consent SHANNON SQUIRES 10/28 Released with Work/Duty Limitations [facility]) [facility]) OUTPATIENT [id number] 1 1 day pop lasSHANNON Milner 10/29 Released w/o Limitations [facility]) [facility]) OUTPATIENT [id number] 1 week pop SHANNON Mont[place] 11/03 Released w/o Limitations [facility]) [facility] Optometry ) OUTPATIENT [id number] 7 f/u lasik surgery - [id number] JOCELYNE SCHWARTZ 11/30 Released w/o Limitations [facility] Optomet ry) [facility]) OUTPATIENT [id number] Sleep initial /////// LEOBARDO GRESHAM 12/08 Released w/o Limitations [facility]) [facility]) OUTPATIENT [id number] Notes Entered by: JUMA SANDOVAL 17 Dec 2019 1534 ------- ------- ------- ------- -- ROGELIO Ortega 12/16 Released w/o Limitations [facility]) [facility]) TELE CONSULT [id number] Notes Entered by: Manju KENDRICK 21 Dec 2019 0828 ------- ------- ------- ------- -- FLY Phillips 12/20 [facility]) [facility]) OUTPATIENT [id number] Notes Entered by: ALISE BELTRAN 19 Jan 2020 1057 ------- ------- ------- ------- -- SINGH Mendoza 01/18 Released w/o Limitations [facility]) [facility] Hearing Conservat ion) OUTPATIENT [id number] Notes Entered by: Nicholas NICHOLAS 24 Jan 2020 1411 ------- ------- ------- ------- -- audiogr am ALANIS NICHOLAS 01/23 Released w/o Limitations [facility] Hearing Conserv ation) [facility]) [facility]PATIENT [id number] [facility] [phone] FRANK TRONCOSO 01/30 Released w/o Limitations [facility]) [facility]) TELE CONSULT [id number] Notes Entered by: FERMIN TORRESA Hammad 10 Feb 2020 0849 ------- ------- ------- ------- -- Pradip rdz to [facility] BOBBY VENCES 02/09 [facility]) [facility]) TELE CONSULT [id number] Notes Entered by: ANN TORRES BINH M 14 Feb 2020 0715 ------- ------- ------- ------- -- TEJINDER Bruno 02/13 [facility]) [facility]) OUTPATIENT [id number] Notes Entered by: TEJINDER MCALLISTER 17 Feb 2020 1014 ------- ------- ------- ------- -- care coordin ation follow up TEJINDER MCALLISTER 02/16 Released w/o Limitations [facility]) [facility]) OUTPATIENT [id number] Notes Entered by: TEJINDER MCALLISTER 23 Feb 2020 1447 ------- ------- ------- ------- -- new authori TEJINEDR Edgar 02/22 Released w/o Limitations [facility]) [place] [facility] Outpatient Encounter [id number] 07/29 [place] [facility] [place] [facility] Outpatient Encounter [id number] 07/29 [place] [facility] [place] [facility] Outpatient Encounter [id number] 09/07 [facility] PRO PHONE CALL 11-20 MIN [id number] Diagnos is: ICD-10- CM F41.9 Anxiety disorde r, unspeci fied
KEITH ACEVEDO ES Piyush 09/07 [facility] ([facility]) [facility] PRO PHONE CALL 11-20 MIN [id number] Diagnos is: ICD-10- CM F41.9 Anxiety disorde r, unspeci fied
KEITH ACEVEDO ES D 09/07 [place] [facility] [place] [facility] Outpatient Encounter [id number] 09/14 [facility] [place] [facility] Outpatient Encounter [id number] 10/11 [facility] Procedures Combined list of: 1) Procedures from Department of Veterans Affairs facilities going back up to thelast 18 months, not all VA non-surgical procedures are included; 2) All procedures from the Department of Defense facilities. Procedure Procedure Type Code Date Perfomer Comments Sourc e SKIN TEST; TUBERCULOSIS, INTRADERMAL [facility] SKIN TEST; TUBERCULOSIS, INTRADERMAL [facility] SCREENING TEST OF VISUAL ACUITY, QUANTITATIVE, BILATERAL [facility] IMMUNIZATION ADMINISTRATION (INCLUDES PERCUTANEOUS, INTRADERMAL, SUBCUTANEOUS, OR INTRAMUSCULAR INJECTIONS); 1 VACCINE (SINGLE OR COMBINATION VACCINE/TOXOID) [facility] HEPATITIS A AND HEPATITIS B VACCINE (HEPA-HEPB), ADULT DOSAGE, FOR INTRAMUSCULAR USE [facility] FITTING OF SPECTACLES, EXCEPT FOR APHAKIA; MONOFOCAL [facility] SKIN TEST; TUBERCULOSIS, INTRADERMAL [facility] COORDINATED CARE FEE, RISK ADJUSTED MAINTENANCE [facility] COORDINATED CARE FEE, RISK ADJUSTED MAINTENANCE [facility] SCREENING TEST OF VISUAL ACUITY, QUANTITATIVE, BILATERAL [facility] PATIENT EDUCATION, NOT OTHERWISE CLASSIFIED, NON-PHYSICIAN PROVIDER, INDIVIDUAL, PER SESSION [facility] TELE ASSESS & MGT SRV PROV QUAL NONPHYS HLTH CARE PRO TO EST PAT,PARENT,GUARD NOT ORIG REL ASSESS & MGT SRV PROV W/IN PREV 7 DAYS NOR LEAD ASSESS & MGT SRV/PX W/IN NXT 24 HR/SOON APT;5-10 MIN MED DIS [facility] BRIEF EMOTIONAL/BEHAVIORA L ASSESSMENT (EG, DEPRESSION INVENTORY, ATTENTION-DEFICIT/H YPERACTIVITY DISORDER [ADHD] SCALE), WITH SCORING AND DOCUMENTATION, PER STANDARDIZED INSTRUMENT [facility] LASER IN SITU KERATOMILEUSIS (LASIK) [facility] POSTOPERATIVE FOLLOW-UP VISIT, NORMALLY INCLUDED IN THE SURGICAL PACKAGE, INDICATE THAT EVALUATION & MANAGEMENT SERVICE WAS PERFORMED DURING A POSTOPERATIVE PERIOD REASON RELATED ORIGINAL PROCEDURE [facility] POSTOPERATIVE FOLLOW-UP VISIT, NORMALLY INCLUDED IN THE SURGICAL PACKAGE, INDICATE THAT EVALUATION & MANAGEMENT SERVICE WAS PERFORMED DURING A POSTOPERATIVE PERIOD REASON RELATED ORIGINAL PROCEDURE [facility] LASER IN SITU KERATOMILEUSIS (LASIK) [facility] OPHTHALMOLOGICAL SERVICES: MEDICAL EXAMINATION AND EVALUATION, WITH INITIATION OR CONTINUATION OF DIAGNOSTIC AND TREATMENT PROGRAM; INTERMEDIATE, ESTABLISHED PATIENT [facility] OPHTHALMIC ULTRASOUND, ECHOGRAPHY, DIAGNOSTIC; CORNEAL PACHYMETRY, UNILATERAL OR BILATERAL (DETERMINATION OF CORNEAL THICKNESS) [facility] COMPUTERIZED CORNEAL TOPOGRAPHY, UNILATERAL OR BILATERAL, WITH INTERPRETATION AND REPORT [facility] IMMUNIZATION ADMINISTRATION (INCLUDES PERCUTANEOUS, INTRADERMAL, SUBCUTANEOUS, OR INTRAMUSCULAR INJECTIONS); 1 VACCINE (SINGLE OR COMBINATION VACCINE/TOXOID) [facility] PURE TONE AUDIOMETRY (THRESHOLD), AUTOMATED; AIR ONLY [facility] SCREENING TEST OF VISUAL ACUITY, QUANTITATIVE, BILATERAL [facility] BRIEF EMOTIONAL/BEHAVIORA L ASSESSMENT (EG, DEPRESSION INVENTORY, ATTENTION-DEFICIT/H YPERACTIVITY DISORDER [ADHD] SCALE), WITH SCORING AND DOCUMENTATION, PER STANDARDIZED INSTRUMENT [facility] FITTING OF SPECTACLES, EXCEPT FOR APHAKIA; MONOFOCAL [facility] Ear mold/insert, not disposable, any type CASILLASGAXIOL AJUDAH Patient education, not otherwise cla ified, non-physician provider, individual, per se ion CASILLASGAXIOL A, JUDAH Paul Threshold Audiogram (Pure Tone) Automated Threshold Audiogram (Pure Tone) Automated 0208T CASILLASGAXIOL A, JUDAH Paul Psychometric Emotional / Behavioral A e ment Psychometric Emotional / Behavioral Assessment [phone] LEOBARDO GRESHAM [facility] Spectacles Services Fitting Monofocal Except For Aphakia Spectacles Services Fitting Monofocal Except For Aphakia [phone] JOCELYNE SCHWARTZ [facility] Ophthalmological New Patient Start Comprehensive Care Ophthalmological New Patient Start Comprehensive Care [phone] JOCELYNE SCHWARTZ [facility] Determination Of Refractive State Determination Of Refractive State [phone] JOCELYNE SCHWARTZ [facility] Screening Test Of Visual Acuity, Quantitative, Bilateral Screening Test Of Visual Acuity, Quantitative, Bilateral [phone] [facility] WITHOUT GLASSES 20/400 OU VA WITH GLASSES 20/20 OU [facility] UPDATED 12/04 FOR VISION READINESS. [facility] Determination Of Refractive State Determination Of Refractive State [id number] ALICE TATUM Spectacles Services Fitting Monofocal Except For Aphakia Spectacles Services Fitting Monofocal Except For Aphakia [phone] ALICE TATUM [facility] Influenza Split Virus Vaccine IM With Preservative Quadrivalent 0.50mL Dosage Influenza Split Virus Vaccine IM With Preservative Quadrivalent 0.50mL Dosage 24814 MEG REEVES [facility] Immunization Administration By Injection, One Vaccine Immunization Administration By Injection, One Vaccine 14199 MEG REEVES [facility] Ophthalmological Prior Patient Start Comprehensive Care Ophthalmological Prior Patient Start Comprehensive Care [address] EFREN [facility] Determination Of Refractive State Determination Of Refractive State [address]32 SCHWARTZ [facility] Computerized Corneal Topography Computerized Corneal Topography [address]17 [place] [facility] Ophthalmological New Patient Start Comprehensive Care Ophthalmological New Patient Start Comprehensive Care 72735 IFRAH NGUYEN [facility] Corneal Pachymetry Both Eyes Corneal Pachymetry Both Eyes [id number] IFRAH NGUYEN [facility] Laser in situ keratomileusis (LASIK) JIMBO ROJAS see [facility] for surgery documents [facility] Postoperative Visit, Without Charge Postoperative Visit, Without Charge [id number] SHANNON SQUIRES [facility] Laser in situ keratomileusis (LASIK) JOCELYNE SCHWARTZ [facility] Behavioral health outreach service (planned approach to reach a targeted population) LEOBARDO GRESHAM [facility] Psychometric Emotional / Behavioral A e ment Psychometric Emotional / Behavioral Assessment [id number] LEOBARDO GRESHAM BHM-20, CSSRS, RIP, O'Brien Sleepiness scale [facility] Non-Physician Phone Call To Patient/Provider Brief (5-10min) Non-Physician Phone Call To Patient/Provider Brief (5-10min) [id number] FLY SHER [facility] Threshold Audiogram (Pure Tone) Automated Threshold Audiogram (Pure Tone) Automated [id number] ALANIS NICHOLAS [facility] Patient education, not otherwise cla ified, non-physician provider, individual, per se ALANIS Jiang [facility] Coordinated care fee, risk adjusted maintenance TEJINDER MCALLISTER [facility] Social History Combined list of available smoking, tobacco, and other social history from Department of Defense and Veterans Affairs facilities. Social History Type Response Date Comment Sourc e Tobacco smoking status NHIS LIFETIME NON-TOBACCO USER 12/18/2010 [facility] This section is an empty social history section. [facility] Plan of Care List of future care activities from Department of Veterans Affairs facilities. Additional future care activities may be listed in the Assessment and Plan section. Date/Time Care Activity Care Activity Detail Facili ty 10/20/2024 [facility] 10/20/2024 [facility] 09/07/2024 Consult Order NIVIA PERALTA OUTPT Cons Senior Analyst's [facility] [place] ([facility])
--- OUTSIDE RECORDS SUMMARY | 2024-10-18 06:51 | XMS_ITS | Clinical Summary ---
Author Organization [facility] Address [address] [place] [address] Care Team Providers Care Activity Aid Name Role Phone None Reported, Pcp Primary Care Provider Unavail able Source Comments Patient records contain information from all sites at [facility]. For routine questions regarding patient records, call [phone] during business hours, M-F 8:00 AM - 5:00 PM Central Time. Record requests for emergency care only can be directed to [phone] at any time.[facility] Allergies No known active allergies Medications * [...] often do you attend chur ch or pentecostal services? Never 03/14/2021 Do you belong to any clubs o r organizations such as religious groups, unions, fraternal or [...] Answer Date Recorded PHQ-2 Score 0 03/15/2021 [facility] - [...] place to sleep or slept in a fci (including now)? 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 2.3mm X 22mm - [employer]ajas [id number] Implanted:Qty: 1 on 12/03/2012 Hardware e.g. pins/screws/ rods [employer] Description:Device Manufactu rer - [employer] Device Status Text - [id number]. Trimed K-Wire 0.8 120mm - [place] [id number] Implanted:Qty: 4 on 12/03/2012 Hardware e.g. pins/screws/ rods [employer] Description:Device Manufactu rer - [employer].. Device Status Text - [id number]. Trimed-Screw Magalie. 2.3mm X 24mm - [employer] [id number] Implanted:Qty: 1 on 12/03/2012 Hardware e.g. pins/screws/ rods [employer] Description:Device Manufactu rer - [employer].. Device Status Text - [id number]. Self Tap-Screw 4.5 X 100 - [employer]ajas [id number] Implanted:Qty: 1 on 08/25/2017 Hardware e.g. pins/screws/ rods [employer]ynthes Description:Device Manufactu rer - [employer]ynthe[employer]. Device Status Text - [id number]. Self Tap-Screw 4.5 X 64 - [place] [id number] Implanted:Qty: 1 on 08/25/2017 Hardware e.g. pins/screws/ rods [employer]ynthe[employer] Description:Device Manufactu rer - [employer]ynthe[employer]. Device Status Text - [id number]. Self Tap-Screw 4.5 X 76 - [place] [id number] Implanted:Qty: 1 on 08/25/2017 Hardware e.g. pins/screws/ rods [employer] Description:Device Manufactu rer - [employer]ynthe[employer]. Device Status Text - HARDWARE-[id number]. Insurance Care Teams Activity Aid Relationship Specialty Start Date End Date None Reported, Pcp PCP - General Family Medicine 07/19/24
--- OUTSIDE RECORDS SUMMARY | 2024-10-18 06:51 | XMS_ITS ---
Author Organization [facility] Address [address] [place] [address] Care Team Providers Care Annealing Oven Operator Name Role Phone Unavailable Unavailable Unavailable Surgery Details Not on file Complications Check Surgery Details section. Procedure Estimated Blood Loss Check Surgery Details section. Procedure Findings Check Surgery Details section. Procedure Specimens Taken Check Surgery Details section.
--- OUTSIDE RECORDS SUMMARY | 2024-10-18 06:51 | XMS_ITS | Referral Summary ---
Author Organization [facility] Address [address] [place] [address] Care Team Providers Care Online Media Director Name Role Phone None Reported, Pcp Primary Care Provider Unavail able Source Comments Patient records contain information from all sites at [facility]. For routine questions regarding patient records, call [phone] during business hours, M-F 8:00 AM - 5:00 PM Central Time. Record requests for emergency care only can be directed to [phone] at any time.[facility] Allergies No known active allergies Medications * [...] often do you attend chur ch or anabaptism services? 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 2.3mm X 22mm - [employer]ajas [id number] Implanted:Qty: 1 on 12/03/2012 Hardware e.g. pins/screws/ rods [employer] Description:Device Manufactu rer - [employer].. Device Status Text - [id number]. Trimed K-Wire 0.8 120mm - [place] [id number] Implanted:Qty: 4 on 12/03/2012 Hardware e.g. pins/screws/ rods [employer] Description:Device Manufactu rer - [employer].. Device Status Text - [id number]. Trimed-Screw Magalie. 2.3mm X 24mm - [employer]ajas [id number] Implanted:Qty: 1 on 12/03/2012 Hardware e.g. pins/screws/ rods [employer] Description:Device Manufactu rer - [employer].. Device Status Text - [id number]. Self Tap-Screw 4.5 X 100 - [employer]ajas [id number] Implanted:Qty: 1 on 08/25/2017 Hardware e.g. pins/screws/ rods [employer] Description:Device Manufactu rer - [employer]ynthe[employer]. Device Status Text - [id number]. Self Tap-Screw 4.5 X 64 - [place] [id number] Implanted:Qty: 1 on 08/25/2017 Hardware e.g. pins/screws/ rods [employer] Description:Device Manufactu rer - [employer]ynthe[employer]. Device Status Text - [id number]. Self Tap-Screw 4.5 X 76 - [place] [id number] Implanted:Qty: 1 on 08/25/2017 Hardware e.g. pins/screws/ rods [employer] Description:Device Manufactu rer - [employer]ynthe[employer]. Device Status Text - HARDWARE-[id number]. Insurance Care Teams Online Media Director Relationship Specialty Start Date End Date None Reported, Pcp PCP - General Family Medicine 07/19/24
[2024-10-18 07:03] VITALS: BP 133/104; PULSE 73; RESP 20; TEMP 36.1; O2SAT 98
[2024-10-18] MEDS: ETHYL CHLORIDE 1 APPLICATION 1 APPLIC TOPICAL (07:10)
[2024-10-18 08:03] VITALS: BP 141/90; PULSE 68; RESP 17; O2SAT 99
[2024-10-18 08:08] VITALS: BP 147/97; PULSE 73; RESP 17; O2SAT 99
[2024-10-18] MEDS: BACITRACIN OINTMENT BULK TUBE 1 APPLIC TOPICAL (08:10)
[2024-10-18 08:22] VITALS: BP 125/83; PULSE 71; RESP 20; TEMP 36.4; O2SAT 97
--- NOTE | 2024-10-18 09:13 | PM.ORPRC ---
Procedure Note Date of procedure: 10/18/24 Procedure: PREOPERATIVE DIAGNOSIS: 1. Right ring finger flexor tenosynovitis - trigger finger POSTOPERATIVE DIAGNOSIS: 1. Right ring finger flexor tenosynovitis - trigger finger PROCEDURE: 1. Right ring finger flexor tendon sheath open release (A1 rosa) SURGEON: David Robles MD. INSPECTOR MATERIAL DISPOSITION: VIVIEN Morrow ANESTHESIA: Local anesthetic 6ml via 50:50 mixture of 1% Lidocaine with epi and 0.5% marcaine plain EBL: 2mL IMPLANTS: None TOURNIQUET: None COMPLICATIONS: None evident INDICATIONS: The patient is a pleasant 38-year-old male who has experienced right ring finger catching/triggering for number of months. It has progressively gotten worse. Given the failure of nonoperative management, and how this affects daily life, surgery was recommended. DESCRIPTION OF PROCEDURE: Following a thorough discussion of risks, benefits, and alternatives consent was obtained and the operative digit(s) was marked. The patient was brought to the operating room and placed supine on the operating table. Local anesthesia induction was undertaken in preop holding. No antibiotics were administered as this was planned to be a local case only. Proper time-out was performed identifying proper patient, site, and procedure. The operative extremity was prepped and draped in the appropriate sterile fashion using ChloraPrep. An incision was made on the palmar surface of the hand overlying the MCP joint region of the appropriate digit(s) respecting the palmar creases being cautious not to cross these perpendicularly. Sharp incision through the skin, and blunt dissection through subcutaneous tissue allowing protection of crossing neurologic structures. The A1 rosa was visualized directly. It was incised sharply with a 15 blade. It was released completely from its distal to proximal extent under direct visualization. The tendon was inspected and found to be mildly striated consistent with some friction. Otherwise, it was intact. The tendon was removed out of the wound, and further inspected. The patient was asked to manually flex and extend the digits and showed no further catching. The catching, which was visualized initially, was no longer evident with reproduction of a manual fist and relaxation. Closure was performed with 4-O nylon in interrupted fashion. Soft dressings were applied, and the patient was transferred to the recovery room in stable condition. PLAN: 1. Encourage elevation of the operative extremity. 2. Range of motion of the fingers and hand/wrist as tolerated. 3. Ibuprofen/acetaminophen and/or oxycodone as needed for pain control. 4. Follow up with PA visit in 12-16 days for wound check and suture removal.
== END 2024-10-18 08:27 | disposition home or self-care (01) ==
PROVIDERS: PCP Nurse Practitioner Family; Visit Provider Orthopaedic Surgery Sports Medicine
PROC: (CPT 26055; principal; 2024-10-18 07:45)
DX: M65.341 Trigger finger, right ring finger (principal); M65.841 Other synovitis and tenosynovitis, right hand
CPT/HCPCS: 26055; J0665